=== PATIENT | male | born 1955 | race Caucasian/White ===

== ENCOUNTER 2017-01-09 09:42 | Outpatient (CLI) | payer OTHER ==
--- NOTE | 2017-01-09 11:17 | CT ---
CT CHEST WITHOUT CONTRAST: Date: 01/09/17 HISTORY: Lung cancer, restaging, status post radiation. FINDINGS: Comparison made with exam of 06/27/16. Absence of IV contrast reduces the sensitivity of exam, particularly for evaluation of mediastinal, hilar, and vascular structures. The nodule and adjacent patchy parenchymal density noted in the left suprahilar region on the previo us study demonstrates coalescence measuring 4.0 cm in largest AP dimension close to the mediastinal surface. Also noted is a new peripheral 7.0 mm nodule in the anterolateral aspect of the left upper lobe. Scarring in the right lung is again seen. No pleural or pericardial effusions are identified. Trache ostomy tube remains in place. No mediastinal lymphadenopathy is seen. There are vascular calcificati ons without evidence of aneurysmal dilatation of the abdominal aorta. There are degenerative changes in the spine. Upper abdominal tomograms demonstrate normal appearing adrenal glands. IMPRESSION: Interval worsening of the left upper lobe findings since 06/27/16. POS: [facility]
== END 2017-01-09 09:43 | disposition home or self-care (01) ==
LOC: CT 09:42
PROVIDERS: ATTEND Radiology Radiation Oncology
DX: C34.12 Malignant neoplasm of upper lobe, left bronchus or lung (principal); C32.0 Malignant neoplasm of glottis
CPT/HCPCS: 71250

== ENCOUNTER 2017-09-23 09:38 | Outpatient (CLI) | payer OTHER ==
--- NOTE | 2017-09-23 11:50 | CT ---
NONCONTRAST CT OF THE THORAX: INDICATION: History of lung cancer status post radiation; restaging exam. COMPARISON: CT of the thorax dated 01/09/17, 06/27/16, and 12/31/16. FINDINGS: The small pulmonary nodule seen within the left upper lobe peripherally on the comparison examination dated 01/09/17 has intervally enlarged now measuring 3.2 x 2.8 x 2 cm in its greatest AP, mediolatera l, and craniocaudad dimensions respectively. This abuts a confluent linear opacity projecting in the left suprahilar region into the left superior aspect of the mediastinum most suspicious for radiatio n fibrotic change. The extent of the geographic linear opacity within the left suprahilar region has increased in prominence from the comparison examination. There is a pulmonary nodule within the right upper lobe adjacent to an area of linear scarring that h as increased in size now measuring 7 mm where it previously measured 4.7 mm. The scarring along the right major fissure posteriorly on image 108 of the coronal series is stable. There is paraseptal em physema involving the lung apices. There is a right chest wall port in place. There is a tracheosto my tube in place. There has been interval development of healing rib fractures involving the left po sterolateral 9th and the left posterolateral 11th ribs. IMPRESSION: 1. Worsening nodular opacity seen within the region of a previously demonstrated 7 mm pulmonary nodu le in the left upper lobe. A component of this could be related to a mixture of radiation fibrosis a nd radiation pneumonitis; however, worsening lung mass is not excluded. There is an enlarging pulmon sathish nodule within the right upper lobe adjacent to some scarring within the right upper lobe now edgardo uring nearly 8 mm in size where it previously measured just under 5 mm. Short-term followup in 1-2 [facility] to document stability of the above findings is recommended. 2. The linear opacity projecting from the left suprahilar region appears slightly more prominent slava n on the prior examination which also may be related to worsening radiation fibrotic change. Short-t [facility] followup is recommended. 3. Tracheostomy tube and right chest wall port. 4. Scattered emphysema. 5. Interval development of healing left posterolateral 9th and 11th rib fractures. POS: [facility]
== END 2017-09-23 09:39 | disposition home or self-care (01) ==
LOC: SCSCT 09:38
PROVIDERS: ATTEND Radiology Radiation Oncology
DX: C34.90 Malignant neoplasm of unspecified part of unspecified bronchus or lung (principal); J98.4 Other disorders of lung; R91.8 Other nonspecific abnormal finding of lung field; J43.9 Emphysema, unspecified; S22.42XD Multiple fractures of ribs, left side, subsequent encounter for fracture with routine healing; Z93.0 Tracheostomy status
CPT/HCPCS: 71250

== ENCOUNTER 2017-11-17 08:17 | Day surgery (SDC) | payer OTHER, SELFPAY ==
[2017-11-17] MEDS ORDERED: PACLitaxel 150 MG in Sodium Chloride 0.9% 250 ML 250 ML IVPB SCH (09:30)
[2017-11-17] MEDS ORDERED: Sodium Chloride 0.9% 20 ML ONE (09:33)
[2017-11-17] MEDS ORDERED: Ondansetron HCl/PF 10 MG, Dexamethasone 10 MG in Sodium Chloride 0.9% 50 ML IVPB SCH (09:45)
[2017-11-17] MEDS ORDERED: CARBOplatin 250 MG in Sodium Chloride 0.9% 250 ML 250 ML IVPB SCH (09:45)
[2017-11-17] MEDS ORDERED: Ondansetron HCl/PF 10 MG in Sodium Chloride 0.9% 50 ML IVPB SCH (09:45)
[2017-11-17] MEDS ORDERED: Dexamethasone 10 MG in Sodium Chloride 0.9% 50 ML IVPB SCH (09:45)
[2017-11-17 12:34] VITALS: BP 143/94; TEMP 97.4
== END 2017-11-17 16:14 | disposition home or self-care (01) ==
LOC: ONC/OP 08:17
PROVIDERS: ATTEND Internal Medicine Hematology & Oncology
DX: Z51.11 Encounter for antineoplastic chemotherapy (principal); C32.0 Malignant neoplasm of glottis
CPT/HCPCS: 96367; 96413; 96417; A4216; J1100; J1642; J2405; J7050; J9045; J9267

== ENCOUNTER 2017-11-24 08:23 | Day surgery (SDC) | payer OTHER, SELFPAY ==
[2017-11-24] MEDS ORDERED: Sodium Chloride 0.9% 20 ML ONE (08:31)
[2017-11-24] MEDS ORDERED: PACLitaxel 150 MG in Sodium Chloride 0.9% 250 ML 250 ML IVPB SCH (08:45)
[2017-11-24] MEDS ORDERED: CARBOplatin 250 MG in Sodium Chloride 0.9% 250 ML 250 ML IVPB SCH (08:45)
[2017-11-24] MEDS ORDERED: Ondansetron HCl/PF 10 MG, Dexamethasone 10 MG in Sodium Chloride 0.9% 50 ML IVPB SCH (08:45)
[2017-11-24 08:53] VITALS: BP 168/82; TEMP 98.4
== END 2017-11-24 14:14 | disposition home or self-care (01) ==
LOC: ONC/OP 08:23
PROVIDERS: ATTEND Internal Medicine Hematology & Oncology
DX: Z51.11 Encounter for antineoplastic chemotherapy (principal); C32.0 Malignant neoplasm of glottis; K21.9 Gastro-esophageal reflux disease without esophagitis; E78.00 Pure hypercholesterolemia, unspecified; I10 Essential (primary) hypertension; Z87.891 Personal history of nicotine dependence; Z79.899 Other long term (current) drug therapy
CPT/HCPCS: 96375; 96413; 96417; A4216; J1100; J1642; J2405; J7050; J9045; J9267

== ENCOUNTER 2017-12-01 10:05 | Day surgery (SDC) | payer OTHER ==
[2017-12-01] MEDS ORDERED: Dexamethasone 10 MG, Ondansetron 2MG/ML MDV 10 MG, Admixture Fee 1 EACH in Sodium Chlor... IVPB SCH (10:30)
[2017-12-01] MEDS ORDERED: CARBOplatin 250 MG in Sodium Chloride 0.9% 250 ML 250 ML IVPB SCH (10:30)
[2017-12-01] MEDS ORDERED: PACLitaxel 150 MG in Sodium Chloride 0.9% 250 ML 250 ML IVPB SCH (10:30)
[2017-12-01] MEDS ORDERED: Sodium Chloride 0.9% 20 ML ONE (11:43)
[2017-12-01 11:55] VITALS: BP 125/67; TEMP 97.6
== END 2017-12-01 14:30 | disposition home or self-care (01) ==
LOC: ONC/OP 10:05
PROVIDERS: ATTEND Internal Medicine Hematology & Oncology
DX: Z51.11 Encounter for antineoplastic chemotherapy (principal); C32.0 Malignant neoplasm of glottis; K21.9 Gastro-esophageal reflux disease without esophagitis; E78.00 Pure hypercholesterolemia, unspecified; I10 Essential (primary) hypertension; Z87.891 Personal history of nicotine dependence; Z79.899 Other long term (current) drug therapy
CPT/HCPCS: 96367; 96413; 96417; A4216; J1100; J1642; J2405; J7050; J9045; J9267

== ENCOUNTER 2017-12-09 08:45 | Day surgery (SDC) | payer OTHER, SELFPAY ==
[2017-12-09] MEDS ORDERED: Sodium Chloride 0.9% 20 ML ONE (09:06)
[2017-12-09 09:25] VITALS: BP 166/82; TEMP 98.1
[2017-12-09] MEDS ORDERED: PACLitaxel 150 MG in Sodium Chloride 0.9% 250 ML 250 ML IVPB SCH (09:30)
[2017-12-09] MEDS ORDERED: Dexamethasone 10 MG, Ondansetron 2MG/ML MDV 10 MG, Admixture Fee 1 EACH in Sodium Chlor... IVPB SCH (09:30)
[2017-12-09] MEDS ORDERED: SODIUM CHLORIDE 0.9% IVPB SCH (09:30)
[2017-12-09] MEDS ORDERED: CARBOPLATIN IVPB SCH (09:30)
== END 2017-12-09 12:16 | disposition home or self-care (01) ==
LOC: ONC/OP 08:45
PROVIDERS: ATTEND Internal Medicine Hematology & Oncology
DX: Z51.11 Encounter for antineoplastic chemotherapy (principal); C32.0 Malignant neoplasm of glottis
CPT/HCPCS: 96375; 96413; 96417; A4216; J1100; J1642; J2405; J7050; J9045; J9267

== ENCOUNTER 2017-12-15 08:30 | Day surgery (SDC) | payer OTHER, SELFPAY ==
[2017-12-15] MEDS ORDERED: Sodium Chloride 0.9% 30 ML ONE (08:47)
[2017-12-15] MEDS ORDERED: Sodium Chloride 0.9% 20 ML ONE (08:51)
[2017-12-15] MEDS ORDERED: Dexamethasone 10 MG in Sodium Chloride 0.9% 50 ML IVPB SCH (09:15)
[2017-12-15] MEDS ORDERED: PACLitaxel 150 MG in Sodium Chloride 0.9% 250 ML 250 ML IVPB SCH (09:15)
[2017-12-15] MEDS ORDERED: Ondansetron 2MG/ML MDV 10 MG in Sodium Chloride 0.9% 50 ML IVP SCH (09:15)
[2017-12-15] MEDS ORDERED: CARBOplatin 250 MG in Sodium Chloride 0.9% 250 ML 250 ML IVPB SCH (09:15)
[2017-12-15] MEDS ORDERED: Dexamethasone 10 MG, Ondansetron 2MG/ML MDV 10 MG in Sodium Chloride 0.9% 50 ML IVPB SCH (09:30)
[2017-12-15 13:08] VITALS: BP 161/85; TEMP 98.5
== END 2017-12-15 13:10 | disposition home or self-care (01) ==
LOC: ONC/OP 08:30
PROVIDERS: ATTEND Internal Medicine Hematology & Oncology
DX: Z51.11 Encounter for antineoplastic chemotherapy (principal); C32.0 Malignant neoplasm of glottis
CPT/HCPCS: 96375; 96413; 96417; A4216; J1100; J1642; J2405; J7050; J9045; J9267

== ENCOUNTER 2017-12-22 09:45 | Day surgery (SDC) | payer OTHER ==
[2017-12-22] MEDS ORDERED: Sodium Chloride 0.9% 20 ML ONE (09:55)
[2017-12-22] MEDS ORDERED: Dexamethasone 10 MG, Ondansetron 2MG/ML MDV 10 MG, Admixture Fee 1 EACH in Sodium Chlor... IVPB SCH (10:15)
[2017-12-22] MEDS ORDERED: PACLitaxel 150 MG in Sodium Chloride 0.9% 250 ML 250 ML IVPB SCH (10:15)
[2017-12-22] MEDS ORDERED: CARBOplatin 250 MG in Sodium Chloride 0.9% 250 ML 250 ML IVPB SCH (10:30)
[2017-12-22 11:15] VITALS: BP 139/80; TEMP 98.2
== END 2017-12-22 13:36 | disposition home or self-care (01) ==
LOC: ONC/OP 09:45
PROVIDERS: ATTEND Internal Medicine Hematology & Oncology
DX: Z51.11 Encounter for antineoplastic chemotherapy (principal); C32.0 Malignant neoplasm of glottis; K21.9 Gastro-esophageal reflux disease without esophagitis; E78.00 Pure hypercholesterolemia, unspecified; I10 Essential (primary) hypertension; Z87.891 Personal history of nicotine dependence; Z79.899 Other long term (current) drug therapy
CPT/HCPCS: 96367; 96413; 96417; A4216; J1100; J1642; J2405; J7050; J9045; J9267

== ENCOUNTER 2017-12-29 09:19 | Day surgery (SDC) | payer OTHER ==
[2017-12-29] MEDS ORDERED: Sodium Chloride 0.9% 20 ML ONE (09:23)
[2017-12-29] MEDS ORDERED: Dexamethasone 10 MG in Sodium Chloride 0.9% 50 ML IVPB SCH (09:30)
[2017-12-29] MEDS ORDERED: CARBOplatin 250 MG in Sodium Chloride 0.9% 250 ML 250 ML IVPB SCH (09:45)
[2017-12-29] MEDS ORDERED: PACLitaxel 150 MG in Sodium Chloride 0.9% 250 ML 250 ML IVPB SCH (09:45)
[2017-12-29] MEDS ORDERED: Ondansetron 2MG/ML MDV 10 MG in Sodium Chloride 0.9% 50 ML IVP SCH (09:45)
[2017-12-29] MEDS ORDERED: Dexamethasone 10 MG, Ondansetron 2MG/ML MDV 10 MG in Sodium Chloride 0.9% 50 ML IVPB SCH (10:45)
[2017-12-29 18:12] VITALS: BP 134/57; TEMP 98.9
== END 2017-12-29 18:15 | disposition home or self-care (01) ==
LOC: ONC/OP 09:19
PROVIDERS: ATTEND Internal Medicine Hematology & Oncology
DX: Z51.11 Encounter for antineoplastic chemotherapy (principal); C32.0 Malignant neoplasm of glottis
CPT/HCPCS: 96375; 96413; 96417; A4216; J1100; J1642; J2405; J7050; J9045; J9267

== ENCOUNTER 2018-01-05 09:20 | Day surgery (SDC) | payer OTHER, SELFPAY ==
[2018-01-05] MEDS ORDERED: Sodium Chloride 0.9% 20 ML ONE (09:28)
[2018-01-05] MEDS ORDERED: Dexamethasone Sod Phosphate 10 MG, Ondansetron 2MG/ML MDV 10 MG in Sodium Chloride 0.9%... IVPB SCH (10:00)
[2018-01-05] MEDS ORDERED: CARBOplatin 250 MG in Sodium Chloride 0.9% 250 ML 250 ML IVPB SCH (10:00)
[2018-01-05] MEDS ORDERED: PACLitaxel 150 MG in Sodium Chloride 0.9% 250 ML 250 ML IVPB SCH (10:00)
[2018-01-05] MEDS ORDERED: Dexamethasone 10 MG, Ondansetron 2MG/ML MDV 10 MG in Sodium Chloride 0.9% 50 ML IVPB SCH (10:00)
[2018-01-05 10:04] VITALS: BP 145/79; TEMP 99.2
== END 2018-01-05 14:04 | disposition home or self-care (01) ==
LOC: ONC/OP 09:20
PROVIDERS: ATTEND Internal Medicine Hematology & Oncology
DX: Z51.11 Encounter for antineoplastic chemotherapy (principal); C32.0 Malignant neoplasm of glottis; K21.9 Gastro-esophageal reflux disease without esophagitis; E78.00 Pure hypercholesterolemia, unspecified; I10 Essential (primary) hypertension; M43.10 Spondylolisthesis, site unspecified; Z87.891 Personal history of nicotine dependence; Z79.899 Other long term (current) drug therapy; Z93.0 Tracheostomy status
CPT/HCPCS: 96375; 96413; 96417; A4216; J1100; J1642; J2405; J7050; J9045; J9267

== ENCOUNTER 2018-01-12 09:00 | Day surgery (SDC) | payer OTHER, SELFPAY ==
[2018-01-12] MEDS ORDERED: Sodium Chloride 0.9% 20 ML ONE (09:17)
[2018-01-12 09:41] VITALS: BP 131/73; TEMP 99
[2018-01-12] MEDS ORDERED: Dexamethasone 10 MG, Ondansetron 2MG/ML MDV 10 MG in Sodium Chloride 0.9% 50 ML IVPB SCH (09:45)
[2018-01-12] MEDS ORDERED: CARBOplatin 250 MG in Sodium Chloride 0.9% 250 ML 250 ML IVPB SCH (10:00)
[2018-01-12] MEDS ORDERED: PACLitaxel 150 MG in Sodium Chloride 0.9% 250 ML 250 ML IVPB SCH (10:00)
[2018-01-12] MEDS ORDERED: Dexamethasone Sod Phosphate 10 MG, Ondansetron 2MG/ML MDV 10 MG in Sodium Chloride 0.9%... IVPB SCH (10:15)
== END 2018-01-12 17:30 | disposition home or self-care (01) ==
LOC: ONC/OP 09:00
PROVIDERS: ATTEND Internal Medicine Hematology & Oncology
DX: Z51.11 Encounter for antineoplastic chemotherapy (principal); C32.0 Malignant neoplasm of glottis; K21.9 Gastro-esophageal reflux disease without esophagitis; E78.00 Pure hypercholesterolemia, unspecified; I10 Essential (primary) hypertension; M43.10 Spondylolisthesis, site unspecified; Z87.891 Personal history of nicotine dependence; Z79.899 Other long term (current) drug therapy; Z93.0 Tracheostomy status
CPT/HCPCS: 96375; 96413; 96417; A4216; J1100; J1642; J2405; J7050; J9045; J9267

== ENCOUNTER 2018-01-19 08:29 | Day surgery (SDC) | payer OTHER, SELFPAY ==
[2018-01-19] MEDS ORDERED: Sodium Chloride 0.9% 20 ML ONE (08:39)
[2018-01-19] MEDS ORDERED: Dexamethasone 4 mg/ml Vial SLOW IVP SCH (08:45)
[2018-01-19] MEDS ORDERED: CARBOplatin 250 MG in Sodium Chloride 0.9% 250 ML 250 ML IVPB SCH (08:45)
[2018-01-19] MEDS ORDERED: Ondansetron HCl/PF 4 MG/2 ML Vial SLOW IVP SCH (08:45)
[2018-01-19] MEDS ORDERED: PACLitaxel 150 MG in Sodium Chloride 0.9% 250 ML 250 ML IVPB SCH (08:45)
[2018-01-19 09:43] VITALS: BP 160/80; TEMP 99.3
== END 2018-01-19 11:52 | disposition home or self-care (01) ==
LOC: ONC/OP 08:29
PROVIDERS: ATTEND Internal Medicine Hematology & Oncology
DX: Z51.11 Encounter for antineoplastic chemotherapy (principal); C32.0 Malignant neoplasm of glottis; M43.10 Spondylolisthesis, site unspecified; K21.9 Gastro-esophageal reflux disease without esophagitis; E78.00 Pure hypercholesterolemia, unspecified; I10 Essential (primary) hypertension; Z87.891 Personal history of nicotine dependence; Z79.899 Other long term (current) drug therapy; Z93.0 Tracheostomy status
CPT/HCPCS: 96375; 96413; 96417; J1100; J1642; J2405; J7050; J9045; J9267

== ENCOUNTER 2018-01-26 08:22 | Day surgery (SDC) | payer OTHER, SELFPAY ==
[2018-01-26] MEDS ORDERED: Sodium Chloride 0.9% 20 ML ONE (08:26)
[2018-01-26] MEDS ORDERED: PACLitaxel 150 MG in Sodium Chloride 0.9% 250 ML 250 ML IVPB SCH (08:45)
[2018-01-26] MEDS ORDERED: Dexamethasone 10 MG, Ondansetron 2MG/ML MDV 10 MG, Admixture Fee 1 EACH in Sodium Chlor... IVPB SCH (08:45)
[2018-01-26] MEDS ORDERED: CARBOplatin 250 MG in Sodium Chloride 0.9% 250 ML 250 ML IVPB SCH (08:45)
[2018-01-26] MEDS ORDERED: Dexamethasone Sod Phosphate 10 MG, Ondansetron 2MG/ML MDV 10 MG, Admixture Fee 1 EACH i... IVPB SCH (08:45)
[2018-01-26 10:50] VITALS: BP 160/80; TEMP 98.4
== END 2018-01-26 13:21 | disposition home or self-care (01) ==
LOC: ONC/OP 08:22
PROVIDERS: ATTEND Internal Medicine Hematology & Oncology
DX: Z51.11 Encounter for antineoplastic chemotherapy (principal); C32.0 Malignant neoplasm of glottis; Z79.899 Other long term (current) drug therapy
CPT/HCPCS: 96375; 96413; 96417; J1100; J1642; J2405; J7050; J9045; J9267

== ENCOUNTER 2018-02-02 08:29 | Day surgery (SDC) | payer OTHER ==
[2018-02-02] MEDS ORDERED: Sodium Chloride 0.9% 20 ML ONE (08:35)
[2018-02-02] MEDS ORDERED: Dexamethasone 10 MG, Ondansetron 2MG/ML MDV 10 MG, Admixture Fee 1 EACH in Sodium Chlor... IVPB SCH (08:45)
[2018-02-02] MEDS ORDERED: PACLitaxel 150 MG in Sodium Chloride 0.9% 250 ML 250 ML IVPB SCH (08:45)
[2018-02-02] MEDS ORDERED: CARBOplatin 250 MG in Sodium Chloride 0.9% 250 ML 250 ML IVPB SCH (09:00)
[2018-02-02 09:45] VITALS: BP 143/74; TEMP 98.4
== END 2018-02-02 12:39 | disposition home or self-care (01) ==
LOC: ONC/OP 08:29
PROVIDERS: ATTEND Internal Medicine Hematology & Oncology
DX: Z51.11 Encounter for antineoplastic chemotherapy (principal); C32.0 Malignant neoplasm of glottis; K21.9 Gastro-esophageal reflux disease without esophagitis; E78.00 Pure hypercholesterolemia, unspecified; I10 Essential (primary) hypertension; Z87.891 Personal history of nicotine dependence; Z79.899 Other long term (current) drug therapy; Z93.0 Tracheostomy status
CPT/HCPCS: 96375; 96413; 96417; J1100; J1642; J2405; J7050; J9045; J9267

== ENCOUNTER 2018-02-09 11:55 | Day surgery (SDC) | payer OTHER, SELFPAY ==
[2018-02-09] MEDS ORDERED: Sodium Chloride 0.9% 20 ML ONE (12:06)
[2018-02-09] MEDS ORDERED: Ondansetron 2MG/ML MDV 10 MG, Dexamethasone 10 MG in Sodium Chloride 0.9% 50 ML IVPB SCH (12:30)
[2018-02-09] MEDS ORDERED: CARBOplatin 250 MG in Sodium Chloride 0.9% 250 ML 250 ML IVPB SCH (12:30)
[2018-02-09] MEDS ORDERED: PACLitaxel 150 MG in Sodium Chloride 0.9% 250 ML 250 ML IVPB SCH (12:30)
[2018-02-09 12:40] VITALS: BP 162/78; TEMP 98.7
== END 2018-02-09 16:04 | disposition home or self-care (01) ==
LOC: ONC/OP 11:55
PROVIDERS: ATTEND Internal Medicine Hematology & Oncology
DX: Z51.11 Encounter for antineoplastic chemotherapy (principal); C32.0 Malignant neoplasm of glottis; K21.9 Gastro-esophageal reflux disease without esophagitis; E78.00 Pure hypercholesterolemia, unspecified; I10 Essential (primary) hypertension; Z87.891 Personal history of nicotine dependence; Z79.899 Other long term (current) drug therapy; Z93.0 Tracheostomy status
CPT/HCPCS: 96367; 96413; 96417; J1100; J1642; J2405; J7050; J9045; J9267

== ENCOUNTER 2018-02-11 09:24 | Outpatient (CLI) | payer OTHER ==
[~2018-02-11 09:24] MED LIST: Iopamidol 300 61% 100 ML VIAL FS ONE
--- NOTE | 2018-02-11 14:47 | CT ---
CT THORAX WITH IV CONTRAST: 02/11/2018 HISTORY: Lung cancer. Follow-up evaluation. COMPARISON: 09/23/2017 and 01/09/2017 FINDINGS: The parenchymal opacity previously noted in the right hilar region and extending laterally and superi amor to the pleura on the left is again present. The overall configuration of this area of parenchym al opacity, with areas of spiculation along the margins of the opacity, have changed in configuration , and the overall measurements are difficult to directly compare due to change in configuration. How ever, the more peripherally located mass-like portion of this lesion previously measured 3.3 cm in gr eatest craniocaudal dimension and now measures 2.7 cm. The more medially located portion of this par enchymal opacity subjectively appears larger in size, with greatest AP dimension 4.4 cm x 2.6 cm boswell sverse, and the greatest AP dimension on prior study was approximately 4 cm x 2.3 cm transverse. The linear densities within the left upper lobe have also increased from prior exam. While at least a c omponent of this is probably related to radiation fibrosis/pneumonitis, enlargement of a neoplastic p rocess should also be considered. There is a stable, 8 mm pulmonary nodule seen in the right upper lobe, when compared to the most rece nt examination. There is a ground glass nodule seen along the minor fissure on the right, and it is also again seen, measuring approximately 9 mm. This was also seen on a prior exam in 2017 and unchan ge. A linear area of scarring in the right upper lobe, as well as in the right lower lobe, is again present and stable from prior exam. No new pulmonary nodule or mass is appreciated. There is no pl eural effusion. No lymphadenopathy is present. Tracheostomy device remains in place. The right subclavian Mediport catheter is stable in position. Vascular calcifications are again seen in the coronary arteries, as well as involving the thoracic an d visualized upper abdominal aorta. The upper abdomen demonstrates a normal CT appearance and is stable from the prior study. IMPRESSION: 1. Worsening parenchymal opacities with areas demonstrating spiculation within the left upper lobe. There is volume loss in the left upper lobe. While at least a component of these findings is probab ly related to radiation fibrosis, a worsening neoplastic process should be considered. 2. Stable right pulmonary nodules, including stable ground glass nodule adjacent to the minor fissur e. 3. No lytic or sclerotic osseous lesion is visualized, but there are remote left-sided rib fractures again present. 4. Prominent bilateral glenohumeral osteoarthropathy. POS: [facility]
== END 2018-02-11 09:25 | disposition home or self-care (01) ==
LOC: SCSCT 09:24
PROVIDERS: ATTEND Internal Medicine Hematology & Oncology
DX: C32.8 Malignant neoplasm of overlapping sites of larynx (principal); M19.012 Primary osteoarthritis, left shoulder; M19.011 Primary osteoarthritis, right shoulder; R91.8 Other nonspecific abnormal finding of lung field
CPT/HCPCS: 71260

== ENCOUNTER 2018-02-16 11:59 | Day surgery (SDC) | payer OTHER ==
[2018-02-16] MEDS ORDERED: Sodium Chloride 0.9% 20 ML ONE (12:08)
[2018-02-16] MEDS ORDERED: Ondansetron 2MG/ML MDV 10 MG, Dexamethasone 10 MG in Sodium Chloride 0.9% 50 ML IVPB SCH (12:45)
[2018-02-16] MEDS ORDERED: PACLitaxel 150 MG in Sodium Chloride 0.9% 250 ML 250 ML IVPB SCH (13:00)
[2018-02-16] MEDS ORDERED: CARBOplatin 250 MG in Sodium Chloride 0.9% 250 ML 250 ML IVPB SCH (13:00)
== END 2018-02-16 16:12 | disposition home or self-care (01) ==
LOC: ONC/OP 11:59
PROVIDERS: ATTEND Internal Medicine Hematology & Oncology
DX: Z51.11 Encounter for antineoplastic chemotherapy (principal); C32.0 Malignant neoplasm of glottis
CPT/HCPCS: 96375; 96413; 96417; J1100; J1642; J2405; J7050; J9045; J9267

== ENCOUNTER 2018-03-02 12:04 | Day surgery (SDC) | payer OTHER ==
[2018-03-02] MEDS ORDERED: Sodium Chloride 0.9% 20 ML ONE (12:08)
[2018-03-02] MEDS ORDERED: Dexamethasone 10 MG/ML VIAL SLOW IVP SCH (12:30)
[2018-03-02] MEDS ORDERED: CARBOplatin 250 MG in Sodium Chloride 0.9% 250 ML 250 ML IVPB SCH (12:30)
[2018-03-02] MEDS ORDERED: Ondansetron PF 4 MG/2 ML Vial SLOW IVP SCH (12:30)
[2018-03-02] MEDS ORDERED: PACLitaxel 150 MG in Sodium Chloride 0.9% 250 ML 250 ML IVPB SCH (12:30)
== END 2018-03-02 15:33 | disposition home or self-care (01) ==
LOC: ONC/OP 12:04
PROVIDERS: ATTEND Internal Medicine Hematology & Oncology
DX: Z51.11 Encounter for antineoplastic chemotherapy (principal); C32.0 Malignant neoplasm of glottis
CPT/HCPCS: 96375; 96413; 96417; J1100; J1642; J2405; J7050; J9045; J9267

== ENCOUNTER 2018-03-09 08:15 | Day surgery (SDC) | payer OTHER ==
[2018-03-09] MEDS ORDERED: Dexamethasone 10 MG, Ondansetron 2MG/ML MDV 10 MG in Sodium Chloride 0.9% 50 ML IVPB SCH (08:30)
[2018-03-09] MEDS ORDERED: PACLitaxel 150 MG in Sodium Chloride 0.9% 250 ML 250 ML IVPB SCH (08:45)
[2018-03-09] MEDS ORDERED: CARBOplatin 250 MG in Sodium Chloride 0.9% 250 ML 250 ML IVPB SCH (08:45)
[2018-03-09 09:06] VITALS: BP 131/69; TEMP 99.4
[2018-03-09] MEDS: Sodium Chloride 0.9% 20 ML ONE ×2 (09:45→10:21)
== END 2018-03-09 19:28 | disposition home or self-care (01) ==
LOC: ONC/OP 08:15
PROVIDERS: ATTEND Internal Medicine Hematology & Oncology
DX: Z51.11 Encounter for antineoplastic chemotherapy (principal); C32.0 Malignant neoplasm of glottis; K21.9 Gastro-esophageal reflux disease without esophagitis; E78.00 Pure hypercholesterolemia, unspecified; I10 Essential (primary) hypertension; Z87.891 Personal history of nicotine dependence; Z79.899 Other long term (current) drug therapy
CPT/HCPCS: 96372; 96413; 96417; J1100; J1642; J2405; J7050; J9045; J9267

== ENCOUNTER 2018-03-16 08:14 | Day surgery (SDC) | payer OTHER ==
[2018-03-16] MEDS ORDERED: Sodium Chloride 0.9% 20 ML ONE (08:37)
[2018-03-16] MEDS ORDERED: PACLitaxel 150 MG in Sodium Chloride 0.9% 250 ML 250 ML IVPB SCH (09:15)
[2018-03-16] MEDS ORDERED: CARBOplatin 250 MG in Sodium Chloride 0.9% 250 ML 250 ML IVPB SCH (09:30)
[2018-03-16] MEDS ORDERED: Dexamethasone 10 MG, Ondansetron HCl/PF 10 MG in Sodium Chloride 0.9% 50 ML IVPB SCH (09:30)
[2018-03-16 09:43] VITALS: BP 143/70; TEMP 98.2
== END 2018-03-16 13:02 | disposition home or self-care (01) ==
LOC: ONC/OP 08:14
PROVIDERS: ATTEND Internal Medicine Hematology & Oncology
DX: Z51.11 Encounter for antineoplastic chemotherapy (principal); C32.0 Malignant neoplasm of glottis; K21.9 Gastro-esophageal reflux disease without esophagitis; E78.00 Pure hypercholesterolemia, unspecified; I10 Essential (primary) hypertension; Z87.891 Personal history of nicotine dependence; Z79.899 Other long term (current) drug therapy; Z93.0 Tracheostomy status
CPT/HCPCS: 96375; 96413; 96417; J1100; J1642; J2405; J7050; J9045; J9267

== ENCOUNTER 2018-03-23 12:27 | Day surgery (SDC) | payer OTHER ==
[2018-03-23] MEDS ORDERED: Sodium Chloride 0.9% 30 ML ONE (12:49)
[2018-03-23] MEDS ORDERED: PACLitaxel 150 MG in Sodium Chloride 0.9% 250 ML 250 ML IVPB SCH (13:00)
[2018-03-23] MEDS ORDERED: Ondansetron 2MG/ML MDV 10 MG, Dexamethasone 10 MG in Sodium Chloride 0.9% 50 ML IVP SCH (13:00)
[2018-03-23] MEDS ORDERED: CARBOplatin 250 MG in Sodium Chloride 0.9% 250 ML 250 ML IVPB SCH (13:00)
== END 2018-03-23 16:24 | disposition home or self-care (01) ==
LOC: ONC/OP 12:27
PROVIDERS: ATTEND Internal Medicine Hematology & Oncology
DX: Z51.11 Encounter for antineoplastic chemotherapy (principal); C32.0 Malignant neoplasm of glottis; K21.9 Gastro-esophageal reflux disease without esophagitis; I10 Essential (primary) hypertension; Z79.899 Other long term (current) drug therapy; Z87.891 Personal history of nicotine dependence
CPT/HCPCS: 96375; 96413; 96417; J1100; J1642; J2405; J7050; J9045; J9267

== ENCOUNTER 2018-04-06 08:30 | Day surgery (SDC) | payer OTHER ==
[2018-04-06] MEDS ORDERED: Dexamethasone 10 MG/ML VIAL SLOW IVP SCH (09:30)
[2018-04-06] MEDS ORDERED: PACLitaxel 150 MG in Sodium Chloride 0.9% 250 ML 250 ML IVPB SCH (09:30)
[2018-04-06] MEDS ORDERED: Ondansetron PF 4 MG/2 ML Vial IVP SCH (09:30)
[2018-04-06] MEDS ORDERED: CARBOplatin 250 MG in Sodium Chloride 0.9% 250 ML 250 ML IVPB SCH (09:30)
[2018-04-06 09:40] VITALS: BP 143/67; TEMP 98
[2018-04-06] MEDS ORDERED: Sodium Chloride 0.9% 30 ML ONE (10:01)
== END 2018-04-06 12:56 | disposition home or self-care (01) ==
LOC: ONC/OP 08:30
PROVIDERS: ATTEND Internal Medicine Hematology & Oncology
DX: Z51.11 Encounter for antineoplastic chemotherapy (principal); C32.0 Malignant neoplasm of glottis; Z79.899 Other long term (current) drug therapy
CPT/HCPCS: 96375; 96413; 96417; J1100; J1642; J2405; J7050; J9045; J9267

== ENCOUNTER 2018-04-13 08:20 | Day surgery (SDC) | payer SELFPAY ==
[2018-04-13] MEDS ORDERED: PACLitaxel 150 MG in Sodium Chloride 0.9% 250 ML 250 ML IVPB SCH (08:45)
[2018-04-13] MEDS ORDERED: Dexamethasone 10 MG/ML VIAL SLOW IVP SCH (08:45)
[2018-04-13] MEDS ORDERED: Ondansetron PF 4 MG/2 ML Vial IVP SCH (08:45)
[2018-04-13] MEDS ORDERED: CARBOplatin 250 MG in Sodium Chloride 0.9% 250 ML 250 ML IVPB SCH (08:45)
[2018-04-13] MEDS ORDERED: Sodium Chloride 0.9% 20 ML ONE (08:52)
[2018-04-13 09:21] VITALS: BP 134/72; TEMP 98.8
[2018-04-13] MEDS ORDERED: Prevnar 13-Val Conj/PF 0.5 ML SYRINGE IM ONE (09:45)
== END 2018-04-13 12:31 | disposition home or self-care (01) ==
LOC: ONC/OP 08:20
PROVIDERS: ATTEND Internal Medicine Hematology & Oncology
DX: Z51.11 Encounter for antineoplastic chemotherapy (principal); C32.0 Malignant neoplasm of glottis; Z79.899 Other long term (current) drug therapy
CPT/HCPCS: 96375; 96413; 96417; J1100; J1642; J2405; J7050; J9045; J9267

== ENCOUNTER 2018-04-20 08:26 | Day surgery (SDC) | payer OTHER, SELFPAY ==
[2018-04-20] MEDS ORDERED: Sodium Chloride 0.9% 20 ML ONE (08:54)
[2018-04-20] MEDS ORDERED: SODIUM CHLORIDE 0.9% IVPB SCH (09:00)
[2018-04-20] MEDS ORDERED: PACLitaxel 150 MG in Sodium Chloride 0.9% 250 ML 250 ML IVPB SCH (09:00)
[2018-04-20] MEDS ORDERED: CARBOPLATIN IVPB SCH (09:00)
[2018-04-20] MEDS ORDERED: Dexamethasone 10 MG, Ondansetron 2MG/ML MDV 10 MG, Admixture Fee 1 EACH in Sodium Chlor... IVPB SCH (09:00)
[2018-04-20 09:07] VITALS: BP 165/79; TEMP 98.7
== END 2018-04-20 16:21 | disposition home or self-care (01) ==
LOC: ONC/OP 08:26
PROVIDERS: ATTEND Internal Medicine Hematology & Oncology
DX: Z51.11 Encounter for antineoplastic chemotherapy (principal); C32.0 Malignant neoplasm of glottis; M43.10 Spondylolisthesis, site unspecified; K21.9 Gastro-esophageal reflux disease without esophagitis; E78.00 Pure hypercholesterolemia, unspecified; I10 Essential (primary) hypertension; Z79.899 Other long term (current) drug therapy
CPT/HCPCS: 96375; 96413; 96417; J1100; J1642; J2405; J7050; J9045; J9267

== ENCOUNTER 2018-04-27 08:30 | Day surgery (SDC) | payer OTHER, SELFPAY ==
[2018-04-27 08:47] VITALS: BP 149/76; TEMP 98.8
[2018-04-27] MEDS ORDERED: Dexamethasone 10 MG/ML VIAL SLOW IVP SCH (09:00)
[2018-04-27] MEDS ORDERED: Ondansetron PF 4 MG/2 ML Vial IVP SCH (09:00)
[2018-04-27] MEDS ORDERED: PACLitaxel 150 MG in Sodium Chloride 0.9% 250 ML 250 ML IVPB SCH (09:00)
[2018-04-27] MEDS ORDERED: Sodium Chloride 0.9% 20 ML ONE (09:23)
[2018-04-27] MEDS ORDERED: CARBOPLATIN IVPB SCH (10:00)
[2018-04-27] MEDS ORDERED: SODIUM CHLORIDE 0.9% IVPB SCH (10:00)
== END 2018-04-27 11:46 | disposition home or self-care (01) ==
LOC: ONC/OP 08:30
PROVIDERS: ATTEND Internal Medicine Hematology & Oncology
DX: Z51.11 Encounter for antineoplastic chemotherapy (principal); C32.0 Malignant neoplasm of glottis; I10 Essential (primary) hypertension; E78.00 Pure hypercholesterolemia, unspecified; K21.9 Gastro-esophageal reflux disease without esophagitis; Z98.890 Other specified postprocedural states; Z79.899 Other long term (current) drug therapy
CPT/HCPCS: 96375; 96413; 96417; J1100; J1642; J2405; J7050; J9045; J9267

== ENCOUNTER 2018-05-04 08:27 | Day surgery (SDC) | payer OTHER ==
[2018-05-04] MEDS ORDERED: Sodium Chloride 0.9% 20 ML ONE (08:32)
[2018-05-04] MEDS ORDERED: PACLitaxel 150 MG in Sodium Chloride 0.9% 250 ML 250 ML IVPB SCH (08:45)
[2018-05-04] MEDS ORDERED: CARBOPLATIN IVPB SCH (09:00)
[2018-05-04] MEDS ORDERED: Ondansetron PF 4 MG/2 ML Vial SLOW IVP SCH (09:00)
[2018-05-04] MEDS ORDERED: SODIUM CHLORIDE 0.9% IVPB SCH (09:00)
[2018-05-04] MEDS ORDERED: Dexamethasone 10 MG/ML VIAL SLOW IVP SCH (09:00)
[2018-05-04 09:18] VITALS: BP 168/81; TEMP 99
== END 2018-05-04 12:02 | disposition home or self-care (01) ==
LOC: ONC/OP 08:27
PROVIDERS: ATTEND Internal Medicine Hematology & Oncology
DX: Z51.11 Encounter for antineoplastic chemotherapy (principal); C32.0 Malignant neoplasm of glottis; I10 Essential (primary) hypertension; K21.9 Gastro-esophageal reflux disease without esophagitis; E78.00 Pure hypercholesterolemia, unspecified; Z87.891 Personal history of nicotine dependence; Z79.899 Other long term (current) drug therapy; Z98.890 Other specified postprocedural states
CPT/HCPCS: 96375; 96413; 96417; J1100; J1642; J2405; J7050; J9045; J9267

== ENCOUNTER 2018-05-11 09:29 | Day surgery (SDC) | payer OTHER, SELFPAY ==
[~2018-05-11 09:29] MED LIST changes: +CARBOPLATIN IVPB SCH; +Dexamethasone 10 MG/ML VIAL SLOW IVP SCH; -Iopamidol 300 61% 100 ML VIAL FS ONE; +Ondansetron PF 4 MG/2 ML Vial SLOW IVP SCH; +PACLitaxel 150 MG in Sodium Chloride 0.9% 250 ML 250 ML IVPB SCH; +SODIUM CHLORIDE 0.9% IVPB SCH
[2018-05-11] MEDS ORDERED: Sodium Chloride 0.9% 20 ML ONE (09:57)
[2018-05-11 11:05] VITALS: BP 161/80; TEMP 98.7
== END 2018-05-11 13:40 | disposition home or self-care (01) ==
LOC: ONC/OP 09:29
PROVIDERS: ATTEND Internal Medicine Hematology & Oncology
DX: Z51.11 Encounter for antineoplastic chemotherapy (principal); C32.0 Malignant neoplasm of glottis; I10 Essential (primary) hypertension; K21.9 Gastro-esophageal reflux disease without esophagitis; E78.00 Pure hypercholesterolemia, unspecified; Z98.890 Other specified postprocedural states; Z87.891 Personal history of nicotine dependence; Z79.899 Other long term (current) drug therapy
CPT/HCPCS: 96375; 96413; 96417; J1100; J1642; J2405; J7050; J9045; J9267

== ENCOUNTER 2018-05-11 09:41 | Outpatient (CLI) | payer OTHER ==
--- NOTE | 2018-05-11 11:33 | ULT ---
RIGHT UPPER EXTREMITY VENOUS DUPLEX ULTRASOUND INCLUDING COLOR AND SPECTRAL DOPPLER IMAGING: Date: 05/11/18 HISTORY: Right upper extremity swelling and edema. FINDINGS: Visualized right internal jugular, subclavian, brachial, radial, and ulnar veins, as well as the basi lic and cephalic veins are demonstrated. No evidence for intraluminal thrombus. There is phase flow w ith normal compressibility and normal augmentation. No intraluminal thrombus. IMPRESSION: No evidence for deep venous thrombosis involving the right upper extremity. POS: [facility]
== END 2018-05-11 09:42 | disposition home or self-care (01) ==
LOC: ULT 09:41
PROVIDERS: ATTEND Internal Medicine Hematology & Oncology
DX: I82.90 Acute embolism and thrombosis of unspecified vein (principal); M79.601 Pain in right arm; M79.89 Other specified soft tissue disorders

== ENCOUNTER 2018-05-14 10:21 | Outpatient (CLI) | payer OTHER ==
--- NOTE | 2018-05-14 13:43 | CT ---
CT CHEST WITH CONTRAST: HISTORY: C78.00, lung mets. COMPARISON: CT chest 02/11/2018. FINDINGS: The confluent left upper lobe mass has slightly decreased in size from comparison examination. The g reatest AP dimension previously 4.5 cm, now 3.7 cm. The greatest transverse dimension is 2.2 cm, pre viously 2.6 cm. Peripheral to this in a more triangular shape at the base of this triangle measures up to 1.9 c in size, previously 2.7 cm. This all reflects size decreased underlying malignant proces s versus retraction of radiation fibrosis. Previously found nodule in the right upper lobe previousl y measured 8 mm and now measures 7 mm. No new suspicious pulmonary nodules in the lungs. No pneumothorax. No effusion. Satisfactory appearance of tracheostomy tube. There is an old left a nterior 6th rib fracture which has healed. The same is true for left anterior 7th rib fracture which has healed. Nonunion left posterolateral 9th rib fracture and 10th rib fracture as well as 11th rib fracture. No acute superimposed fracture. Sternum and manubrium are intact. No suspicious osteoly tic or osteoblastic lesion. Severe degenerative changes of both glenohumeral joints with ossification of the capsule bilaterally. Limited evaluation of the upper abdomen was unremarkable. IMPRESSION: 1. Interval size decrease of the left upper lobe masses. 2. Slight interval decrease right upper lobe pulmonary nodule. POS: [facility]
== END 2018-05-14 10:22 | disposition home or self-care (01) ==
LOC: SCSCT 10:21
PROVIDERS: ATTEND Internal Medicine Hematology & Oncology
DX: C76.0 Malignant neoplasm of head, face and neck (principal); C78.00 Secondary malignant neoplasm of unspecified lung
CPT/HCPCS: 71260

== ENCOUNTER 2018-05-18 08:20 | Day surgery (SDC) | payer OTHER, SELFPAY ==
[~2018-05-18 08:20] MED LIST changes: +Dexamethasone 10 MG in Sodium Chloride 0.9% 50 ML IVPB SCH; +Ondansetron 2MG/ML MDV 10 MG in Sodium Chloride 0.9% 50 ML IVPB SCH; +Ondansetron 2MG/ML MDV 10 MG, Dexamethasone Sod Phosphate 10 MG in Sodium Chloride 0.9%... IVPB SCH; -Ondansetron PF 4 MG/2 ML Vial SLOW IVP SCH
[2018-05-18] MEDS ORDERED: Sodium Chloride 0.9% 30 ML ONE (08:45)
[2018-05-18 09:19] VITALS: BP 154/77; TEMP 97.9
== END 2018-05-18 12:14 | disposition home or self-care (01) ==
LOC: ONC/OP 08:20
PROVIDERS: ATTEND Internal Medicine Hematology & Oncology
DX: Z51.11 Encounter for antineoplastic chemotherapy (principal); C32.0 Malignant neoplasm of glottis; K21.9 Gastro-esophageal reflux disease without esophagitis; E78.00 Pure hypercholesterolemia, unspecified; I10 Essential (primary) hypertension; Z87.891 Personal history of nicotine dependence; Z79.899 Other long term (current) drug therapy
CPT/HCPCS: 96375; 96413; 96417; J1100; J1642; J2405; J7050; J9045; J9267

== ENCOUNTER 2018-06-01 00:02 | Day surgery (SDC) | payer OTHER ==
[2018-06-01] MEDS ORDERED: PACLitaxel 150 MG in Sodium Chloride 0.9% 250 ML 250 ML IVPB SCH (02:45)
[2018-06-01] MEDS ORDERED: Ondansetron 2MG/ML MDV 10 MG in Sodium Chloride 0.9% 50 ML IVPB SCH (02:45)
[2018-06-01] MEDS ORDERED: CARBOPLATIN IVPB SCH (02:45)
[2018-06-01] MEDS ORDERED: SODIUM CHLORIDE 0.9% IVPB SCH (02:45)
[2018-06-01] MEDS ORDERED: Dexamethasone 10 MG in Sodium Chloride 0.9% 50 ML IVPB SCH (02:45)
[2018-06-01] MEDS ORDERED: Ondansetron 2MG/ML MDV 10 MG, Dexamethasone Sod Phosphate 10 MG in Sodium Chloride 0.9%... IVPB SCH (07:30)
[2018-06-01 08:49] VITALS: BP 135/71; TEMP 98.8
[2018-06-01] MEDS ORDERED: Sodium Chloride 0.9% 20 ML ONE (08:51)
== END 2018-06-01 12:12 | disposition home or self-care (01) ==
LOC: ONC/OP 00:02
PROVIDERS: ATTEND Internal Medicine Hematology & Oncology
DX: Z51.11 Encounter for antineoplastic chemotherapy (principal); C32.0 Malignant neoplasm of glottis; Z79.899 Other long term (current) drug therapy
CPT/HCPCS: 96375; 96413; 96417; J1100; J1642; J2405; J7050; J9045; J9267

== ENCOUNTER 2018-06-15 08:28 | Day surgery (SDC) | payer OTHER ==
[~2018-06-15 08:28] MED LIST changes: -Dexamethasone 10 MG/ML VIAL SLOW IVP SCH; -Ondansetron 2MG/ML MDV 10 MG, Dexamethasone Sod Phosphate 10 MG in Sodium Chloride 0.9%... IVPB SCH
[2018-06-15] MEDS ORDERED: Ondansetron 2MG/ML MDV 10 MG, Dexamethasone 10 MG in Sodium Chloride 0.9% 50 ML IVPB SCH (08:45)
[2018-06-15] MEDS ORDERED: Sodium Chloride 0.9% 20 ML ONE (08:45)
[2018-06-15 12:01] VITALS: BP 157/80; TEMP 98.8
== END 2018-06-15 13:22 | disposition home or self-care (01) ==
LOC: ONC/OP 08:28
PROVIDERS: ATTEND Internal Medicine Hematology & Oncology
DX: Z51.11 Encounter for antineoplastic chemotherapy (principal); C32.0 Malignant neoplasm of glottis
CPT/HCPCS: 96375; 96413; 96417; J1100; J1642; J2405; J7050; J9045; J9267

== ENCOUNTER 2018-06-29 08:28 | Day surgery (SDC) | payer OTHER ==
[2018-06-29] MEDS ORDERED: Sodium Chloride 0.9% 20 ML ONE (08:44)
[2018-06-29] MEDS ORDERED: PACLitaxel 150 MG in Sodium Chloride 0.9% 250 ML 250 ML IVPB SCH (09:30)
[2018-06-29] MEDS ORDERED: Ondansetron 2MG/ML MDV 10 MG, Dexamethasone 10 MG in Sodium Chloride 0.9% 50 ML IVPB SCH (09:30)
[2018-06-29 09:35] VITALS: BP 130/68; TEMP 98.9
[2018-06-29] MEDS ORDERED: CARBOPLATIN IVPB SCH (10:00)
[2018-06-29] MEDS ORDERED: SODIUM CHLORIDE 0.9% IVPB SCH (10:00)
== END 2018-06-29 13:49 | disposition home or self-care (01) ==
LOC: ONC/OP 08:28
PROVIDERS: ATTEND Internal Medicine Hematology & Oncology
DX: Z51.11 Encounter for antineoplastic chemotherapy (principal); C32.0 Malignant neoplasm of glottis; I10 Essential (primary) hypertension; Z87.891 Personal history of nicotine dependence; Z79.899 Other long term (current) drug therapy
CPT/HCPCS: 96375; 96413; 96417; J1100; J1642; J2405; J7050; J9045; J9267

== ENCOUNTER 2018-07-13 09:07 | Day surgery (SDC) | payer OTHER ==
[~2018-07-13 09:07] MED LIST changes: -Dexamethasone 10 MG in Sodium Chloride 0.9% 50 ML IVPB SCH; -Ondansetron 2MG/ML MDV 10 MG in Sodium Chloride 0.9% 50 ML IVPB SCH; +Ondansetron 2MG/ML MDV 10 MG, Dexamethasone 10 MG in Sodium Chloride 0.9% 50 ML IVPB SCH
[2018-07-13] MEDS ORDERED: Sodium Chloride 0.9% 20 ML ONE (09:22)
[2018-07-13 14:19] VITALS: BP 143/72; TEMP 98.2
== END 2018-07-13 14:18 | disposition home or self-care (01) ==
LOC: ONC/OP 09:07
PROVIDERS: ATTEND Internal Medicine Hematology & Oncology
DX: Z51.11 Encounter for antineoplastic chemotherapy (principal); C32.0 Malignant neoplasm of glottis
CPT/HCPCS: 96375; 96413; 96417; J1100; J1642; J2405; J7050; J9045; J9267

== ENCOUNTER 2018-07-27 08:14 | Day surgery (SDC) | payer SELFPAY ==
[2018-07-27] MEDS ORDERED: Sodium Chloride 0.9% 20 ML ONE (08:20)
[2018-07-27 12:43] VITALS: BP 149/70; TEMP 98.3
== END 2018-07-27 17:40 | disposition home or self-care (01) ==
LOC: ONC/OP 08:14
PROVIDERS: ATTEND Internal Medicine Hematology & Oncology
DX: Z51.11 Encounter for antineoplastic chemotherapy (principal); C32.0 Malignant neoplasm of glottis
CPT/HCPCS: 96375; 96413; 96417; J1100; J1642; J2405; J7050; J9045; J9267

== ENCOUNTER 2018-08-10 08:12 | Day surgery (SDC) | payer SELFPAY ==
[2018-08-10] MEDS ORDERED: Sodium Chloride 0.9% 20 ML ONE (08:33)
[2018-08-10 09:50] VITALS: BP 140/80; TEMP 98.1
== END 2018-08-10 14:27 | disposition home or self-care (01) ==
LOC: ONC/OP 08:12
PROVIDERS: ATTEND Internal Medicine Hematology & Oncology
DX: Z51.11 Encounter for antineoplastic chemotherapy (principal); C32.0 Malignant neoplasm of glottis; Z79.899 Other long term (current) drug therapy
CPT/HCPCS: 96375; 96413; 96417; J1100; J1642; J2405; J7050; J9045; J9267

== ENCOUNTER 2018-08-21 08:35 | Outpatient (CLI) | payer OTHER ==
[2018-08-21] MEDS ORDERED: Iopamidol 370 76% 100 ML VIAL ONE (09:00)
--- NOTE | 2018-08-21 09:29 | CT ---
CT Chest W Con History: [C 32.0 malignant neoplasm of larynx, overlapping sites.] Comparison: CT chest May 14, 2018 Findings: Interval size increase of the left upper lobe mass. Mass measures up to 6.2 cm in greatest dimension, the transverse dimension, and 5.5 cm in AP dimension, previously measured at 3.7 cm. There is extension to the left hilum. Similar appearance of the right upper lobe nodule has not increased in size as well measuring approxi mately 7 mm. Focal area of scarring in the superior segment right lower lobe. No new suspicious pulmonary nodule. Tracheostomy tube is in place. Paratracheal lymph nodes are similar. No new adenopathy. Limited evaluation of the upper abdomen is unremarkable. Adrenal glands are unremarkable. Old left anterior sixth and seventh rib fractures. Healing left posterior eighth rib fracture as well as old left lateral ninth rib fracture and healing left posterior 10th rib fractures. Impression: Size increased left upper lobe mass as described. No other new suspicious pulmonary nodul es.
== END 2018-08-21 08:36 | disposition home or self-care (01) ==
LOC: SCSCT 08:35
PROVIDERS: ATTEND Internal Medicine Hematology & Oncology
DX: C32.8 Malignant neoplasm of overlapping sites of larynx (principal); R91.8 Other nonspecific abnormal finding of lung field
CPT/HCPCS: 71260; Q9967

== ENCOUNTER 2018-09-23 06:07 | Day surgery (SDC) | payer MEDICARE ==
[2018-09-21 11:04] VITALS: BMI 31.8
--- NOTE | 2018-09-22 15:43 | HP ---
This is a history and physical for bronchoscopy tomorrow. HISTORY OF PRESENT ILLNESS: Mr. Hernández is a very pleasant gentleman who has had neck cancer. I have seen him in the past for lung mass. Bronchoscopy did not give us a tissue diagnosis. The small lesion had an SUV of 10. It was felt to be either a lung primary or solitary metastasis. He was referred for radiation and chemotherapy. Everything has been fairly well controlled now for over 3 years. This nodule in his left upper lobe has now over a 3-month period almost doubled in size. He is referred back for further evaluation and consideration for repeat bronchoscopy. PAST MEDICAL HISTORY: Remarkable for, 1. Tracheostomy for his head and neck cancer. 2. History of MediPort surgery. 3. History of right shoulder surgery. 4. History of hypertension. 5. Lipid disorder. FAMILY HISTORY: Negative for lung disease in early age. REVIEW OF SYSTEMS: Otherwise negative. PHYSICAL EXAMINATION: VITAL SIGNS: In the office, his pulse is 80, respiratory rate is 18, oximetry is 96% on room air. HEENT: Pupils are equal. Sclerae are anicteric. NECK: Supple. He has tracheostomy in place. This is a #6 Shiley without cuff. LUNGS: Clear. HEART: Regular rhythm. S1 and S2 are normal. ABDOMEN: Soft and nontender. EXTREMITIES: Without clubbing, cyanosis, or edema. NEURO: Nonfocal. IMPRESSION AND PLAN: Lung mass, likely malignant. It is unclear whether this is a lung primary or now a metastatic focus that is enlarging. Hopefully, we can see something endobronchially that we can biopsy. He may have an endobronchial abnormality on his CT in his left upper lobe bronchus. Risk of bleeding, infection, lung collapse, and least likely was explained to the patient. Job ID: [id number]
[2018-09-23] MEDS ORDERED: Sodium Chloride 0.9% 1,000 ML IV SCH (07:00)
[2018-09-23] MEDS ORDERED: Lidocaine 4% PF 5 ML AMP NEB SCH (07:00)
[2018-09-23] MEDS ORDERED: Lidocaine 1% (PF) 30 ML VIAL ONE (07:19)
[2018-09-23] MEDS ORDERED: Fentanyl 100 MCG/2 ML VIAL ONE (07:19)
[2018-09-23] MEDS ORDERED: Midazolam HCl 2 mg/2 ml Vial ONE (07:19)
[2018-09-23] MEDS ORDERED: methylPREDNISolone Sod Succ/PF 125 MG/2 ML VIAL ONE ×2 (08:50→08:54)
[2018-09-23] MEDS ORDERED: Sodium Chloride 0.9% 10 ML ONE (09:42)
--- NOTE | 2018-09-24 12:54 | OP ---
DATE OF PROCEDURE: 09/23/2018 PROCEDURE PERFORMED: Bronchoscopy. INDICATION: Enlarging left upper lobe mass. DESCRIPTION OF PROCEDURE: The patient was taken to Endoscopy. Consent forms were signed. The patient was identified. The scope was introduced after he was sedated with Versed and fentanyl through his #6 tracheostomy with the inner cannula removed. Lidocaine was used to topically anesthetize the tracheobronchial tree. The left upper lobe bronchus was friable, but no endobronchial lesions were seen. Under fluoroscopy, the brush was passed into the left upper lobe. There was minimal bleeding. Remainder of the tracheobronchial tree, both the left and right lung were inspected and were unremarkable. Specimens sent for just cytology. I have discussed the above with Dr. Garcia. I am sure this is a malignancy, but whether it is a long primary or recurrent head and neck cancer is unclear at this point. Job ID: [id number]
== END 2018-09-23 12:20 | disposition home or self-care (01) ==
LOC: SDC 06:07
PROVIDERS: ATTEND Internal Medicine Critical Care Medicine
PROC: 0BDG8ZX Extraction of Left Upper Lung Lobe, Via Natural or Artificial Opening Endoscopic, Diagnostic (ICD-10-PCS; principal; 2018-09-23)
DX: C34.12 Malignant neoplasm of upper lobe, left bronchus or lung (principal); I10 Essential (primary) hypertension; K21.9 Gastro-esophageal reflux disease without esophagitis; F10.11 Alcohol abuse, in remission; Z85.818 Personal history of malignant neoplasm of other sites of lip, oral cavity, and pharynx; Z87.891 Personal history of nicotine dependence; Z79.899 Other long term (current) drug therapy; Z93.0 Tracheostomy status; Z98.890 Other specified postprocedural states
CPT/HCPCS: 76000; 88112; 88305; 88341; 88342; 99152; 99153; J1642; J2001; J2250; J2930; J3010; J7620

== ENCOUNTER 2018-11-23 08:59 | Day surgery (SDC) | payer MEDICARE ==
[2018-11-20 13:55] VITALS: BMI 30.4
[~2018-11-23 08:59] MED LIST changes: -CARBOPLATIN IVPB SCH; -Ondansetron 2MG/ML MDV 10 MG, Dexamethasone 10 MG in Sodium Chloride 0.9% 50 ML IVPB SCH; -PACLitaxel 150 MG in Sodium Chloride 0.9% 250 ML 250 ML IVPB SCH; +Prevnar 13-Val Conj/PF 0.5 ML SYRINGE IM ONE; -SODIUM CHLORIDE 0.9% IVPB SCH
[2018-11-23 09:29] LABS: #Basophils 0.4 thou/uL (0.0-0.2); #Eosinphils 1.5 thou/uL (0.0-0.7); #Lymphocytes 0.6 thou/uL (1.20-3.40); #Monocytes 1.3 thou/uL (0.11-0.59); #Neutrophils 12.6 thou/uL (1.40-6.50); %Basophils 2.6 % (0.0-1.0); %Eosinophils 8.9 % (0.0-10.0); %Lymphocytes 3.8 % (21.0-51.0); %Monocytes 7.9 % (0.0-10.0); %Neutrophils 76.9 % (42.0-75.0); Hemoglobin 14.1 g/dL (14.0-18.0); Mean Corpuscular HGB CONC 33.8 g/dL (32.0-36.0); Mean Corpuscular Hemoglobin 34.2 pg (27.0-31.0); Mean Platelet Volume 6.4 fL (7.4-10.4); Platelet Count 453 thou/uL (130-400); RBC Distribution Width 12.7 % (11.5-14.5); Red Blood Cell (RBC) Count 4.13 mill/uL (4.70-6.10); White Blood Cell (WBC) Count 16.4 thou/uL (4.8-10.8)
[2018-11-23 09:31] LABS: PTT 28.4 SEC (22.9-36.1); Prothrombin Time 13.5 SEC (12.0-14.7)
[2018-11-23] MEDS ORDERED: Sodium Chloride 0.9% 10 ML ONE (10:25)
[2018-11-23] MEDS ORDERED: Sodium Bicarbonate 2.5 MEQ/5 ML VIAL ONE (10:25)
[2018-11-23 14:16] VITALS: BP 121/75; TEMP 98
--- NOTE | 2018-11-23 14:34 | RAD ---
INSPIRATORY AND EXPIRATORY POSTPROCEDURAL CHEST RADIOGRAPH: CLINICAL HISTORY: Status post percutaneous CT-guided biopsy of left upper lobe mass. FINDINGS: Large mass known within the patient's left upper lung zone produces correlative radiographic density. There is no significant postprocedural pneumothorax. Tracheostomy and right chest port are in place. IMPRESSION: Status post percutaneous, CT-guided biopsy of left upper lobe mass, without evidence of significant, postprocedural pneumothorax. Transcribed Date/Time: 11/23/2018 2:39 PM
--- NOTE | 2018-11-23 14:35 | CT ---
CT Lung Perc Biopsy CT GUIDED LEFT PULMONARY MASS BIOPSY: CLINICAL HISTORY: Left pulmonary mass. PROCEDURE: Informed consent was obtained and the patient was escorted to the procedural suite, placed in prone p osition. Conscious sedation for a total of 45 minutes was performed, administered by the radiology nurse, with the patient consistently monitored throughout the duration of the exam in stable conditio n. The patient's skin was prepped and draped in a standard sterile fashion and topical anesthesia with buffered 1% lidocaine was performed. After a small skin incision was made, an 20-gauge needle we re advanced to the leading edge of the left upper lobe pulmonary mass. After adequate placement was confirmed with CT fluoroscopic imaging, 2 subsequent core specimens were obtained via percutaneous bi opsy. These were confirmed with CT fluoroscopic imaging and the specimens were submitted to the pathologist for adequacy. Specimens were deemed adequate for interpretation. Therefore, all devices w ere then removed from the patient. No unexpected procedural complications were present. The patient was monitored in radiology holding i n stable condition prior to discharge with family member. IMPRESSION: Technically successful percutaneous biopsy of left upper lobe mass biopsy. Pathology results are pending.
--- NOTE | 2018-11-25 12:17 | CT ---
CT Lung Perc Biopsy CT GUIDED LEFT PULMONARY MASS BIOPSY: CLINICAL HISTORY: Left pulmonary mass. PROCEDURE: Informed consent was obtained and the patient was escorted to the procedural suite, placed in prone p osition. The patient's skin was prepped and draped in a standard sterile fashion and topical anesthesia with buffered 1% lidocaine was performed. After a small skin incision was made, an 20-gaug e needle were advanced to the leading edge of the left upper lobe pulmonary mass. After adequate placement was confirmed with CT fluoroscopic imaging, 2 subsequent core specimens were obtained via p ercutaneous biopsy. These were confirmed with CT fluoroscopic imaging and the specimens were submitted to the pathologist for adequacy. Specimens were deemed adequate for interpretation. Therefo re, all devices were then removed from the patient. No unexpected procedural complications were present. The patient was monitored in radiology holding i n stable condition prior to discharge with family member. IMPRESSION: Technically successful percutaneous biopsy of left upper lobe mass. Pathology results are pending. Transcribed Date/Time: 11/25/2018 12:16 PM
== END 2018-11-23 13:55 | disposition home or self-care (01) ==
LOC: CT 08:59
PROVIDERS: ATTEND Internal Medicine Hematology & Oncology
PROC: 0B9G3ZX Drainage of Left Upper Lung Lobe, Percutaneous Approach, Diagnostic (ICD-10-PCS; principal; 2018-11-23)
DX: C34.12 Malignant neoplasm of upper lobe, left bronchus or lung (principal); C32.0 Malignant neoplasm of glottis; E78.5 Hyperlipidemia, unspecified; I10 Essential (primary) hypertension; K21.9 Gastro-esophageal reflux disease without esophagitis; Z87.891 Personal history of nicotine dependence; Z79.899 Other long term (current) drug therapy
CPT/HCPCS: 32405; 36415; 71045; 77012; 85025; 85610; 85730; 88305; 88333; J1642

== ENCOUNTER 2018-12-09 07:44 | Outpatient (CLI) | payer MEDICARE ==
[2018-12-09] MEDS ORDERED: Iopamidol 370 76% 100 ML VIAL ONE (09:00)
--- NOTE | 2018-12-09 12:37 | CT ---
CT OF NECK SOFT TISSUE WITH CONTRAST: 12/09/18 INDICATION: Neoplasm, follow-up. COMPARISON: 07/07/15. FINDINGS: Indwelling tracheostomy is in place. There is diffuse mucosal prominence which involves the posterior nasopharynx, oropharynx, hypopharynx, and supraglottic larynx. Mild soft tissue prominence of the vo elina cords is also present. Thickening of the platysma is present, slightly more pronounced on the rig ht. There is reticulation of subcutaneous fat involving the neck ventrally. Scattered lymph nodes are seen with surrounding inflammatory fat stranding involving the neck bilaterally, non-specific. Withi n the imaged mediastinum, there are multiple necrotic lymph nodes, indicative of malignancy. There is a large necrotic mass visualized within the portions of the upper lobe of the left lung with associa mark pleural fluid, incompletely visualized. Numerous metastatic pulmonary nodules are present bilater ally within the lung apices. Nonspecific left periparotid lymph node formation. No obvious abnormalit y of the right parotid bland. Nodularity anterior to the right submandibular gland could relate to mi ldly prominent submandibular lymph node. IMPRESSION: 1. Diffuse abnormal mucosal prominence throughout the nasopharynx, oropharynx, hypopharynx and t o the level of the supraglottic larynx with mild mucosa prominence of the glottis as well. This could relate, at least in part, to post treatment therapy, although a diffuse spread of neoplasm and/or kirk[place] perimposition of multifocal neoplasm is not excluded. 2. Inflammatory stranding of the neck bilaterally with interspersed nonspecific lymph nodes. 3. Numerous metastatic upper mediastinal/base of neck lymph nodes as well as partially imaged ne crotic left upper lobe malignancy and numerous metastatic pulmonary nodules. Partially visualized lef t pleural fluid may also be malignant in etiology. POS: [facility]
--- NOTE | 2018-12-09 12:40 | CT ---
Exam: Chest CT scan with IV contrast: HISTORY: Malignant neoplasm larynx COMPARISON: 08/21/2018 FINDINGS: Huge poorly circumscribed mass in the left upper lobe measuring 5.8 x 6.9 cm showing marked increase in size from prior study at which time was approximately 4 x 5 cm. Developing left pleural effusion. Developing and enlarging mediastinal lymph nodes including a prevascular node now measuring 1.1 cm where it previously measured 0.5 cm and a right paratracheal node now measuring 1.3 cm where it previously measured 0.6 cm. Numerous other nodes up to 1 cm have developed since the prior s tudy. Marked narrowing of the right upper lobe bronchus. Numerous developing bilateral pulmonary metastasis up to 1.8 x 2.5 cm in the right side. No liver metastasis. The gallbladder pancreas spleen adrenal glands are unremarkable. Severe T11 vertebral body collapse with marked retropulsion and severe spinal canal stenosis new from prior study concerning for pathologic burst fracture. IMPRESSION: Marked enlargement of the left upper lobe mass now with marked narrowing of the right upper lobe bron chus and some associated atelectasis. Developing left pleural effusion. Extensive developing mediastinal adenopathy. Extensive bilateral pulmonary metastasis. New pathologic burst fracture of T11.
== END 2018-12-09 07:45 | disposition home or self-care (01) ==
LOC: SCSCT 07:44
PROVIDERS: ATTEND Internal Medicine Hematology & Oncology
DX: C32.8 Malignant neoplasm of overlapping sites of larynx (principal); M84.48XA Pathological fracture, other site, initial encounter for fracture; J90 Pleural effusion, not elsewhere classified; R59.0 Localized enlarged lymph nodes; R91.8 Other nonspecific abnormal finding of lung field; I88.9 Nonspecific lymphadenitis, unspecified
CPT/HCPCS: 70491; 71260; Q9967

== ENCOUNTER 2018-12-16 13:46 | Outpatient (CLI) | payer MEDICARE, OTHER ==
--- NOTE | 2018-12-16 17:49 | MRI ---
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 FINDINGS: Burst fracture of the T11 vertebra with retropulsion is noted. There is abnormal signal in the T10 vertebra posteriorly indicating metastatic involvement. Focus of abnormal signal of the T12 vertebra consistent with metastatic lesion. Possible metastatic lesion kaylyn ng the inferior end plate of L2. Possible involvement of the anterior aspect of the L3 and focal lesi on in the mid body of L4. Probable involvement of the posterior aspect of L5. Abnormal signal in the S1 and proximal S2 vertebra which are only partially imaged. The retropulsed portion of T11 compresses the thecal sac resulting in moderate to severe central tracey l stenosis. At T12-L1, no significant disc bulge or protrusion. At L1-2, mild disc bulge flattens the thecal sac. No central canal stenosis. At L2-3, mild disc bulge flattens the thecal sac resulting in mild central canal stenosis. At L3-4, mild disc bulge flattens the thecal sac with mild facet arthrosis. Mild central canal stenos is. At L4-5, minimal disc bulge. No central canal stenosis. At L5-S1, there is a grade I anterolisthesis with degenerative disc change. Posterior spondylolysis. Broad based bulge abuts the thecal sac. There is no central canal stenosis; however, there is bilater al foraminal stenosis secondary to the listhesis and the diffuse disc bulge which appears to contact both exiting L5 nerve roots. IMPRESSION: 1. Burst fracture T11 with retropulsion into the spinal canal compressing the conus. 2. Signal abnormality at numerous vertebral bodies consistent with metastatic involvement as alka cribed above. 3. Anterolisthesis with posterior spondylolysis at L5-S1 with bilateral foraminal stenosis as de scribed above. POS: [facility]
--- NOTE | 2018-12-16 17:56 | MRI ---
MRI THORACIC SPINE WITH AND WITHOUT CONTRAST: 12/16/18 INDICATIONS: Laryngeal cancer. Bone metastasis. FINDINGS: Burst fracture at T11 with retropulsion is seen as described on MRI of the lumbar spine. This is con sistent with a pathologic fracture from bone metastases. There is compression of the conus with moder ately severe central canal stenosis due to the retropulsion. Abnormal signal is seen in multiple thoracic vertebrae. There is evidence of metastatic involvement i nvolving T5, T6, T7, T8, T9, T10 and T12 vertebrae. Posterior element involvement is seen at multiple levels particularly noted at T7, T8, T9, T10, T11 and T12. Mild disc bulges at several thoracic levels mildly effaces the anterior subarachnoid space but does n ot produce cord impingement. These bulges are seen at T6-T7, T7-T8, T8-T9. Cord signal appears normally maintained. IMPRESSION: 1. Burst fracture at T11 with retropulsion compressing the conus and resulting in moderately sev ere central canal stenosis. Abnormal signal within this vertebral body including the posterior elemen ts consistent with pathologic fracture secondary to vertebral body metastasis. 2. Signal abnormalities at multiple other thoracic vertebrae consistent with metastatic involvem ent as described above. POS: [facility]
== END 2018-12-16 13:47 | disposition home or self-care (01) ==
LOC: SCSMRI 13:46
PROVIDERS: ATTEND Radiology Radiation Oncology
DX: C79.51 Secondary malignant neoplasm of bone (principal); C34.12 Malignant neoplasm of upper lobe, left bronchus or lung; C32.0 Malignant neoplasm of glottis; S22.081A Stable burst fracture of T11-T12 vertebra, initial encounter for closed fracture; M43.17 Spondylolisthesis, lumbosacral region; M43.07 Spondylolysis, lumbosacral region
CPT/HCPCS: 72157; 72158

== ENCOUNTER 2018-12-17 13:22 | Inpatient (IN) | payer MEDICARE, OTHER ==
[2018-12-17 14:10] LABS: Mean Corpuscular HGB CONC 32.3 g/dL (32.0-36.0); Mean Corpuscular Hemoglobin 32.8 pg (27.0-31.0); Mean Platelet Volume 6.1 fL (7.4-10.4); Platelet Count 367 thou/uL (130-400); RBC Distribution Width 12.9 % (11.5-14.5); Red Blood Cell (RBC) Count 3.98 mill/uL (4.70-6.10); White Blood Cell (WBC) Count 20.6 thou/uL (4.8-10.8)
[2018-12-17 14:15] LABS: PTT 25.2 SEC (22.9-36.1); Prothrombin Time 12.9 SEC (12.0-14.7)
[2018-12-17 14:28] LABS: Band 29 % (5-11); Eosinophils 5 % (0-10); Lymphocytes 3 % (21-51); MDiff Complete? YES; Metamyelocyte 2 % (0-0); Monocytes 2 % (0-10); Neutrophil 58 % (42-75); Platelet Morphology Comment Appears Adequate; Reactive Lymphocytes 1 % (0-10)
[2018-12-17 14:29] LABS: ALT (SGPT) 10 U/L (8-55); AST (SGOT) 20 U/L (5-34); Albumin 3.7 g/dL (3.4-4.8); Alkaline Phosphatase 86 U/L (40-150); Anion Gap 20 mmol/L (10-20); BUN (Urea Nitrogen) 9 mg/dL (8.4-25.7); Bilirubin, Total 0.4 mg/dL (0.2-1.2); CK (CPK) 67 U/L (30-200); Calc. Creatinine Clearance 0 mL/min (70-130); Calcium 8.5 mg/dL (7.8-10.44); Carbon Dioxide 22 mmol/L (23-31); Chloride 87 mmol/L (98-107); Estimated GFR-MDRD Greater than 90; Globulin 2.9 g/dL (2.4-3.5); Glucose 102 mg/dL (80-115); Potassium 4.5 mmol/L (3.5-5.1); Protein, Total 6.6 g/dL (5.8-8.1); Sodium 124 mmol/L (136-145)
--- NOTE | 2018-12-17 14:29 | RAD ---
EXAM: CHEST ONE VIEW HISTORY: Cough bleeding from tracheostomy. Shortness of breath and productive cough. COMPARISON: 11/23/2018 FINDINGS: Tracheostomy device and right subclavian Mediport catheter remain in place and unchanged in position. Large mass in the left upper lobe is again seen. Slightly greater increased density is seen at the medial left lung base which could be related to pleural fluid layering posteriorly. A few tiny nodula r densities are seen in the right upper lung zone with a larger nodular density seen in the right infrahilar region at the medial right lung base. No consolidation or pleural fluid is seen on the rig ht. There is right glenohumeral osteoarthropathy. There are calcific densities seen overlying the glenohu meral joints bilaterally suggesting intra-articular loose bodies. Remote left-sided rib fractures are again seen. IMPRESSION: 1. Persistent masslike opacity in the left upper lobe related to patient's known large left upper lob e mass. There is slightly greater hazy density at the medial left lung base which may related to increase in pleural fluid and associated atelectasis. This cannot be further evaluated on this exam. 2. Scattered pulmonary nodules right lung.
[2018-12-17] MEDS ORDERED: traMADol HCl 50 MG TAB ONE (15:04)
[2018-12-17] MEDS ORDERED: Piperacillin/Tazobactam 4.5 GM VIAL ONE (15:14)
[2018-12-17] MEDS ORDERED: Dexamethasone 10 MG/ML VIAL ONE (16:27)
[2018-12-17] MEDS ORDERED: Morphine 4 MG/ML VIAL ONE (16:45)
[2018-12-17] MEDS ORDERED: Acetaminophen 650 MG Suppository PR PRN (17:28)
[2018-12-17] MEDS ORDERED: Bisacodyl 5 MG TAB PO PRN (17:28)
[2018-12-17] MEDS ORDERED: Ondansetron PF 4 MG/2 ML Vial IVP PRN (17:28)
[2018-12-17] MEDS ORDERED: Acetaminophen 325 MG TAB PO PRN (17:28)
--- NOTE | 2018-12-17 18:12 | PDOC.FMACP ---
Advance Care Planning - Problem (1) Stage 4 lung cancer Status: Acute Code(s): C34.90 - MALIGNANT NEOPLASM OF UNSP PART OF UNSP BRONCHUS OR LUNG (2) Sepsis Status: Acute Code(s): A41.9 - SEPSIS, UNSPECIFIED ORGANISM (3) Pneumonia Status: Acute Code(s): J18.9 - PNEUMONIA, UNSPECIFIED ORGANISM (4) Pathologic fracture Status: Acute Code(s): M84.40XA - PATHOLOGICAL FRACTURE, UNSP SITE, INIT ENCNTR FOR FRACTURE (5) Tracheostomy complication, unspecified Status: Acute Code(s): J95.00 - UNSPECIFIED TRACHEOSTOMY COMPLICATION (6) Oral bleeding Status: Acute Code(s): K13.79 - OTHER LESIONS OF ORAL MUCOSA (7) Back pain Status: Acute Code(s): M54.9 - DORSALGIA, UNSPECIFIED - Note Participants: patient, family Summary: Advanced Care Planning was discussed. The diagnosis, prognosis and goals of care were discussed. Appropriate forms and documentation to accomplish the goals of care were discussed. All questions were answered. The Palliative Care Team will be engaged to assist with completion of any outstanding forms that are needed. Long discussion was had with patient, , and family at bedside. Many questions asked, all answered in detail. Discussed all imaging reports. Unfortunately short term prognosis is guarded. Recommended less aggressive measures and discussed DNR and DNI. Patient and family want more time to decide but would like to keep him full code for now. They are interested in antibiotics and steroids for the lungs. Discussed pathologic fracture of the spine and offerred surgical consultation - they refused any invasive surgeries on the back at this time. No numbness/ tingling in the groin, no loss of bowl or bladder function. Patient chronically has trouble walking at baseline and some numbness in the feet - they state this has not worsened over the past several weeks. Discussed case with nurse practitioner and agree to plan Plan: Admit to IMCU Pulmonology consult, recommendations appreciated Oncology consult, recommendations appreciated Broad spectrum ABX IV steroids Duo nebs scheduled and PRN Blood Cx Sputum Cx IV fluids Hgb has not significantly dropped from recent lab and will continue to monitor WBC chronically elevated and was 19k on 12/08/18 Short term prognosis is guarded and less aggressive measures were discussed - they want time to think about it and would like to remain full code at this time GI PPX DVT PPX Time Spent (mins): 35
--- NOTE | 2018-12-17 19:22 | HP ---
PRIMARY CARE PHYSICIAN: Raul in [facility]. CHIEF COMPLAINT: Shortness of breath and bleeding from tracheostomy. HISTORY OF PRESENT ILLNESS: Mr. Hernández is a pleasant 63-year-old man, who came to the emergency room today to have some shortness of breath, productive cough, and bleeding from his trach. Evaluated in the emergency room. The patient was suctioned prior to arrival, the patient's breathing has improved. The patient reports that he has had a trach for the last five years, has bled in the past. reports that it has bled more than normal in the last 2 days. Reports that he has a cancer lesion in his mouth, which also bleeds and we believe some of that trickles down his throat and out his trach. The patient with lung cancer with metastasis. The patient had head and neck cancer and a tracheostomy was placed in 2013 and reports that he has been managing at home since 2014 and has not been hospitalized since that time. He has seen Dr. Ariza for brush bronchoscopies. The patient had a CT scan on December 09 of soft tissue of the neck, which showed diffuse abnormal soft tissue prominence throughout the pharynx and additionally nondescript heterogeneous soft tissue of the oral cavity and floor of the mouth, which is distorted by the patient's motion, but is also indistinct for regional musculature, may relate to an infiltrating mass extending to involve the anterior submental region and they described abnormally thickened platysma muscle. CT scan of the neck, they also noted numerous metastatic upper mediastinal base of the neck lymph nodes as well as partially imaged necrotic left upper lobe malignancy and numerous metastatic pulmonary nodules, partially visualized left pleural effusion and fluid may be malignant in etiology. On chest x-ray here, persistent masslike opacity in the left upper lobe related to the patient's known large left upper lobe mass, slightly greater hazy density in the medial left lung base, which may be related to increased pleural fluid and associated atelectasis. This cannot be further evaluated on this exam. Scattered pulmonary nodules right lung. The patient also had some MRIs of his spine on the of this month that shows a burst fracture of T11 with a possible metastatic lesion along the inferior endplate of L2 as well as T10, possible T11, and midbody of L4. The patient O2 saturations drop in the 80s on room air. The patient states that he lives in the 90% to 92% O2 saturation normally at home. He has had coughed up several small mucus plugs here and when he does this, he drops again in his O2 saturations. X-ray for concerning worsening of the atelectasis, possible pneumonia. ER consulted Dr. Ariza and Dr. Garcia, who stated that and admission for further management was requested. Vancomycin and Zosyn were given in the emergency room. Lab work shows a white blood cell count of 20.6; on 12/08/2018, it was 19.5; and on 11/23/2018, it was 16.4. Hemoglobin 13 and hematocrit 40.3. Sodium low at 124, potassium 4.5, chloride 87, carbon dioxide 22, BUN 9, creatinine 0.54, estimated GFR is greater than 90, and calcium 8.5. Liver enzymes are largely unremarkable. The patient will be admitted to IM for hypoxia, possible pneumonia, and further management. PAST MEDICAL/SURGICAL HISTORY: Remarkable for a tracheostomy for head and neck cancer, history of MediPort surgery, history of right shoulder surgery, history of hypertension, and lipid disorder. Abdominal surgery due to a stomach ulcer. SOCIAL HISTORY: The patient did smoke for 30 years. FAMILY HISTORY: Mother and brother of cancer. REVIEW OF SYSTEMS: The patient feels short of breath, increased work of breathing, bleeding around the mouth and through the trachea through the tracheostomy. Reports spinal pain due to metastases to the spine. Reports decreased appetite. Denies fever or chills. Decrease in ambulation due to the spinal metastases. PHYSICAL EXAMINATION: VITAL SIGNS: Blood pressure 146/82, pulse is 118, respirations 28, temperature is 98.4, and 100% on nonrebreather via the trach. CONSTITUTIONAL: The patient appears chronically ill. He is alert and oriented to person, place, and time. He is nontoxic appearing. HEENT: Head is atraumatic and normocephalic. Eyes, eyelids are normal to inspection. Pupils are equally round and reactive to light. ENT, mucous membranes are dry. He has some dried blood on the bottom lip. Tissue mass underneath his tongue. NECK: Normal range of motion. Has a tracheostomy in place. RESPIRATORY: Chest, mild respiratory distress. Tachypnea at approximately 25 to 28 breaths per minute. They are shallow. Diffuse rhonchi throughout the lungs, worse on the left. Decreased breath sounds at the bases and on the entire left side of his lung. Old port to right upper chest. Trachea is with mild amount of dried blood and mucus. CARDIOVASCULAR: Regular heart rate and rhythm. Heart sounds are normal. ABDOMEN: Distended. There is no tenderness. No guarding. No rebound. BACK: Normal inspection. Normal range of motion. EXTREMITIES: Upper extremities, normal inspection. Normal range of motion. Radial pulses are equal. Lower extremities, normal inspection. Normal range of motion. Pedal pulses equal bilaterally. NEURO: He is awake and alert. Follows commands. SKIN: Warm, dry, and normal in color. IMPRESSION AND PLAN: 1. Advanced lung cancer with metastases and hypoxia. We will admit to [facility]. Pulmonology consult and Oncology consult recommendations would be greatly appreciated. Broad-spectrum antibiotics will be started. IV steroids ordered. DuoNeb scheduled and p.r.n. Blood cultures and sputum cultures ordered. IV fluids, gentle hydration 75 mL per hour. Hemoglobin has not significantly dropped and we will continue to monitor. White blood cell count appears chronically elevated and we will monitor. Short-term prognosis is guarded. Dr. Salguero had a long conversation with the family about code status and this is documented. He is currently a full code. We have asked Palliative Care to consult about advance directives. 2. Gastrointestinal and deep venous thrombosis prophylaxis has been started. Plan discussed with Dr. Salguero, who agrees to plan. Please see his note. Hospital course depended on clinical findings. Job ID: [id number]
[2018-12-17] MEDS: Sodium Chloride 0.9% 1,000 ML IV SCH (20:53)
[2018-12-17] MEDS: methylPREDNISolone Sod Succ 40 MG VIAL IVP SCH (20:54)
[2018-12-17] MEDS: Morphine 2 MG/ML SYRINGE SLOW IVP PRN (21:11)
[2018-12-17] MEDS: Piperacillin/Tazobactam 4.5 GM in Sodium Chloride 0.9% 100 ML IVPB SCH (23:50)
[2018-12-18] MEDS: Vancomycin HCl 1 GM in Premix Bag 1 BAG IVPB SCH ×3 (00:36→15:51)
[2018-12-18] MEDS: methylPREDNISolone Sod Succ 40 MG VIAL IVP SCH ×5 (02:13→23:53)
[2018-12-18] MEDS: Piperacillin/Tazobactam 4.5 GM in Sodium Chloride 0.9% 100 ML IVPB SCH ×4 (05:48→23:53)
[2018-12-18 06:04] LABS: #Basophils 0.2 thou/uL (0.0-0.2); #Eosinphils 0.2 thou/uL (0.0-0.7); #Lymphocytes 0.3 thou/uL (1.20-3.40); #Monocytes 0.3 thou/uL (0.11-0.59); #Neutrophils 14.7 thou/uL (1.40-6.50); %Basophils 1.1 % (0.0-1.0); %Lymphocytes 2.2 % (21.0-51.0); %Neutrophils 93.8 % (42.0-75.0); Hemoglobin 12.2 g/dL (14.0-18.0); Mean Corpuscular HGB CONC 32.6 g/dL (32.0-36.0); Mean Corpuscular Hemoglobin 32.3 pg (27.0-31.0); Mean Corpuscular Volume 99.1 fL (78.0-98.0); Mean Platelet Volume 6.4 fL (7.4-10.4); Platelet Count 393 thou/uL (130-400); RBC Distribution Width 12.9 % (11.5-14.5); Red Blood Cell (RBC) Count 3.78 mill/uL (4.70-6.10); White Blood Cell (WBC) Count 15.7 thou/uL (4.8-10.8)
[2018-12-18] MEDS: Morphine 2 MG/ML SYRINGE SLOW IVP PRN ×4 (06:18→22:04)
[2018-12-18 06:37] LABS: ALT (SGPT) 9 U/L (8-55); AST (SGOT) 17 U/L (5-34); Albumin 3.2 g/dL (3.4-4.8); Alkaline Phosphatase 69 U/L (40-150); Anion Gap 15 mmol/L (10-20); BUN (Urea Nitrogen) 8 mg/dL (8.4-25.7); Bilirubin, Total 0.3 mg/dL (0.2-1.2); Calc. Creatinine Clearance 143 mL/min (70-130); Calcium 8.7 mg/dL (7.8-10.44); Carbon Dioxide 25 mmol/L (23-31); Chloride 93 mmol/L (98-107); Estimated GFR-MDRD Greater than 90; Globulin 3.2 g/dL (2.4-3.5); Glucose 123 mg/dL (80-115); Potassium 4.7 mmol/L (3.5-5.1); Protein, Total 6.4 g/dL (5.8-8.1); Sodium 128 mmol/L (136-145)
[2018-12-18] MEDS ORDERED: Prevnar 13-Val Conj/PF 0.5 ML SYRINGE IM ONE ×2 (09:00→10:00)
[2018-12-18] MEDS: Sodium Chloride 0.9% 1,000 ML IV SCH ×2 (09:00→12:45)
--- NOTE | 2018-12-18 13:52 | PDOC.HOSPP ---
- Subjective Subjective: Seen and examined. Clinically improved. Breathing much easier after starting antibiotics and steroids. No further oral bleeding, denies having any bloody output from trach since admission. Pain not controlled. Patient and family want to talk over options with oncology, palliative care, and wish to be FULL code at this time. They are open and receptive to talking about less aggressive measures though. I stressed to them the critical nature of the disease and stated that they should talk it over and make a decision on code status. - Objective Vital Signs & Weight: Vital Signs (12 hours) Temp Pulse Resp BP Pulse Ox 12/18/18 13:06 98 23 H 12/18/18 11:08 96.2 F L 12/18/18 08:00 96 12/18/18 07:21 96.2 F L 12/18/18 06:58 110 H 20 12/18/18 04:07 98.4 F 12/18/18 03:00 100 21 H 104/62 96 Weight Weight 184 lb 8 oz Most Recent Monitor Data Heart Rate from ECG 99 NIBP 104/74 NIBP BP-Mean 84 Respiration from ECG 23 SpO2 93 I&O: 12/17/18 12/18/18 12/19/18 06:59 06:59 06:59 Intake Total 950 240 Output Total 2100 350 Balance -1150 -110 Result Diagrams: 12/18/18 05:50 12/18/18 05:50 Hospitalist ROS - Review of Systems All other systems reviewed; all pertinent +/- noted in HPI/Subj - Medication Medications: Active Medications Generic Name Dose Route Start Last Admin Trade Name Freq PRN Reason Stop Dose Admin Albuterol/Ipratropium 3 ml 12/17/18 19:00 12/18/18 13:06 Duoneb NEB 3 ml [id number] ALANIS Administration Fentanyl 12 mcg 12/18/18 12:00 12/18/18 12:45 Duragesic TD 12 mcg Q3D ALANIS Administration Piperacillin Sod/Tazobactam 100 mls @ 200 mls/hr 12/17/18 23:59 12/18/18 12: 44 Sod 4.5 gm/ Sodium Chloride IVPB 100 mls Q6HR ALANIS Administration Vancomycin HCl 1 gm/ Device 200 mls @ 200 mls/hr 12/17/18 23:59 12/18/18 09: 01 IVPB 200 mls 0800,1600,2359 ALNAIS Administration Sodium Chloride 1,000 mls @ 50 mls/hr 12/18/18 11:59 12/18/18 12:45 Normal Saline 0.9% IV Not Given .Q20H ALANIS Methylprednisolone Sodium Succinate 40 mg 12/17/18 18:00 12/18/18 12:44 Solu-Medrol IVP 40 mg Q6HR ALANIS Administration Morphine Sulfate 2 mg 12/17/18 17:38 12/18/18 10:32 Morphine SLOW IVP 2 mg Q4H PRN Administration Moderate Pain (4-6) Sodium Chloride 10 ml 12/17/18 17:28 12/17/18 20:57 Flush - Normal Saline IVF 10 ml PRN PRN Administration Saline Flush - Exam General Appearance: NAD, awake alert Eye: anicteric sclera ENT: no oropharyngeal lesions, moist mucosa Neck: supple, symmetric, no lymphadenopathy Heart: RRR, no murmur, no gallops Respiratory: no rales, normal chest expansion, no tachypnea, rhonchi (improved from yesterday), wheezes (improved) Gastrointestinal: soft, non-tender, non-distended, no guarding, no rigidity Extremities: 1+ LE edema Skin: no lesions, no rashes Neurological: cranial nerve grossly intact, normal sensation to touch, speech deficit (Secondary to trach) Musculoskeletal: generalized weakness Psychiatric: normal affect, A&O x 3 Hosp A/P (1) Stage 4 lung cancer Code(s): C34.90 - MALIGNANT NEOPLASM OF UNSP PART OF UNSP BRONCHUS OR LUNG Status: Acute (2) Sepsis Code(s): A41.9 - SEPSIS, UNSPECIFIED ORGANISM Status: Acute (3) Pneumonia Code(s): J18.9 - PNEUMONIA, UNSPECIFIED ORGANISM Status: Acute (4) Pathologic fracture Code(s): M84.40XA - PATHOLOGICAL FRACTURE, UNSP SITE, INIT ENCNTR FOR FRACTURE Status: Acute (5) Tracheostomy complication, unspecified Code(s): J95.00 - UNSPECIFIED TRACHEOSTOMY COMPLICATION Status: Acute (6) Oral bleeding Code(s): K13.79 - OTHER LESIONS OF ORAL MUCOSA Status: Acute (7) Back pain Code(s): M54.9 - DORSALGIA, UNSPECIFIED Status: Acute (8) Hyponatremia Code(s): E87.1 - HYPO-OSMOLALITY AND HYPONATREMIA Status: Acute - Plan Plan: IMCU pulmonology/critical-care consultation, recommendations appreciated oncology consultation, recommendations appreciated out of care consultation, recommendations appreciated broad-spectrum antibiotics follow cultures De escalate to culture and sensitivity as able IV steroids do a nab scheduled and PRN IV fluids for hyponatremia, improving hemoglobin has not significantly dropped and no further bleeding from trach site short-term prognosis is guarded and less aggressive measures were again discussed at this time they would like to remain full code G.I. prophylaxis DVT prophylaxis
[2018-12-18 16:02] LABS: Vancomycin, Trough 15.9 ug/mL
--- NOTE | 2018-12-18 21:48 | CON ---
DATE OF CONSULTATION: REASON FOR CONSULTATION: Lung cancer. HISTORY OF PRESENT ILLNESS: Mr. 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 He had a right upper lobe mass in 2018 consistent with metastatic diseases and was treated with chemotherapy. He then developed a left upper lobe solitary mass in August. Tissue biopsy established diagnosis of squamous cell carcinoma. It was thought that this represents a second primary bronchogenic carcinoma. Immunohistochemical profile showed 90% positive PD-L1. The patient was to start Keytruda this week. Unfortunately, he developed shortness of breath, cough, and some bleeding from the trach. He presented to the emergency room for evaluation and was admitted for possible pneumonia. We were asked to see the patient regarding his cancer. PAST MEDICAL HISTORY: 1. Squamous cell carcinoma of the larynx. 2. Metastatic lesion in the left upper lobe, 2017. 3. Left upper lobe squamous cell carcinoma, 11/2018. 4. Yapht-gd-manog squamous cell carcinoma, HPV positive, 11/2018. 5. Esophageal reflux. 6. Hypercholesterol. 7. Hypertension. 8. Peptic ulcer disease. PAST SURGICAL HISTORY: 1. Tracheostomy. 2. PEG tube. 3. MediPort. 4. Bronchoscopy. 5. Multiple biopsies. ALLERGIES: NO KNOWN DRUG ALLERGIES. HOME MEDICATIONS: Amlodipine, atorvastatin, Pepcid, and Tylenol. FAMILY HISTORY: Brother of throat cancer at 62, he was a smoker. Mother had emphysema and lung cancer, she was also a smoker. SOCIAL HISTORY: , has 2 children. Lives with his spouse. [id number] history of smoking. Drinks heavily in the past. REVIEW OF SYSTEMS: CONSTITUTIONAL: No fever, chills, or night sweats. EYES: No blurred or double vision. ENT: No pain, hoarseness, sore throat, or dysphagia. CV: No chest pain, palpitations, or syncope. RESPIRATORY: No shortness of breath. Positive for cough, dyspnea on exertion. GI: No nausea, vomiting, diarrhea, constipation, or abdominal pain. : No dysuria or hematuria. MUSCULOSKELETAL: No joint or back pain. SKIN: No rash or pruritus. HEMATOLOGICAL: Positive for bleeding from trach. No bruising or clotting. NEUROLOGICAL: No weakness, headache, numbness, tingling, or seizure activities. PHYSICAL EXAMINATION: VITAL SIGNS: Temperature is 96.2, pulse is 98, respiratory rate 23, BP is 104/74. He is 93% on trach collar. GENERAL: This is a chronically ill-appearing male, in no acute distress. HEENT: Normocephalic, atraumatic. Pupils are equal and reactive to light. NECK: Supple. There is a trach in place. CV: Regular rate and rhythm. LUNGS: Rhonchi throughout. ABDOMEN: Soft and nontender. Bowel sounds are positive. EXTREMITIES: He has bilateral lower extremity swelling 1+. SKIN: There is no rash. HEMATOLOGICAL: There is no petechiae or purpura. NEUROLOGICAL: Nonfocal. The patient nods appropriately. PERTINENT LABORATORY AND X-RAYS: Current WBCs are 15.7, hemoglobin 12.2, hematocrit 37.5, platelet count 393,000. He has 93% neutrophils, 2% lymphocytes. PT is 12.9, INR is 1.0, PTT is 25.2. Sodium is 128, potassium 4.7, chloride 93, CO2 is 25, BUN is 8, creatinine is 0.61, calcium 8.7, bilirubin 0.3, AST 17, ALT is 9, alkaline phosphatase is 69, serum total protein is 6.4, albumin 3.4, globulin 3.4. ASSESSMENT: 1. Squamous cell carcinoma of the lung and floor of mouth. 2. Hypoxia. DISCUSSION: The patient's lung tumor is 90% positive for PD-L1, making him an excellent candidate for Keytruda. He was due to start his first dose today; however, he was admitted. This is the medication that cannot be administered in the inpatient setting per this hospital's policy. He may actually have a decent response to this. However, he still has the oral lesion that will need radiation at some point. We will recommend supportive care at this time and be discharged when he is more stable to follow up in our clinic and begin treatment. I do recommend that he is a DNR. There is no family at bedside to discuss this with further, I believe Palliative Care has been consulted. Thank you for consultation. We will follow his hospital course. Job ID: [id number]
[2018-12-19] MEDS: Vancomycin HCl 1 GM in Premix Bag 1 BAG IVPB SCH ×3 (00:41→15:29)
--- NOTE | 2018-12-19 00:54 | CON ---
DATE OF CONSULTATION: 12/18/2018 SERVICE: Pulmonary Medicine. HISTORY OF PRESENT ILLNESS: The patient is a 63-year-old white male with past medical history significant for head, neck cancer as well as lung cancer. He was in his usual state of health when roughly 2 to 3 months ago, he started having increasing difficulty in tolerating his [place] valve. He is also having increasing cough and congestion. He is bringing up more sputum than typical. He presented to the emergency department because of difficulty breathing. He is found to require more oxygen than he typically uses. In the emergency department, he was given nebulized medications, steroids, and antibiotics. He is being treated for healthcare associated pneumonia. He currently denies any fevers or chills. He is not having any sweats. He denies having orthopnea, paroxysmal nocturnal dyspnea. When he puts the [place] valve on, he cannot tolerate any air movement around it and it is a hard time breathing out. He says this happens intermittently from time to time. PAST MEDICAL HISTORY: 1. Squamous cell carcinoma of the head and neck under the tongue, not progressing into the posterior oropharynx based on what he tells me. That being said, it is very clear that based on most recent imaging, he has significant progression of disease in and around the posterior oropharynx, and trachea. 2. Head and neck cancer. 3. Hypertension. 4. Dyslipidemia. PAST SURGICAL HISTORY: 1. Tracheostomy. 2. Mediport surgery. 3. Right shoulder surgery. FAMILY HISTORY: Noncontributory. SOCIAL HISTORY: Currently negative for alcohol, tobacco, or illicit drug use. He lives with his . He has no exposure to chemicals, dust, asbestos, or tuberculosis currently. ALLERGIES: NO KNOWN DRUG ALLERGIES. MEDICATIONS: List of his inpatient medications was reviewed. No specific updates were made at this time. REVIEW OF SYSTEMS: General, head, ears, eyes, nose, throat, cardiovascular, respiratory, GI, , musculoskeletal, neurologic, and skin is negative except as mentioned in the HPI. PHYSICAL EXAMINATION: VITAL SIGNS: Afebrile, pulse 109, blood pressure 145/76, respirations 24, saturation 92%, currently on 6 L via T-collar. HEENT: Normocephalic, atraumatic. He has poor dentition. There is squamous cell carcinoma noted under the tongue. He also has a tracheostomy, which is in good position. HEENT: Normocephalic and atraumatic. Sclerae white. Conjunctivae pink. Oral mucosa is moist without lesions. LUNGS: Decent air entry. There is a prolonged expiratory phase. Wheezing and crackles. Crackles and actually wheezing and rhonchi are present. I do not appreciate any crackles. HEART: Normal rate. Regular. ABDOMEN: Soft, nontender, nondistended bowel sounds are positive. MUSCULOSKELETAL: No cyanosis or clubbing. No pitting in the bilateral lower extremities. NEUROLOGIC: Grossly nonfocal. LABORATORY DATA: WBC 15.7, hemoglobin 12.2, platelets 393,000. INR 1.0, sodium 128 and up trending. Basic metabolic profile and liver function studies are unremarkable. Vancomycin trough is 15.9. Blood cultures x2 are unremarkable. IMAGING: Chest x-ray demonstrates extensive bilateral metastatic changes. Likely pleural effusion, and some atelectasis is present. Multiple pulmonary nodules are present throughout bilateral lung gupta. ASSESSMENT: 1. Acute hypoxic respiratory failure. 2. Squamous cell carcinoma of the head and neck, status post tracheostomy. 3. Bronchogenic carcinoma of the lung, metastatic. 4. Chronic obstructive pulmonary disease with acute exacerbation. 5. Sepsis. 6. Dehydration, suspected. DISCUSSION AND PLAN: I agree with palliative care consultation. I am going to try to change his tracheostomy out to a cuffless 6.0 fenestrated device to see, if this allows for more air movement superiorly. If it does not, ENT consultation will be considered. The patient relates having progressive increasing difficulty in using his [place] valve over the past 3 months. Additionally, CT scan from a week ago suggested that he had progressing posterior oropharynx soft tissue changes. As such, I believe that this is in keeping with progressive head, neck cancer, if there is not something we can offer Mr. Hernández, this process will likely progress to the point where even tracheostomy will not hold his airway open. Pulmonary/Critical Care will follow along. He will need to remain in this location. 70 minutes have been devoted to this patient in various activities. I personally reviewed all imaging studies and laboratory data noted within this document. For fifty percent of this time, I was interacting with the patient at the bedside or coordinating care with the care team. For the remainder of the time I was immediately available to the patient in the hospital unit. Job ID: [id number] [facility]
[2018-12-19] MEDS: Morphine 2 MG/ML SYRINGE SLOW IVP PRN ×5 (02:49→21:57)
[2018-12-19] MEDS: Piperacillin/Tazobactam 4.5 GM in Sodium Chloride 0.9% 100 ML IVPB SCH ×4 (06:18→23:39)
[2018-12-19] MEDS: methylPREDNISolone Sod Succ 40 MG VIAL IVP SCH ×4 (06:19→23:39)
[2018-12-19 06:42] LABS: ALT (SGPT) 11 U/L (8-55); AST (SGOT) 10 U/L (5-34); Albumin 3.2 g/dL (3.4-4.8); Alkaline Phosphatase 61 U/L (40-150); Anion Gap 12 mmol/L (10-20); BUN (Urea Nitrogen) 10 mg/dL (8.4-25.7); Bilirubin, Total 0.3 mg/dL (0.2-1.2); Calc. Creatinine Clearance 150 mL/min (70-130); Calcium 8.4 mg/dL (7.8-10.44); Carbon Dioxide 27 mmol/L (23-31); Chloride 98 mmol/L (98-107); Estimated GFR-MDRD Greater than 90; Globulin 2.6 g/dL (2.4-3.5); Glucose 119 mg/dL (80-115); Potassium 3.2 mmol/L (3.5-5.1); Protein, Total 5.8 g/dL (5.8-8.1); Sodium 134 mmol/L (136-145)
[2018-12-19 07:47] LABS: Band 29 % (5-11); Hemoglobin 12.1 g/dL (14.0-18.0); Lymphocytes 3 % (21-51); MDiff Complete? YES; Mean Corpuscular HGB CONC 33.4 g/dL (32.0-36.0); Mean Corpuscular Hemoglobin 33.3 pg (27.0-31.0); Mean Corpuscular Volume 99.7 fL (78.0-98.0); Mean Platelet Volume 6.4 fL (7.4-10.4); Monocytes 3 % (0-10); Neutrophil 65 % (42-75); Platelet Count 427 thou/uL (130-400); Red Blood Cell (RBC) Count 3.62 mill/uL (4.70-6.10); Toxic Granulation SLIGHT; Vacuoles SLIGHT; White Blood Cell (WBC) Count 23.4 thou/uL (4.8-10.8)
[2018-12-19] MEDS: Sodium Chloride 0.9% 1,000 ML IV SCH (08:48)
--- NOTE | 2018-12-19 13:39 | EKG ---
Test Reason : Blood Pressure : / mmHG Vent. Rate : 121 BPM Atrial Rate : 121 BPM P-R Int : 146 ms QRS Dur : 088 ms QT Int : 318 ms P-R-T Axes : 057 050 -04 degrees QTc Int : 451 ms Sinus tachycardia Otherwise normal ECG Confirmed by ROSE MARIE SCHAEFER D.O. ([id number]), make up editor VIGNESH NYE ([id number]) on 12/19/2018 1:38:52 PM Referred By: Confirmed By:ROSE MARIE SCHAEFER D.O.
--- NOTE | 2018-12-19 14:35 | PDOC.HOSPP ---
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 Started on antibiotics and bronchodilators for sepsis and COPD exacerbation. Feeling better. Patient wants to eat by mouth knowing he can aspirate. - Objective Vital Signs & Weight: Vital Signs (12 hours) Temp Pulse Resp BP Pulse Ox 12/19/18 13:09 110 H 25 H 95 12/19/18 10:46 97.0 F L 12/19/18 08:00 98 12/19/18 07:07 97.8 F 12/19/18 06:55 95 12/19/18 06:46 98 24 H 95 12/19/18 04:00 98.6 F 91 21 H 124/79 95 Weight Admit Weight 184 lb 8 oz Weight 186 lb 3.2 oz Most Recent Monitor Data Heart Rate from ECG 112 NIBP 151/83 NIBP BP-Mean 105 Respiration from ECG 22 SpO2 95 I&O: 12/18/18 12/19/18 12/20/18 06:59 06:59 06:59 Intake Total 950 2202 Output Total 2100 1500 400 Balance -1150 702 -400 Result Diagrams: 12/19/18 05:55 12/19/18 05:54 Hospitalist ROS - Medication Medications: Active Medications Generic Name Dose Route Start Last Admin Trade Name Freq PRN Reason Stop Dose Admin Albuterol/Ipratropium 3 ml 12/17/18 19:00 12/19/18 13:09 Duoneb NEB 3 ml [id number] ALANIS Administration Fentanyl 12 mcg 12/18/18 12:00 12/18/18 12:45 Duragesic TD 12 mcg Q3D ALANIS Administration Piperacillin Sod/Tazobactam 100 mls @ 200 mls/hr 12/17/18 23:59 12/19/18 12: 53 Sod 4.5 gm/ Sodium Chloride IVPB 100 mls Q6HR ALANIS Administration Vancomycin HCl 1 gm/ Device 200 mls @ 200 mls/hr 12/17/18 23:59 12/19/18 08: 48 IVPB 200 mls 0800,1600,2359 ALANIS Administration Sodium Chloride 1,000 mls @ 50 mls/hr 12/18/18 11:59 12/19/18 08:48 Normal Saline 0.9% IV 1,000 mls .Q20H ALANIS Administration Methylprednisolone Sodium Succinate 40 mg 12/17/18 18:00 12/19/18 12:53 Solu-Medrol IVP 40 mg Q6HR ALANIS Administration Morphine Sulfate 2 mg 12/17/18 17:38 12/19/18 12:53 Morphine SLOW IVP 2 mg Q4H PRN Administration Moderate Pain (4-6) Sodium Chloride 10 ml 12/17/18 17:28 12/17/18 20:57 Flush - Normal Saline IVF 10 ml PRN PRN Administration Saline Flush - Exam General Appearance: awake alert Eye: anicteric sclera ENT: normocephalic atraumatic, moist mucosa Neck: no JVD Neck - other findings: Tracheostomy noted with T mask Heart: RRR, no murmur Respiratory - other findings: fair air entry with transmitted sound and scattered rhonchi Gastrointestinal: soft, non-tender, non-distended, normal bowel sounds Extremities: no cyanosis, no edema Neurological: cranial nerve grossly intact, no focal deficits Hosp A/P (1) COPD with acute exacerbation Code(s): J44.1 - CHRONIC OBSTRUCTIVE PULMONARY DISEASE W (ACUTE) EXACERBATION Status: Acute (2) Hypokalemia Code(s): E87.6 - HYPOKALEMIA Status: Acute (3) Acute respiratory failure with hypoxia Code(s): J96.01 - ACUTE RESPIRATORY FAILURE WITH HYPOXIA Status: Acute (4) Hyponatremia Code(s): E87.1 - HYPO-OSMOLALITY AND HYPONATREMIA Status: Acute (5) Pneumonia Code(s): J18.9 - PNEUMONIA, UNSPECIFIED ORGANISM Status: Acute (6) Sepsis Code(s): A41.9 - SEPSIS, UNSPECIFIED ORGANISM Status: Acute (7) Stage 4 lung cancer Code(s): C34.90 - MALIGNANT NEOPLASM OF UNSP PART OF UNSP BRONCHUS OR LUNG Status: Acute (8) Tracheostomy complication, unspecified Code(s): J95.00 - UNSPECIFIED TRACHEOSTOMY COMPLICATION Status: Acute (9) Tracheostomy care Code(s): Z43.0 - ENCOUNTER FOR ATTENTION TO TRACHEOSTOMY Status: Acute (10) Dehydration Code(s): E86.0 - DEHYDRATION Status: Acute - Plan Continue antibiotics and bronchodilators Repleted serum potassium Continue IVF and monitor renal function Trach collar to continue Will discuss code statusonce relative/spouse is arround. palliative care on the case. Start oral intake as tolerated in line with patients wishes
--- NOTE | 2018-12-19 15:13 | PRG ---
DATE OF SERVICE: 12/19/2018 SERVICE: Pulmonary Medicine. INTERVAL HISTORY: The patient is doing a little better today. He is breathing much more comfortably. He indicates that he can get a little bit more air movement above his tracheostomy. He denies any fevers or chills overnight. His sputum production is significantly improved. PHYSICAL EXAMINATION: VITAL SIGNS: Afebrile, pulse 103, blood pressure 137/79, respirations 39, and saturation 93% with T-collar. HEENT: Normocephalic and atraumatic. Sclerae are white. Conjunctivae are pink. Oral mucosa is moist without lesions. LUNGS: Rhonchi are present. There is a prolonged expiratory phase and some wheezing. HEART: Normal rate, regular. ABDOMEN: Soft, nontender, and nondistended. Bowel sounds are positive. MUSCULOSKELETAL: No cyanosis or clubbing. There is no pitting in bilateral lower extremities. NEUROLOGIC: Grossly nonfocal. LABORATORY DATA: WBC 23.4, hemoglobin 12.1, and platelets 427,000. INR 1.0. Sodium 134 and beautifully up-trending, potassium is 3.2. Basic metabolic profile and liver function studies are otherwise unremarkable. Blood cultures x2 are negative. ASSESSMENT: 1. Squamous cell carcinoma of the head and neck, status post tracheostomy. 2. Bronchogenic carcinoma of the lung, metastatic. 3. Chronic obstructive pulmonary disease with acute exacerbation. 4. Sepsis. 5. Healthcare-associated pneumonia, likely. 6. Dehydration, improving. DISCUSSION AND PLAN: I am going to replace his potassium. Otherwise, we will continue our antibiotics, steroids, and nebulized medications. Other general supportive care will be continued. He will need to remain in the IMCU until his air flow improved ever so slightly. Ultimately, what he needs most is for him to be discharged from the hospital. Once he is stable, so that he can pursue Keytruda therapy. The Keytruda will typically cause a little bit more swelling. Hopefully, the patient will be able to tolerate that change. Job ID: [id number] [facility]
[2018-12-20] MEDS: Vancomycin HCl 1 GM in Premix Bag 1 BAG IVPB SCH ×3 (00:43→17:03)
[2018-12-20] MEDS: Morphine 2 MG/ML SYRINGE SLOW IVP PRN ×5 (01:52→20:43)
[2018-12-20] MEDS: Sodium Chloride 0.9% 1,000 ML IV SCH (04:00)
[2018-12-20 05:27] LABS: Anion Gap 10 mmol/L (10-20); BUN (Urea Nitrogen) 11 mg/dL (8.4-25.7); Calc. Creatinine Clearance 128 mL/min (70-130); Calcium 8.3 mg/dL (7.8-10.44); Carbon Dioxide 31 mmol/L (23-31); Chloride 99 mmol/L (98-107); Estimated GFR-MDRD Greater than 90; Glucose 131 mg/dL (80-115); Magnesium 1.8 mg/dL (1.6-2.6); Potassium 3.4 mmol/L (3.5-5.1); Sodium 137 mmol/L (136-145)
[2018-12-20] MEDS: Piperacillin/Tazobactam 4.5 GM in Sodium Chloride 0.9% 100 ML IVPB SCH ×4 (05:43→23:09)
[2018-12-20] MEDS: methylPREDNISolone Sod Succ 40 MG VIAL IVP SCH ×4 (05:43→23:09)
[2018-12-20 06:30] LABS: Hemoglobin 12.2 g/dL (14.0-18.0); Mean Corpuscular HGB CONC 32.8 g/dL (32.0-36.0); Mean Corpuscular Hemoglobin 32.4 pg (27.0-31.0); Mean Corpuscular Volume 98.8 fL (78.0-98.0); Mean Platelet Volume 6.3 fL (7.4-10.4); Platelet Count 416 thou/uL (130-400); RBC Distribution Width 13.1 % (11.5-14.5); Red Blood Cell (RBC) Count 3.76 mill/uL (4.70-6.10); White Blood Cell (WBC) Count 30.7 thou/uL (4.8-10.8)
[2018-12-20 07:00] LABS: Band 24 % (5-11); Lymphocytes 2 % (21-51); MDiff Complete? YES; Monocytes 3 % (0-10); Neutrophil 71 % (42-75)
--- NOTE | 2018-12-20 13:21 | PDOC.HOSPP ---
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 Started on antibiotics and bronchodilators for sepsis and COPD exacerbation. Feeling better. Does not want PEG and wants to eat by mouth knowing he can aspirate. Still having severe back pain. No BM in the last 4 days - Objective Vital Signs & Weight: Vital Signs (12 hours) Temp Pulse Resp BP Pulse Ox 12/20/18 10:47 97.2 F L 12/20/18 08:00 96 12/20/18 07:07 97.0 F L 12/20/18 06:43 88 20 96 12/20/18 04:00 98.4 F 88 21 H 118/87 97 12/20/18 01:39 95 Weight Admit Weight 184 lb 8 oz Weight 183 lb 14.4 oz Most Recent Monitor Data Heart Rate from ECG 97 NIBP 124/85 NIBP BP-Mean 98 Respiration from ECG 21 SpO2 94 I&O: 12/19/18 12/20/18 12/21/18 06:59 06:59 06:59 Intake Total 2202 1760 237 Output Total 1500 1550 Balance 702 210 237 Result Diagrams: 12/20/18 06:05 12/20/18 05:00 Hospitalist ROS - Medication Medications: Active Medications Generic Name Dose Route Start Last Admin Trade Name Freq PRN Reason Stop Dose Admin Albuterol/Ipratropium 3 ml 12/17/18 19:00 12/20/18 06:43 Duoneb NEB 3 ml [id number] ALANIS Administration Fentanyl 12 mcg 12/18/18 12:00 12/18/18 12:45 Duragesic TD 12 mcg Q3D ALANIS Administration Piperacillin Sod/Tazobactam 100 mls @ 200 mls/hr 12/17/18 23:59 12/20/18 12: 00 Sod 4.5 gm/ Sodium Chloride IVPB 100 mls Q6HR ALANIS Administration Vancomycin HCl 1 gm/ Device 200 mls @ 200 mls/hr 12/17/18 23:59 12/20/18 08: 56 IVPB 200 mls 0800,1600,2359 ALANIS Administration Methylprednisolone Sodium Succinate 40 mg 12/17/18 18:00 12/20/18 12:00 Solu-Medrol IVP 40 mg Q6HR ALANIS Administration Morphine Sulfate 2 mg 12/17/18 17:38 12/20/18 10:18 Morphine SLOW IVP 2 mg Q4H PRN Administration Moderate Pain (4-6) Sodium Chloride 10 ml 12/17/18 17:28 12/17/18 20:57 Flush - Normal Saline IVF 10 ml PRN PRN Administration Saline Flush - Exam General Appearance: awake alert Eye: anicteric sclera ENT - other findings: Floor of mouth irregular mass noted extending around remaining teeth Neck - other findings: tracheostomy with trach collar noted Heart: RRR Respiratory - other findings: fair air entry bilaterally Gastrointestinal: soft, normal bowel sounds Extremities: no cyanosis, no edema Neurological: cranial nerve grossly intact Musculoskeletal: normal tone Psychiatric: A&O x 3 Hosp A/P (1) COPD with acute exacerbation Code(s): J44.1 - CHRONIC OBSTRUCTIVE PULMONARY DISEASE W (ACUTE) EXACERBATION Status: Acute (2) Hypokalemia Code(s): E87.6 - HYPOKALEMIA Status: Acute (3) Acute respiratory failure with hypoxia Code(s): J96.01 - ACUTE RESPIRATORY FAILURE WITH HYPOXIA Status: Acute (4) Hyponatremia Code(s): E87.1 - HYPO-OSMOLALITY AND HYPONATREMIA Status: Acute (5) Pneumonia Code(s): J18.9 - PNEUMONIA, UNSPECIFIED ORGANISM Status: Acute (6) Sepsis Code(s): A41.9 - SEPSIS, UNSPECIFIED ORGANISM Status: Acute (7) Stage 4 lung cancer Code(s): C34.90 - MALIGNANT NEOPLASM OF UNSP PART OF UNSP BRONCHUS OR LUNG Status: Acute (8) Tracheostomy complication, unspecified Code(s): J95.00 - UNSPECIFIED TRACHEOSTOMY COMPLICATION Status: Acute (9) Tracheostomy care Code(s): Z43.0 - ENCOUNTER FOR ATTENTION TO TRACHEOSTOMY Status: Acute (10) Dehydration Code(s): E86.0 - DEHYDRATION Status: Acute (11) Cancer of floor of mouth Status: Acute (12) Constipation Code(s): K59.00 - CONSTIPATION, UNSPECIFIED Status: Acute (13) Back pain Code(s): M54.9 - DORSALGIA, UNSPECIFIED Status: Acute - Plan Continue antibiotics and bronchodilators Repleted serum potassium. Give 60 meq today. DC IVF. [place] oral intake advised. Increase ensure to 6 per day. Start lidocaine patch for back pain give dulcolax suppository and start bid miralax Trach collar to continue palliative care on the case.
[2018-12-20] MEDS ORDERED: Bisacodyl 10 MG SUPP PR SCH (13:30)
[2018-12-20] MEDS ORDERED: Magnesium 2 GM/50 ML 2 GM in Premix Bag 1 BAG IVPB SCH (14:45)
--- NOTE | 2018-12-20 14:50 | PRG ---
DATE OF SERVICE: 12/20/2018 SERVICE: Pulmonary Medicine. INTERVAL HISTORY: The patient is doing okay from respiratory standpoint. He feels that his breathing is about the same as yesterday as his sputum production. That being said, he is touch more tachypneic today. He seems to be more refreshed, and more engaging today. He does not seem to be as plethoric. PHYSICAL EXAMINATION: VITAL SIGNS: Afebrile, pulse 110, blood pressure 159/101, respirations 23, and saturation 95% on T-collar. GENERAL: The patient is awake and alert, in no apparent distress. LUNGS: There is decreased air entry. He has a hard time with an exhalation, particularly if the tracheostomy is occluded. Expiratory wheezing and prolonged expiratory phase is present. HEART: Normal rate. Regular. ABDOMEN: Soft, nontender, and nondistended. Bowel sounds are positive. MUSCULOSKELETAL: No cyanosis or clubbing. There is no pitting in the bilateral lower extremities. NEUROLOGIC: Grossly nonfocal. LABORATORY DATA: WBC 30.7 and uptrending, hemoglobin 12.2, platelets 416, and neutrophils are 71% on top of 20% bands. The band count seems to be dropping. Basic metabolic profile is unremarkable except for a potassium of 3.4. Magnesium 1.8. Blood cultures x2 are unremarkable. ASSESSMENT: 1. Squamous cell carcinoma of the head and neck causing significant partial occlusion of the hypopharynx. 2. Bronchogenic carcinoma of the lung, metastatic. 3. Sepsis without end-organ damage. 4. Healthcare-associated pneumonia, likely. 5. Chronic obstructive pulmonary disease with acute exacerbation. 6. Dehydration, resolving. DISCUSSION AND PLAN: We will replace his potassium and magnesium again today. I will put a lidocaine patch on the T11 fracture. Hopefully, this will provide him with significant relief. He will remain in the IM. Dr. Ariza will assume care in the morning as he has a well established relationship with [facility]. Ultimately, he will need to get out of the hospital as soon as possible so that he can pursue Keytruda therapy for his multiple cancer processes before his disease process progresses to a point of no return. Job ID: [id number] [facility]
[2018-12-20] MEDS: Lidocaine 5% Patch TD SCH (14:58)
[2018-12-20] MEDS: Polyethylene Glycol 3350 17 GM Packet PO SCH (20:44)
[2018-12-21] MEDS: Vancomycin HCl 1 GM in Premix Bag 1 BAG IVPB SCH ×2 (00:10→09:23)
[2018-12-21] MEDS: Morphine 2 MG/ML SYRINGE SLOW IVP PRN ×6 (00:35→17:53)
[2018-12-21 04:02] LABS: Anion Gap 15 mmol/L (10-20); BUN (Urea Nitrogen) 14 mg/dL (8.4-25.7); Calc. Creatinine Clearance 130 mL/min (70-130); Calcium 8.5 mg/dL (7.8-10.44); Carbon Dioxide 29 mmol/L (23-31); Chloride 98 mmol/L (98-107); Estimated GFR-MDRD Greater than 90; Glucose 139 mg/dL (80-115); Potassium 3.6 mmol/L (3.5-5.1); Sodium 138 mmol/L (136-145)
[2018-12-21 04:27] LABS: Band 26 % (5-11); Eosinophils 1 % (0-10); Hemoglobin 12.1 g/dL (14.0-18.0); Lymphocytes 2 % (21-51); MDiff Complete? YES; Mean Corpuscular HGB CONC 32.8 g/dL (32.0-36.0); Mean Corpuscular Hemoglobin 32.9 pg (27.0-31.0); Mean Platelet Volume 6.2 fL (7.4-10.4); Metamyelocyte 1 % (0-0); Monocytes 6 % (0-10); Neutrophil 64 % (42-75); Platelet Count 400 thou/uL (130-400); RBC Distribution Width 13.2 % (11.5-14.5); Red Blood Cell (RBC) Count 3.68 mill/uL (4.70-6.10); White Blood Cell (WBC) Count 28.6 thou/uL (4.8-10.8)
[2018-12-21] MEDS: Lidocaine Patch Removal 1 EACH TOP SCH (06:00)
[2018-12-21] MEDS: Piperacillin/Tazobactam 4.5 GM in Sodium Chloride 0.9% 100 ML IVPB SCH ×2 (06:03→12:25)
[2018-12-21] MEDS: methylPREDNISolone Sod Succ 40 MG VIAL IVP SCH ×3 (06:04→17:54)
[2018-12-21] MEDS: Polyethylene Glycol 3350 17 GM Packet PO SCH ×2 (09:24→20:33)
[2018-12-21] MEDS: Lidocaine 5% Patch TD SCH (09:24)
--- NOTE | 2018-12-21 15:30 | PDOC.HOSPP ---
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 Started on antibiotics and bronchodilators for sepsis and COPD exacerbation. Feeling better. Oral intake is better. - Objective Vital Signs & Weight: Vital Signs (12 hours) Temp Pulse Resp Pulse Ox 12/21/18 13:53 103 H 32 H 95 12/21/18 11:14 98.3 F 12/21/18 08:00 97 12/21/18 07:21 91 L 12/21/18 07:19 87 20 90 L 12/21/18 07:12 98.4 F Weight Admit Weight 184 lb 8 oz Weight 187 lb 6.4 oz Most Recent Monitor Data Heart Rate from ECG 104 NIBP 112/74 NIBP BP-Mean 86 Respiration from ECG 30 SpO2 95 I&O: 12/20/18 12/21/18 12/22/18 06:59 06:59 06:59 Intake Total 1760 3002 474 Output Total 1550 1475 825 Balance 210 1527 -351 Result Diagrams: 12/21/18 03:32 12/21/18 03:32 Hospitalist ROS - Medication Medications: Active Medications Generic Name Dose Route Start Last Admin Trade Name Freq PRN Reason Stop Dose Admin Albuterol/Ipratropium 3 ml 12/17/18 19:00 12/21/18 13:53 Duoneb NEB 3 ml [id number] ALANIS Administration Lidocaine 2 patch 12/21/18 09:00 12/21/18 09:24 Lidoderm 5% Patch TD 2 patch DAILY ALANIS Administration Methylprednisolone Sodium Succinate 40 mg 12/17/18 18:00 12/21/18 12:26 Solu-Medrol IVP 40 mg Q6HR ALANIS Administration Miscellaneous Medication 1 each 12/21/18 21:00 12/21/18 06:00 Lidocaine Patch Removal TOP 1 each 2100 ALANIS Administration Polyethylene Glycol 17 gm 12/20/18 21:00 12/21/18 09:24 Miralax PO 17 gm BID ALANIS Administration Sodium Chloride 10 ml 12/17/18 17:28 12/17/18 20:57 Flush - Normal Saline IVF 10 ml PRN PRN Administration Saline Flush - Exam General Appearance: awake alert Eye: anicteric sclera ENT: normocephalic atraumatic ENT - other findings: Tracheostomy with T collar in place Heart: RRR Heart - other findings: tachycardic Respiratory - other findings: fair air entry bilaterally with transmitted sound Gastrointestinal: soft, normal bowel sounds Extremities: no edema Neurological: cranial nerve grossly intact Psychiatric: normal affect, A&O x 3 Hosp A/P (1) Sepsis Code(s): A41.9 - SEPSIS, UNSPECIFIED ORGANISM Status: Acute (2) Acute respiratory failure with hypoxia Code(s): J96.01 - ACUTE RESPIRATORY FAILURE WITH HYPOXIA Status: Acute (3) COPD with acute exacerbation Code(s): J44.1 - CHRONIC OBSTRUCTIVE PULMONARY DISEASE W (ACUTE) EXACERBATION Status: Acute (4) Hypokalemia Code(s): E87.6 - HYPOKALEMIA Status: Acute (5) Hyponatremia Code(s): E87.1 - HYPO-OSMOLALITY AND HYPONATREMIA Status: Acute (6) Pneumonia Code(s): J18.9 - PNEUMONIA, UNSPECIFIED ORGANISM Status: Acute (7) Stage 4 lung cancer Code(s): C34.90 - MALIGNANT NEOPLASM OF UNSP PART OF UNSP BRONCHUS OR LUNG Status: Acute (8) Tracheostomy complication, unspecified Code(s): J95.00 - UNSPECIFIED TRACHEOSTOMY COMPLICATION Status: Acute (9) Tracheostomy care Code(s): Z43.0 - ENCOUNTER FOR ATTENTION TO TRACHEOSTOMY Status: Acute (10) Dehydration Code(s): E86.0 - DEHYDRATION Status: Acute (11) Cancer of floor of mouth Status: Acute (12) Constipation Code(s): K59.00 - CONSTIPATION, UNSPECIFIED Status: Acute (13) Back pain Code(s): M54.9 - DORSALGIA, UNSPECIFIED Status: Acute (14) Leucocytosis Code(s): D72.829 - ELEVATED WHITE BLOOD CELL COUNT, UNSPECIFIED Status: Acute - Plan Continue antibiotics and bronchodilators Give another 60 meq today. Continue current treatments For discharge once cleared by pulmonary
[2018-12-21 15:45] LABS: Vancomycin, Trough 31.1 ug/mL
[2018-12-21] MEDS: fentaNYL 50 mcg/hour Patch TD SCH (15:58)
--- NOTE | 2018-12-21 16:53 | PRG ---
DATE OF SERVICE: 12/21/2018 SUBJECTIVE: Mr. Hernández's events have been reviewed. He is in no distress. He now has just dealing with 3 malignancies. He has throat cancer. He has HPV-related mouth cancer. He is dealing with his lung cancer that was initially read out to be squamous-cell carcinoma on repeat biopsies, which was now interpreted as being adenocarcinoma. OBJECTIVE: VITAL SIGNS: He is afebrile, heart rate is 103, respiratory rate 32, oximetry is 95% on trach collar. LUNGS: Clear. HEART: Regular rhythm. ABDOMEN: Soft. LABORATORY DATA: Microbiology cultures are negative. White count 28.6, hemoglobin 12.1, platelets 400,000. Sodium 138, potassium 3.6, chloride 98, bicarb 29, BUN 14, and creatinine 0.67. IMPRESSION: 1. Chronic obstructive pulmonary disease exacerbation, perhaps an early pneumonia. 2. Non-small cell lung cancer. 3. HPV-related floor of the mouth cancer. 4. History of head and neck cancer, that was squamous cell. 5. History of tracheostomy, but no PEG. PLAN: Continue supportive care, will be converted to p.o. antimicrobial therapy. He has been encouraged to ambulate. Job ID: [id number]
--- NOTE | 2018-12-21 20:27 | PRG ---
DATE OF SERVICE: SUBJECTIVE: Mr. Hernández is currently in CCU with a diagnosis of tongue and neck cancer. He already has a trach, cancer has since spread. Overall, he is doing okay. Dr. Hernández was following through the weekend and asked that we speak with him today. OBJECTIVE: The patient is well developed and well nourished. He is not in any acute distress at this time. His vital signs are currently stable. Trach is in place. He is in overall good spirits. Examination of tongue reveals tumor still present. ASSESSMENT: Tongue and neck cancer. PLAN: Per Dr. Cadena, it is recommended due to the advanced stages of the cancer and the metastatic state of it that he feels getting treatment from a formal cancer center would be the best form of treatment moving forward. Job ID: [id number]
[2018-12-21] MEDS: Morphine 4 MG/ML VIAL SLOW IVP PRN ×2 (20:28→22:37)
[2018-12-21] MEDS: Amoxicillin/Potassium Clav 875 MG TAB PO SCH (20:33)
[2018-12-22] MEDS: Morphine 4 MG/ML VIAL SLOW IVP PRN ×11 (01:00→23:57)
[2018-12-22] MEDS: methylPREDNISolone Sod Succ 40 MG VIAL IVP SCH ×5 (01:02→23:59)
[2018-12-22 04:57] LABS: Band 28 % (5-11); Eosinophils 3 % (0-10); Hemoglobin 12.8 g/dL (14.0-18.0); Lymphocytes 1 % (21-51); MDiff Complete? YES; Mean Corpuscular HGB CONC 32.1 g/dL (32.0-36.0); Mean Corpuscular Hemoglobin 32.5 pg (27.0-31.0); Mean Platelet Volume 6.2 fL (7.4-10.4); Monocytes 4 % (0-10); Neutrophil 64 % (42-75); Platelet Count 410 thou/uL (130-400); RBC Distribution Width 13.3 % (11.5-14.5); Red Blood Cell (RBC) Count 3.95 mill/uL (4.70-6.10); White Blood Cell (WBC) Count 31.7 thou/uL (4.8-10.8)
[2018-12-22 05:33] LABS: Anion Gap 12 mmol/L (10-20); BUN (Urea Nitrogen) 17 mg/dL (8.4-25.7); Calc. Creatinine Clearance 126 mL/min (70-130); Calcium 9.3 mg/dL (7.8-10.44); Carbon Dioxide 32 mmol/L (23-31); Chloride 95 mmol/L (98-107); Estimated GFR-MDRD Greater than 90; Glucose 127 mg/dL (80-115); Magnesium 1.8 mg/dL (1.6-2.6); Potassium 4.2 mmol/L (3.5-5.1); Sodium 135 mmol/L (136-145)
[2018-12-22] MEDS: Amoxicillin/Potassium Clav 875 MG TAB PO SCH ×2 (08:55→22:18)
[2018-12-22] MEDS: Polyethylene Glycol 3350 17 GM Packet PO SCH ×2 (08:55→22:18)
--- NOTE | 2018-12-22 09:17 | PDOC.HOSPP ---
- Subjective Encounter Date: 12/22/18 Encounter Time: 09:15 Subjective: Mr. Hernández was seen today in follow-up of respiratory failure. He is doing better, and says he is breathing easier. - Objective Vital Signs & Weight: Vital Signs (12 hours) Temp Pulse Resp Pulse Ox 12/22/18 07:23 116 H 26 H 12/22/18 07:00 98.9 F 12/22/18 03:00 97.1 F L 12/22/18 01:02 93 L 12/21/18 23:00 97.0 F L Weight Admit Weight 184 lb 8 oz Weight 175 lb 12.8 oz Most Recent Monitor Data Heart Rate from ECG 98 NIBP 120/77 NIBP BP-Mean 91 Respiration from ECG 17 SpO2 90 I&O: 12/21/18 12/22/18 12/23/18 06:59 06:59 06:59 Intake Total 3002 574 Output Total 1475 2100 Balance 1527 -1526 Result Diagrams: 12/22/18 04:09 12/22/18 04:09 Hospitalist ROS - Medication Medications: Active Medications Generic Name Dose Route Start Last Admin Trade Name Freq PRN Reason Stop Dose Admin Albuterol/Ipratropium 3 ml 12/17/18 19:00 12/22/18 07:23 Duoneb NEB 3 ml [id number] ALANIS Administration Amoxicillin/Clavulanate Potassium 875 mg 12/21/18 21:00 12/22/18 08:55 Augmentin PO 875 mg Q12HR ALANIS Administration Fentanyl 50 mcg 12/21/18 16:00 12/21/18 15:58 Duragesic TD 50 mcg Q3D ALANIS Administration Lidocaine 2 patch 12/21/18 09:00 12/22/18 08:54 Lidoderm 5% Patch TD 2 patch DAILY ALANIS Administration Methylprednisolone Sodium Succinate 40 mg 12/17/18 18:00 12/22/18 06:18 Solu-Medrol IVP 40 mg Q6HR ALANIS Administration Miscellaneous Medication 1 each 12/21/18 21:00 12/21/18 06:00 Lidocaine Patch Removal TOP 1 each 2100 ALANIS Administration Morphine Sulfate 4 mg 12/21/18 20:30 12/22/18 08:28 Morphine SLOW IVP 4 mg Q2H PRN Administration Moderate Pain (4-6) Polyethylene Glycol 17 gm 12/20/18 21:00 12/22/18 08:55 Miralax PO 17 gm BID ALANIS Administration Sodium Chloride 10 ml 12/17/18 17:28 12/17/18 20:57 Flush - Normal Saline IVF 10 ml PRN PRN Administration Saline Flush - Exam Eye: PERRL, anicteric sclera ENT - other findings: poor dentition, and lesions at the base of the tongue- friable and bleeding Heart: RRR, no murmur, no gallops, no rubs, normal peripheral pulses Respiratory: CTAB, no wheezes, no rales, normal chest expansion, no tachypnea, normal percussion, rhonchi (+ occasional rhonchi, and coarse breath sounds) Gastrointestinal: soft, non-tender, normal bowel sounds, no palpable masses, no hepatomegaly, no splenomegaly, distended (+ tympanic to percussion) Extremities: no cyanosis, no clubbing, no edema Skin: normal turgor, no lesions, no rashes Hosp A/P (1) Healthcare-associated pneumonia Code(s): J18.9 - PNEUMONIA, UNSPECIFIED ORGANISM Status: Acute (2) Acute respiratory failure with hypoxia Code(s): J96.01 - ACUTE RESPIRATORY FAILURE WITH HYPOXIA Status: Acute (3) Stage 4 lung cancer Code(s): C34.90 - MALIGNANT NEOPLASM OF UNSP PART OF UNSP BRONCHUS OR LUNG Status: Chronic (4) Tracheostomy care Code(s): Z43.0 - ENCOUNTER FOR ATTENTION TO TRACHEOSTOMY Status: Acute - Plan * Acute respiratory failure- from bleeding through trach, and probable HAP- He has been transitioned to oral antibiotics- Augmentin * Consider change to oral steroids today * Bleeding from trach, may at least be in part from bleeding from the mouth * Stage 4 Lung Cancer- plan is to start Keytruda therapy as soon as he leaves the hospital * Disposition as per [facility]
[2018-12-22] MEDS: Lidocaine 5% Patch TD SCH (11:23)
--- NOTE | 2018-12-22 16:43 | PRG ---
DATE OF SERVICE: 12/22/2018 SUBJECTIVE: Kraig Hernández did well overnight. He has no new complaints. He has not stood at the bedside or walked. He wants to go home, but his says she is nervous about him going home. OBJECTIVE: VITAL SIGNS: His heart rate is 117, respiratory rate is in the high 20s, blood pressure is 141/85. LUNGS: Unchanged. HEART: Unchanged. ABDOMEN: Unchanged. BACK: Otherwise, his back pain is better. IMPRESSION: 1. Metastatic cancer with three primaries, one head and neck, one lung, and one floor of his mouth tumor. 2. Weakness and deconditioning. 3. Status post tracheostomy for throat cancer. 4. Leukocytosis 28% bands on his peripheral smear. He has had a bandemia ever since he was admitted. PLAN: Short-term prognosis is quite guarded. We will continue supportive care. If we can get him at least able to transfer, he could spend time at home. Push him into a skilled facility when his wishes are to go to home, when he clearly has a limited time left with his multiple malignancies, I think it is not exactly fair to him. I will decrease his steroids. We will continue to follow. Job ID: [id number]
[2018-12-22] MEDS: Lidocaine Patch Removal 1 EACH TOP SCH (23:59)
[2018-12-23] MEDS: Morphine 4 MG/ML VIAL SLOW IVP PRN ×9 (02:21→23:57)
[2018-12-23] MEDS: methylPREDNISolone Sod Succ 40 MG VIAL IVP SCH ×4 (06:07→23:58)
[2018-12-23] MEDS: Amoxicillin/Potassium Clav 875 MG TAB PO SCH ×2 (08:56→21:37)
[2018-12-23] MEDS: Polyethylene Glycol 3350 17 GM Packet PO SCH ×2 (08:57→21:37)
[2018-12-23] MEDS: Lidocaine 5% Patch TD SCH (08:57)
--- NOTE | 2018-12-23 13:26 | PRG ---
DATE OF SERVICE: 12/23/2018 SUBJECTIVE: on the side of the bed. OBJECTIVE: VITAL SIGNS: He is afebrile, heart rate 117, blood pressure 170/85, respiratory rates in the 30s. LUNGS: Remarkable for mild rhonchi. HEART: Regular rhythm. ABDOMEN: Soft. He has an excellent cough. LABORATORY DATA: White count 31.7 yesterday. There is no CBC today. No electrolytes today. IMPRESSION: 1. Widely metastatic malignancy with multiple primaries. 2. Anorexia, most likely related to tumor necrosis factor and his malignancy. 3. Deconditioning that is extreme. I have explained to him that functionally get out of bed to a chair within the next couple days, then he needs to go to a skilled environment. If he cannot walk into the oncologist's office for treatment or at least transfer when he goes to the oncologist office from wheelchair to a treatment chair. It is unlikely he will be a candidate for treatment. I met with the and the daughter and answered all their questions. Job ID: [id number]
--- NOTE | 2018-12-23 18:20 | PDOC.HOSPP ---
- Subjective Encounter Date: 12/23/18 Encounter Time: 11:00 Subjective: Mr. Hernández was seen today in follow-up if acute respiratory failure. He does not have any complaints today. He has less bleeding from the mouth. - Objective Vital Signs & Weight: Vital Signs (12 hours) Temp Pulse Pulse Pulse Resp BP BP 12/23/18 17:05 12/23/18 15:43 96.2 F L 12/23/18 13:30 130 H 124 H 170/85 H 121/84 12/23/18 12:59 125 H 26 H 12/23/18 11:14 96.7 F L 12/23/18 08:00 12/23/18 07:36 97.4 F L 12/23/18 07:19 110 H 32 H BP Pulse Ox 12/23/18 17:05 158/95 H 12/23/18 15:43 12/23/18 13:30 12/23/18 12:59 92 L 12/23/18 11:14 12/23/18 08:00 89 L 12/23/18 07:36 12/23/18 07:19 Weight Admit Weight 184 lb 8 oz Weight 174 lb 3.2 oz Most Recent Monitor Data Heart Rate from ECG 107 NIBP 165/127 NIBP BP-Mean 139 Respiration from ECG 28 SpO2 91 I&O: 12/22/18 12/23/18 12/24/18 06:59 06:59 06:59 Intake Total 574 1560 Output Total 2100 1575 150 Balance -1526 -15 -150 Result Diagrams: 12/22/18 04:09 12/22/18 04:09 Hospitalist ROS - Medication Medications: Active Medications Generic Name Dose Route Start Last Admin Trade Name Freq PRN Reason Stop Dose Admin Acetaminophen 650 mg 12/17/18 17:28 12/22/18 15:20 Tylenol PO 650 mg Q4H PRN Administration Headache/Fever/Mild Pain (1-3) Albuterol/Ipratropium 3 ml 12/17/18 19:00 12/23/18 12:59 Duoneb NEB 3 ml [id number] ALANIS Administration Amoxicillin/Clavulanate Potassium 875 mg 12/21/18 21:00 12/23/18 08:56 Augmentin PO 875 mg Q12HR ALANIS Administration Fentanyl 50 mcg 12/21/18 16:00 12/21/18 15:58 Duragesic TD 50 mcg Q3D ALANIS Administration Lidocaine 2 patch 12/21/18 09:00 12/23/18 08:57 Lidoderm 5% Patch TD 2 patch DAILY ALANIS Administration Methylprednisolone Sodium Succinate 20 mg 12/22/18 18:00 12/23/18 18:09 Solu-Medrol IVP 20 mg Q6HR ALANIS Administration Miscellaneous Medication 1 each 12/21/18 21:00 12/22/18 23:59 Lidocaine Patch Removal TOP 1 each 2100 ALANIS Administration Morphine Sulfate 4 mg 12/21/18 20:30 12/23/18 18:08 Morphine SLOW IVP 4 mg Q2H PRN Administration Moderate Pain (4-6) Polyethylene Glycol 17 gm 12/20/18 21:00 12/23/18 08:57 Miralax PO 17 gm BID ALANIS Administration Sodium Chloride 10 ml 12/17/18 17:28 12/17/18 20:57 Flush - Normal Saline IVF 10 ml PRN PRN Administration Saline Flush - Exam Eye: PERRL, anicteric sclera ENT: normocephalic atraumatic (+ poor dention, and mass lesions at the gum line , friable, and bleeding) Heart: RRR, no murmur, no gallops, no rubs, normal peripheral pulses Respiratory: CTAB (with the exception of occasional wheezing, no rales) Gastrointestinal: soft, non-tender, non-distended, normal bowel sounds, no palpable masses, no hepatomegaly, no splenomegaly, no bruit, no guarding Extremities: no cyanosis, no clubbing, no edema Hosp A/P (1) Healthcare-associated pneumonia Code(s): J18.9 - PNEUMONIA, UNSPECIFIED ORGANISM Status: Acute (2) Acute respiratory failure with hypoxia Code(s): J96.01 - ACUTE RESPIRATORY FAILURE WITH HYPOXIA Status: Acute (3) Stage 4 lung cancer Code(s): C34.90 - MALIGNANT NEOPLASM OF UNSP PART OF UNSP BRONCHUS OR LUNG Status: Chronic (4) Tracheostomy care Code(s): Z43.0 - ENCOUNTER FOR ATTENTION TO TRACHEOSTOMY Status: Acute - Plan * Acute respiratory failure- improving * He is currently on Augmentin, and the steroid has been reduced * Bleeding from trach, may at least be in part from bleeding from the mouth * Stage 4 Lung Cancer- plan is to start Keytruda therapy as soon as he leaves the hospital * Continue to mobilize as much as possible * Home soon
[2018-12-23] MEDS: Lidocaine Patch Removal 1 EACH TOP SCH (21:54)
[2018-12-24] MEDS: Morphine 4 MG/ML VIAL SLOW IVP PRN ×9 (02:08→23:11)
[2018-12-24] MEDS: methylPREDNISolone Sod Succ 40 MG VIAL IVP SCH ×2 (05:39→10:59)
[2018-12-24] MEDS: Amoxicillin/Potassium Clav 875 MG TAB PO SCH ×2 (08:45→22:52)
[2018-12-24] MEDS: Polyethylene Glycol 3350 17 GM Packet PO SCH ×2 (08:45→23:05)
[2018-12-24] MEDS: Lidocaine 5% Patch TD SCH (08:50)
[2018-12-24 12:44] LABS: Hemoglobin 12.7 g/dL (14.0-18.0); Mean Corpuscular HGB CONC 32.7 g/dL (32.0-36.0); Mean Corpuscular Hemoglobin 32.6 pg (27.0-31.0); Mean Corpuscular Volume 99.5 fL (78.0-98.0); Mean Platelet Volume 6.5 fL (7.4-10.4); Platelet Count 321 thou/uL (130-400); RBC Distribution Width 13.3 % (11.5-14.5); Red Blood Cell (RBC) Count 3.89 mill/uL (4.70-6.10)
[2018-12-24 12:51] LABS: Albumin 3.6 g/dL (3.4-4.8); Anion Gap 17 mmol/L (10-20); BUN (Urea Nitrogen) 21 mg/dL (8.4-25.7); BUN/Creatinine Ratio 31.82; Calc. Creatinine Clearance 133 mL/min (70-130); Calcium 9.7 mg/dL (7.8-10.44); Carbon Dioxide 31 mmol/L (23-31); Chloride 89 mmol/L (98-107); Estimated GFR-MDRD Greater than 90; Glucose 102 mg/dL (80-115); Magnesium 1.7 mg/dL (1.6-2.6); Phosphorus 4.5 mg/dL (2.3-4.7); Potassium 4.5 mmol/L (3.5-5.1); Sodium 132 mmol/L (136-145)
[2018-12-24 13:09] LABS: Band 32 % (5-11); Lymphocytes 2 % (21-51); MDiff Complete? YES; Monocytes 5 % (0-10); Neutrophil 61 % (42-75); Platelet Morphology Comment Appears Adequate; Polychromasia SLIGHT = 2-3 cells (100X) (0-2/hpf); Vacuoles SLIGHT
--- NOTE | 2018-12-24 16:17 | PRG ---
DATE OF SERVICE: 12/24/2018 SUBJECTIVE: Kraig Hernández walked to the bathroom yesterday with standby assist. He said he felt reasonably stable on his feet. He still has mild resting tachycardia. OBJECTIVE: VITAL SIGNS: He is afebrile, respiratory rates in the high 20s to low 30s, oximetry is 99% on his trach collar, blood pressure 141/88. LUNGS: Unchanged. HEART: Unchanged. ABDOMEN: Unchanged. IMPRESSION: Multiple primary malignancies, head and neck, mouth, lung with bone metastases. His white count is still 32, hemoglobin is 12.7, platelets 321. Electrolytes were unremarkable. I suspect some of his white counts related to his steroids. I will switch him to prednisone today. He will be moved to the Oncology unit. He would like to receive chemo if it is planned for him while he is in the hospital. We will have to discuss with Oncology. Job ID: [id number]
[2018-12-24] MEDS: fentaNYL 50 mcg/hour Patch TD SCH (16:27)
--- NOTE | 2018-12-24 18:26 | PDOC.HOSPP ---
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 Started on antibiotics and bronchodilators for sepsis and COPD exacerbation with some improvement. Still having some oral bleeding from excoriation of mouth floor cancer as well as from tracheostomy. Feeling better. Oral intake is better. - Objective Vital Signs & Weight: Vital Signs (12 hours) Temp Pulse Pulse Pulse Resp BP BP 12/24/18 13:59 119 H 33 H 12/24/18 13:18 120 H 115 H 141/88 H 172/86 H 12/24/18 12:17 97.3 F L 12/24/18 08:00 12/24/18 07:54 12/24/18 07:51 100 18 12/24/18 06:48 97.2 F L Pulse Ox Pulse Ox Pulse Ox 12/24/18 13:59 99 12/24/18 13:18 100 93 L 12/24/18 12:17 12/24/18 08:00 93 L 12/24/18 07:54 94 L 12/24/18 07:51 94 L 12/24/18 06:48 Weight Admit Weight 184 lb 8 oz Weight 185 lb 3.013 oz Most Recent Monitor Data Heart Rate from ECG 118 NIBP 153/101 NIBP BP-Mean 118 Respiration from ECG 25 SpO2 100 I&O: 12/23/18 12/24/18 12/25/18 06:59 06:59 06:59 Intake Total 0836 718 2274 Output Total 1575 1000 450 Balance -15 -180 1221 Result Diagrams: 12/24/18 12:19 12/24/18 12:19 Hospitalist ROS - Medication Medications: Active Medications Generic Name Dose Route Start Last Admin Trade Name Freq PRN Reason Stop Dose Admin Acetaminophen 650 mg 12/17/18 17:28 12/22/18 15:20 Tylenol PO 650 mg Q4H PRN Administration Headache/Fever/Mild Pain (1-3) Albuterol/Ipratropium 3 ml 12/17/18 19:00 12/24/18 13:59 Duoneb NEB 3 ml [id number] ALANIS Administration Amoxicillin/Clavulanate Potassium 875 mg 12/21/18 21:00 12/24/18 08:45 Augmentin PO 875 mg Q12HR ALANIS Administration Fentanyl 50 mcg 12/21/18 16:00 12/24/18 16:27 Duragesic TD 50 mcg Q3D ALANIS Administration Lidocaine 2 patch 12/21/18 09:00 12/24/18 08:50 Lidoderm 5% Patch TD 2 patch DAILY ALANIS Administration Miscellaneous Medication 1 each 12/21/18 21:00 12/23/18 21:54 Lidocaine Patch Removal TOP 1 each 2100 ALANIS Administration Morphine Sulfate 4 mg 12/21/18 20:30 12/24/18 17:01 Morphine SLOW IVP 4 mg Q2H PRN Administration Moderate Pain (4-6) Polyethylene Glycol 17 gm 12/20/18 21:00 12/24/18 08:45 Miralax PO 17 gm BID ALANIS Administration Sodium Chloride 10 ml 12/17/18 17:28 12/17/18 20:57 Flush - Normal Saline IVF 10 ml PRN PRN Administration Saline Flush - Exam General Appearance: awake alert Eye: anicteric sclera ENT: normocephalic atraumatic ENT - other findings: tracheostomy with some bloody smaer Heart: RRR Heart - other findings: tachycardic Respiratory - other findings: fair air entry with trransmitted sound Gastrointestinal: soft, normal bowel sounds Extremities: no edema Neurological: cranial nerve grossly intact Psychiatric: A&O x 3 Hosp A/P (1) Sepsis Code(s): A41.9 - SEPSIS, UNSPECIFIED ORGANISM Status: Acute (2) Acute respiratory failure with hypoxia Code(s): J96.01 - ACUTE RESPIRATORY FAILURE WITH HYPOXIA Status: Acute (3) COPD with acute exacerbation Code(s): J44.1 - CHRONIC OBSTRUCTIVE PULMONARY DISEASE W (ACUTE) EXACERBATION Status: Acute (4) Hypokalemia Code(s): E87.6 - HYPOKALEMIA Status: Acute (5) Hyponatremia Code(s): E87.1 - HYPO-OSMOLALITY AND HYPONATREMIA Status: Acute (6) Pneumonia Code(s): J18.9 - PNEUMONIA, UNSPECIFIED ORGANISM Status: Acute (7) Stage 4 lung cancer Code(s): C34.90 - MALIGNANT NEOPLASM OF UNSP PART OF UNSP BRONCHUS OR LUNG Status: Chronic (8) Tracheostomy complication, unspecified Code(s): J95.00 - UNSPECIFIED TRACHEOSTOMY COMPLICATION Status: Acute (9) Tracheostomy care Code(s): Z43.0 - ENCOUNTER FOR ATTENTION TO TRACHEOSTOMY Status: Acute (10) Dehydration Code(s): E86.0 - DEHYDRATION Status: Acute (11) Cancer of floor of mouth Status: Acute (12) Constipation Code(s): K59.00 - CONSTIPATION, UNSPECIFIED Status: Acute (13) Back pain Code(s): M54.9 - DORSALGIA, UNSPECIFIED Status: Acute (14) Leucocytosis Code(s): D72.829 - ELEVATED WHITE BLOOD CELL COUNT, UNSPECIFIED Status: Acute (15) Laryngeal cancer Status: Acute - Plan Continue antibiotics and bronchodilators Continue current treatments Steroid as per Pulmonary. Continue PT/OT
[2018-12-24] MEDS: Lidocaine Patch Removal 1 EACH TOP SCH (22:53)
[2018-12-25] MEDS: Morphine 4 MG/ML VIAL SLOW IVP PRN ×10 (01:29→22:26)
[2018-12-25 03:50] LABS: Anion Gap 14 mmol/L (10-20); BUN (Urea Nitrogen) 20 mg/dL (8.4-25.7); Band 23 % (5-11); Calc. Creatinine Clearance 135 mL/min (70-130); Calcium 9.2 mg/dL (7.8-10.44); Carbon Dioxide 32 mmol/L (23-31); Chloride 90 mmol/L (98-107); Eosinophils 13 % (0-10); Estimated GFR-MDRD Greater than 90; Glucose 90 mg/dL (80-115); Hemoglobin 12.6 g/dL (14.0-18.0); Lymphocytes 1 % (21-51); MDiff Complete? YES; Mean Corpuscular HGB CONC 33.4 g/dL (32.0-36.0); Mean Corpuscular Hemoglobin 33.2 pg (27.0-31.0); Mean Corpuscular Volume 99.6 fL (78.0-98.0); Mean Platelet Volume 6.7 fL (7.4-10.4); Neutrophil 63 % (42-75); Platelet Count 279 thou/uL (130-400); Platelet Morphology Comment Appears Adequate; Potassium 3.6 mmol/L (3.5-5.1); RBC Distribution Width 13.3 % (11.5-14.5); Red Blood Cell (RBC) Count 3.78 mill/uL (4.70-6.10); Sodium 132 mmol/L (136-145)
--- NOTE | 2018-12-25 07:59 | PDOC.HOSPP ---
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 Started on antibiotics and bronchodilators for sepsis and COPD exacerbation with some improvement. Still having some bleeding from excoriation of mouth floor cancer as well as from tracheostomy. Feeling better. Oral intake is better. No new problem - Objective Vital Signs & Weight: Vital Signs (12 hours) Temp Pulse Resp BP Pulse Ox 12/25/18 06:10 118 H 24 H 93 L 12/25/18 03:00 98.4 F 107 H 20 138/67 92 L 12/25/18 00:31 95 12/25/18 00:25 113 H 30 H 83 L 12/24/18 23:00 98.4 F 119 H 16 123/85 95 12/24/18 20:00 93 L Weight Admit Weight 184 lb 8 oz Weight 185 lb 3.013 oz Most Recent Monitor Data Heart Rate from ECG 118 NIBP 153/101 NIBP BP-Mean 118 Respiration from ECG 25 SpO2 100 I&O: 12/24/18 12/25/18 12/26/18 06:59 06:59 06:59 Intake Total 820 1911 Output Total 1000 1000 Balance -180 911 Result Diagrams: 12/25/18 03:20 12/25/18 03:20 Hospitalist ROS - Medication Medications: Active Medications Generic Name Dose Route Start Last Admin Trade Name Freq PRN Reason Stop Dose Admin Acetaminophen 650 mg 12/17/18 17:28 12/22/18 15:20 Tylenol PO 650 mg Q4H PRN Administration Headache/Fever/Mild Pain (1-3) Albuterol/Ipratropium 3 ml 12/17/18 19:00 12/25/18 06:10 Duoneb NEB 3 ml [id number] ALANIS Administration Amoxicillin/Clavulanate Potassium 875 mg 12/21/18 21:00 12/24/18 22:52 Augmentin PO 875 mg Q12HR ALANIS Administration Fentanyl 50 mcg 12/21/18 16:00 12/24/18 16:27 Duragesic TD 50 mcg Q3D ALANIS Administration Lidocaine 2 patch 12/21/18 09:00 12/24/18 08:50 Lidoderm 5% Patch TD 2 patch DAILY ALANIS Administration Miscellaneous Medication 1 each 12/21/18 21:00 12/24/18 22:53 Lidocaine Patch Removal TOP 1 each 2100 ALANIS Administration Morphine Sulfate 4 mg 12/21/18 20:30 12/25/18 05:34 Morphine SLOW IVP 4 mg Q2H PRN Administration Moderate Pain (4-6) Polyethylene Glycol 17 gm 12/20/18 21:00 12/24/18 23:05 Miralax PO 17 gm BID ALANIS Administration Sodium Chloride 10 ml 12/17/18 17:28 12/17/18 20:57 Flush - Normal Saline IVF 10 ml PRN PRN Administration Saline Flush - Exam General Appearance: awake alert Eye: anicteric sclera ENT: normocephalic atraumatic ENT - other findings: some blood noted around the mouth floor growth Neck - other findings: Tracheostomy with T collar noted Heart: RRR Heart - other findings: tachycardic Respiratory - other findings: Fair air entry with scattered transmitted sound and few rhonchi Gastrointestinal: soft, non-tender, non-distended, normal bowel sounds Extremities: no cyanosis, no edema Neurological: cranial nerve grossly intact Psychiatric: A&O x 3 Hosp A/P (1) Acute respiratory failure with hypoxia Code(s): J96.01 - ACUTE RESPIRATORY FAILURE WITH HYPOXIA Status: Acute (2) Sepsis Code(s): A41.9 - SEPSIS, UNSPECIFIED ORGANISM Status: Acute (3) COPD with acute exacerbation Code(s): J44.1 - CHRONIC OBSTRUCTIVE PULMONARY DISEASE W (ACUTE) EXACERBATION Status: Acute (4) Hypokalemia Code(s): E87.6 - HYPOKALEMIA Status: Acute (5) Hyponatremia Code(s): E87.1 - HYPO-OSMOLALITY AND HYPONATREMIA Status: Acute (6) Pneumonia Code(s): J18.9 - PNEUMONIA, UNSPECIFIED ORGANISM Status: Acute (7) Stage 4 lung cancer Code(s): C34.90 - MALIGNANT NEOPLASM OF UNSP PART OF UNSP BRONCHUS OR LUNG Status: Chronic (8) Tracheostomy complication, unspecified Code(s): J95.00 - UNSPECIFIED TRACHEOSTOMY COMPLICATION Status: Acute (9) Tracheostomy care Code(s): Z43.0 - ENCOUNTER FOR ATTENTION TO TRACHEOSTOMY Status: Acute (10) Dehydration Code(s): E86.0 - DEHYDRATION Status: Acute (11) Cancer of floor of mouth Status: Acute (12) Constipation Code(s): K59.00 - CONSTIPATION, UNSPECIFIED Status: Acute (13) Back pain Code(s): M54.9 - DORSALGIA, UNSPECIFIED Status: Acute (14) Leucocytosis Code(s): D72.829 - ELEVATED WHITE BLOOD CELL COUNT, UNSPECIFIED Status: Acute (15) Laryngeal cancer Status: Acute - Plan Get serum and urine osmolality. Get repeat CXR Continue antibiotics and bronchodilators Steroid as per Pulmonary. Continue PT/OT Await Oncology re evaluation for possible chemotherapy initiation. for discharge if no chemotherapy planned
[2018-12-25] MEDS: predniSONE 20 MG TAB PO SCH (08:23)
[2018-12-25] MEDS: Polyethylene Glycol 3350 17 GM Packet PO SCH ×2 (08:23→20:10)
[2018-12-25] MEDS: Amoxicillin/Potassium Clav 875 MG TAB PO SCH ×2 (08:23→20:10)
[2018-12-25] MEDS: Lidocaine 5% Patch TD SCH (08:24)
--- NOTE | 2018-12-25 09:47 | RAD ---
FRONTAL VIEW CHEST: Date: 12/25/18 COMPARISON: 12/17/18. INDICATION: Shortness of breath. FINDINGS: There is diffuse hazy density again seen throughout the left chest. Tracheostomy remains in place. Th ere is a right chest port again demonstrated. Right lung demonstrates interstitial prominence, simila r in appearance. Cardiomediastinal silhouette is accentuated by portable technique. There is vascular prominence at each hilar region. IMPRESSION: Grossly stable chest. POS: OFF
--- NOTE | 2018-12-25 14:32 | PDOC.MOPN ---
Interval History: better today - Vital Signs Vital Signs: Vital Signs (12 hours) Temp Pulse Resp BP Pulse Ox 12/25/18 12:55 119 H 20 12/25/18 08:26 98.9 F 119 H 22 H 119/62 90 L 12/25/18 08:00 90 L 12/25/18 06:10 118 H 24 H 93 L 12/25/18 03:00 98.4 F 107 H 20 138/67 92 L Weight Admit Weight 184 lb 8 oz Weight 185 lb 3.013 oz Most Recent Monitor Data Heart Rate from ECG 118 NIBP 153/101 NIBP BP-Mean 118 Respiration from ECG 25 SpO2 100 - Physical Exam General: Alert, Oriented x3, No acute distress HEENT: Atraumatic, PERRLA, EOMI, Mucous membr. moist/pink Lungs: Other (rhonchi) Cardiovascular: Regular rate Abdomen: Normal bowel sounds Extremities: No clubbing, No cyanosis, No edema, Normal pulses, No tenderness/ swelling Skin: No rashes, No breakdown, No significant lesion Neurological: Other Psych/Mental Status: Mental status NL - Labs Result Diagrams: 12/25/18 03:20 12/25/18 03:20 Lab results: Laboratory Results - last 24 hr 12/25/18 12:00: Urine Sodium Less than 20 12/25/18 12:00: Urine Osmolality 441 12/25/18 08:54: Serum Osmolality 282 12/25/18 03:20: WBC 28.0 H, RBC 3.78 L, Hgb 12.6 L, Hct 37.6 L, MCV 99.6 H, MCH 33.2 H, MCHC 33.4, RDW 13.3, Plt Count 279, MPV 6.7 L, Neutrophils % (Manual) 63 , Band Neuts % (Manual) 23 H, Lymphocytes % (Manual) 1 L, Eosinophils % (Manual ) 13 H, Plt Morphology Comment Appears Adequate 12/25/18 03:20: Sodium 132 L, Potassium 3.6, Chloride 90 L, Carbon Dioxide 32 H , Anion Gap 14, BUN 20, Creatinine 0.65 L, Estimated GFR (MDRD) Greater than 90 , Glucose 90, Calcium 9.2 Status: lab reviewed by me A/P - Problem (1) Cancer of floor of mouth Current Visit: Yes Status: Acute - Plan Plan: Patient will start XRT for impending cord compression Keytruda once discharged home.
--- NOTE | 2018-12-25 16:12 | CON ---
DATE OF CONSULTATION: 12/25/2018 REASON FOR CONSULTATION: Mr. Hernández is a 63-year-old gentleman, well known to me, who has bone metastasis. I was asked to see him to discuss his options with Radiation Therapy. HISTORY OF PRESENT ILLNESS: Mr. Hernández is well known to me. 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 He subsequently relapsed in 2016 with left upper lobe lung mass that was felt to represent either metastasis or a new primary. We attempted biopsy, but were unsuccessful. He was therefore treated with an accelerated course of radiation therapy, which was completed on 09/25/2015. By 2018, he had clearly progressed in the lung and he had several other pulmonary nodules. He was started on chemotherapy with some response and then developed stable disease. More recently, he has had progressive disease on the chemotherapy. A repeat biopsy of the lung was performed, which confirmed diagnosis of squamous cell carcinoma. PD-L1 was high. He then developed a lesion in the floor of mouth, which was biopsied and there was also a squamous cell carcinoma that appeared to be sensitive to immunotherapy. I saw him recently to discuss whether we should give him some radiation therapy to the floor of mouth lesion because he was having some bleeding. However, he is having back pain and just had a CT scan, which had shown clear progression of the disease in his lungs and also suggested a fracture of the T11 vertebral body. It is not clear whether this is pathologic. I obtained an MRI of the thoracic and lumbar spine. This showed multiple areas consistent with bone metastasis. He had compression fracture of the T11 vertebral body with retropulsion and some indentation on the cord with an impending cord compression. He is neurologically intact. Last Cezar, he was to come to see me to discuss his MRI findings when he was admitted to the hospital for pneumonia. He has been in the intensive care unit up until yesterday when he was transferred to the floor. He is having back pain. I have now been asked to see him to discuss his options with radiation. Again, he continues to have some oozing and bleeding from the floor of mouth tumor. He has some shortness of breath and is on oxygen therapy. He is still having mid back pain. He does have some difficulty with eating and swallowing related to some swelling in the throat. He has generalized weakness, but denies any focal weakness or numbness. He has had constipation since being on pain medication. He has no difficulty with his bladder. His only area of pain at the present time is in the mid spine region. He voices no other complaints. PAST MEDICAL HISTORY: 1. Glottic larynx cancer as mentioned above. 2. Possible lung cancer versus lung metastasis as mentioned above. 3. GE reflux disease with history of abdominal surgery for this. 4. Hypertension. 5. Hypercholesterolemia. 6. He denies other medical or surgical problems. MEDICATIONS: 1. DuoNeb nebulizers. 2. Augmentin. 3. Dulcolax. 4. Duragesic. 5. Morphine. 6. MiraLAX. 7. Prednisone. ALLERGIES: NO KNOWN MEDICAL ALLERGIES. SOCIAL HISTORY: He has been living with his in [place]. He is a previous smoker. He has no recent alcohol use. FAMILY HISTORY: Positive for cancer in both his mother and his brother. His brother had throat cancer. His mother had lung cancer. REVIEW OF SYSTEMS: Twelve system review of systems is otherwise negative. PHYSICAL EXAMINATION: VITAL SIGNS: Height 5 feet 7 inches, weight 185 pounds, blood pressure is 119/62, pulse is 119, respirations are 22, temperature is 98.9, and O2 saturation is 90%. HEENT: Eyes, pupils are equal, round, and reactive to light. Extraocular movements are intact. ENT, oral cavity reveals an ulcerated friable mass involving the anterior floor of mouth and extending onto the gingiva anteriorly. No other lesion is seen. NECK: Diffusely firm. No preauricular, submandibular, cervical, or supraclavicular adenopathy. Tracheostomy is in place. No thyromegaly. LUNGS: Coarse breath sounds bilaterally. Breathing mildly labored. HEART: Tachycardic without murmur. No lower extremity edema. ABDOMEN: The bowel sounds are present. Slightly distended. Nontender without mass. Liver percusses to normal size. LYMPHATIC: No axillary or inguinal adenopathy. NEUROLOGIC: Cranial nerves 2 through 12 grossly intact. Motor strength is 5/5 in both upper and lower extremities in all muscle groups tested. Gait was not tested. RADIOLOGIC: Recent MRI of the thoracic and lumbar spine were personally reviewed. Again, he has numerous bone metastasis. He does have a compression fracture with retropulsion at T11, which is indenting the cord. There does appear to be some space behind the cord posteriorly. LABORATORY DATA: CBC showed white blood cell count 28,000. Hemoglobin was 12.6, hematocrit was 37.6. Platelet count 279,000. Chemistry group showed a sodium of 132. Carbon dioxide was 32. Calcium was normal at 9.2. ASSESSMENT: Mr. Hernández is a 63-year-old gentleman, well known to me with numerous squamous cell carcinomas, who has extensive lung and bone metastasis. He also has a probable new primary in the floor of mouth, which is having some bleeding and oozing, but has not significantly lowered his hemoglobin at this point. PLAN: I had a good discussion with Mr. Hernández and his . I also discussed the case with Dr. Ariza and Dr. Garcia. Because of his impending spinal cord compression, I would recommend palliative radiation therapy to the lower thoracic spine region. Neurologically, he is intact at this point, and I agree with the prednisone that he is on. He has been able to ambulate with assistance to the bathroom at times. Nevertheless, I think it is important that we begin radiation therapy fairly soon given the degree of indentation on the cord on the MRI. This will also hopefully assist with his pain relief as this seems to be the area that he is having pain. The logistics of radiation as well as the benefits and risk of treatment were discussed. Side effects would include, but not be limited to skin reaction, fatigue, lower blood counts, difficulty or pain with swallowing, weight loss, and small risk of damage to his spinal cord or other structures, which receives radiation therapy. Time was taken to answer all other questions regarding radiation. Up until recently, he has been too sick to do radiotherapy. He has made improvement and thus think that he would be able to lie in a flat position on Friday for his radiation plan. We will make arrangements for him to undergo simulation on Friday so that we can begin his radiation therapy. I do think that he cannot receive radiation to this area even if he is on Keytruda. The floor of mouth lesion is a little more difficult. He has having some oozing from this and this area could be treated with radiation therapy, even though it may overlap slightly into his previously treated radiation gupta. Dr. Garcia is hoping to begin the patient on Keytruda. However, he will not be able to give him Keytruda therapy while an inpatient. We will coordinate this with Dr. Garcia. We could begin some radiation therapy to try and palliate his bleeding, although the interaction between Keytruda and radiation therapy for this area is not quite known. I will discuss this further with Dr. Garcia and we will make a decision on how best to proceed with treatment for that area. Thank you for this interesting consultation. Job ID: [id number]
[2018-12-25] MEDS: Lidocaine Patch Removal 1 EACH TOP SCH (22:27)
[2018-12-26] MEDS: Morphine 4 MG/ML VIAL SLOW IVP PRN ×10 (00:34→23:13)
[2018-12-26] MEDS: Amoxicillin/Potassium Clav 875 MG TAB PO SCH ×2 (07:57→20:33)
[2018-12-26] MEDS: Polyethylene Glycol 3350 17 GM Packet PO SCH ×2 (07:57→23:18)
[2018-12-26] MEDS: predniSONE 20 MG TAB PO SCH (07:57)
[2018-12-26] MEDS: Lidocaine 5% Patch TD SCH (07:58)
[2018-12-26 08:52] LABS: Hemoglobin 12.3 g/dL (14.0-18.0); Mean Corpuscular HGB CONC 33.3 g/dL (32.0-36.0); Mean Corpuscular Hemoglobin 33.3 pg (27.0-31.0); Platelet Count 247 thou/uL (130-400); RBC Distribution Width 13.4 % (11.5-14.5); Red Blood Cell (RBC) Count 3.69 mill/uL (4.70-6.10); White Blood Cell (WBC) Count 26.5 thou/uL (4.8-10.8)
[2018-12-26 09:06] LABS: Anion Gap 13 mmol/L (10-20); BUN (Urea Nitrogen) 18 mg/dL (8.4-25.7); Calc. Creatinine Clearance 125 mL/min (70-130); Calcium 9.6 mg/dL (7.8-10.44); Carbon Dioxide 34 mmol/L (23-31); Chloride 92 mmol/L (98-107); Estimated GFR-MDRD Greater than 90; Glucose 97 mg/dL (80-115); Potassium 3.6 mmol/L (3.5-5.1); Sodium 135 mmol/L (136-145)
[2018-12-26 10:15] LABS: Band 11 % (5-11); Eosinophils 9 % (0-10); Lymphocytes 3 % (21-51); MDiff Complete? YES; Monocytes 8 % (0-10); Neutrophil 69 % (42-75); Ovalocytes SLIGHT = 2-5 cells (100X) (0-1/hpf); Platelet Morphology Comment Appears Adequate; Vacuoles SLIGHT
--- NOTE | 2018-12-26 12:28 | PRG ---
DATE OF SERVICE: 12/26/2018 SUBJECTIVE: This morning, he is awake, alert, and responsive. He has retained secretions. OBJECTIVE: VITAL SIGNS: Temperature 98, pulse 116, respiratory rate _20_, and blood pressure 130/70. CHEST: Extensive rhonchi, crackles. CARDIAC: Normal S1 and S2. No gallops. ABDOMEN: No mass. LABORATORY DATA: White count 26,000. Lytes are normal. ASSESSMENT AND PLAN: Status post trach, status post retained secretions. The patient needs scheduled neb treatments ordered. Continue supportive care, PT. We will follow. Job ID: [id number] [facility]
--- NOTE | 2018-12-26 15:21 | PDOC.HOSPP ---
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 Started on antibiotics and bronchodilators for sepsis and COPD exacerbation with some improvement. Still having some bleeding from excoriation of mouth floor cancer as well as from tracheostomy. Oral intake is fair. No new problem. radiation therapy planning is in progress - Objective Vital Signs & Weight: Vital Signs (12 hours) Temp Pulse Resp BP Pulse Ox 12/26/18 13:00 116 H 20 12/26/18 08:12 98.2 F 116 H 24 H 137/70 93 L 12/26/18 08:00 93 L 12/26/18 06:50 92 L 12/26/18 06:10 80 28 H Weight Admit Weight 184 lb 8 oz Weight 185 lb 3.013 oz Most Recent Monitor Data Heart Rate from ECG 118 NIBP 153/101 NIBP BP-Mean 118 Respiration from ECG 25 SpO2 100 I&O: 12/25/18 12/26/18 12/27/18 06:59 06:59 06:59 Intake Total 1911 750 Output Total 1000 460 Balance 911 290 Result Diagrams: 12/26/18 08:35 12/26/18 08:36 Hospitalist ROS - Medication Medications: Active Medications Generic Name Dose Route Start Last Admin Trade Name Freq PRN Reason Stop Dose Admin Acetaminophen 650 mg 12/17/18 17:28 12/22/18 15:20 Tylenol PO 650 mg Q4H PRN Administration Headache/Fever/Mild Pain (1-3) Albuterol/Ipratropium 3 ml 12/17/18 19:00 12/26/18 13:00 Duoneb NEB 3 ml [id number] ALANIS Administration Amoxicillin/Clavulanate Potassium 875 mg 12/21/18 21:00 12/26/18 07:57 Augmentin PO 875 mg Q12HR ALANIS Administration Fentanyl 50 mcg 12/21/18 16:00 12/24/18 16:27 Duragesic TD 50 mcg Q3D ALANIS Administration Lidocaine 2 patch 12/21/18 09:00 12/26/18 07:58 Lidoderm 5% Patch TD 2 patch DAILY ALANIS Administration Miscellaneous Medication 1 each 12/21/18 21:00 12/25/18 22:27 Lidocaine Patch Removal TOP 1 each 2100 ALANIS Administration Morphine Sulfate 4 mg 12/21/18 20:30 12/26/18 12:47 Morphine SLOW IVP 4 mg Q2H PRN Administration Moderate Pain (4-6) Polyethylene Glycol 17 gm 12/20/18 21:00 12/26/18 07:57 Miralax PO 17 gm BID ALANIS Administration Prednisone 40 mg 12/25/18 08:00 12/26/18 07:57 Prednisone PO 40 mg QAM-WM ALANIS Administration Sodium Chloride 10 ml 12/17/18 17:28 12/25/18 08:00 Flush - Normal Saline IVF 10 ml PRN PRN Administration Saline Flush - Exam General Appearance: awake alert Eye: anicteric sclera ENT: normocephalic atraumatic Neck - other findings: tach with T collar. Heart: RRR Respiratory - other findings: fair air entry with some transmitted sound Gastrointestinal: soft, non-tender, non-distended, normal bowel sounds Extremities: no edema Neurological: cranial nerve grossly intact, no new deficit Neurological - other findings: moves all limbs Psychiatric: A&O x 3 Hosp A/P (1) Acute respiratory failure with hypoxia Code(s): J96.01 - ACUTE RESPIRATORY FAILURE WITH HYPOXIA Status: Acute (2) Sepsis Code(s): A41.9 - SEPSIS, UNSPECIFIED ORGANISM Status: Acute (3) COPD with acute exacerbation Code(s): J44.1 - CHRONIC OBSTRUCTIVE PULMONARY DISEASE W (ACUTE) EXACERBATION Status: Acute (4) Hypokalemia Code(s): E87.6 - HYPOKALEMIA Status: Acute (5) Hyponatremia Code(s): E87.1 - HYPO-OSMOLALITY AND HYPONATREMIA Status: Acute (6) Pneumonia Code(s): J18.9 - PNEUMONIA, UNSPECIFIED ORGANISM Status: Acute (7) Stage 4 lung cancer Code(s): C34.90 - MALIGNANT NEOPLASM OF UNSP PART OF UNSP BRONCHUS OR LUNG Status: Chronic (8) Tracheostomy complication, unspecified Code(s): J95.00 - UNSPECIFIED TRACHEOSTOMY COMPLICATION Status: Acute (9) Tracheostomy care Code(s): Z43.0 - ENCOUNTER FOR ATTENTION TO TRACHEOSTOMY Status: Acute (10) Dehydration Code(s): E86.0 - DEHYDRATION Status: Acute (11) Cancer of floor of mouth Status: Acute (12) Constipation Code(s): K59.00 - CONSTIPATION, UNSPECIFIED Status: Acute (13) Back pain Code(s): M54.9 - DORSALGIA, UNSPECIFIED Status: Acute (14) Leucocytosis Code(s): D72.829 - ELEVATED WHITE BLOOD CELL COUNT, UNSPECIFIED Status: Acute (15) Laryngeal cancer Status: Acute (16) Stable burst fracture of T11 vertebra Code(s): S22.081A - STABLE BURST FRACTURE OF T11-T12 VERTEBRA, INIT FOR CLOS FX Status: Acute (17) Central stenosis of spinal canal Code(s): M48.00 - SPINAL STENOSIS, SITE UNSPECIFIED Status: Acute - Plan Continue antibiotics and bronchodilators Steroid as per Pulmonary. Continue PT/OT For radiation therapy during this admission due to severe canal stenosis. For chemotherapy once discharge planned
[2018-12-26] MEDS: Lidocaine Patch Removal 1 EACH TOP SCH (20:33)
[2018-12-27] MEDS: Morphine 4 MG/ML VIAL SLOW IVP PRN ×10 (01:26→22:29)
[2018-12-27 06:30] LABS: Band 35 % (5-11); Eosinophils 4 % (0-10); Hemoglobin 12.4 g/dL (14.0-18.0); MDiff Complete? YES; Mean Corpuscular HGB CONC 32.1 g/dL (32.0-36.0); Mean Corpuscular Hemoglobin 32.4 pg (27.0-31.0); Mean Platelet Volume 7.6 fL (7.4-10.4); Monocytes 2 % (0-10); Neutrophil 59 % (42-75); Platelet Count 270 thou/uL (130-400); Platelet Morphology Comment Appears Adequate; RBC Distribution Width 13.6 % (11.5-14.5); Red Blood Cell (RBC) Count 3.82 mill/uL (4.70-6.10); White Blood Cell (WBC) Count 29.7 thou/uL (4.8-10.8)
[2018-12-27 06:35] LABS: Anion Gap 11 mmol/L (10-20); BUN (Urea Nitrogen) 19 mg/dL (8.4-25.7); Calc. Creatinine Clearance 117 mL/min (70-130); Calcium 9.8 mg/dL (7.8-10.44); Carbon Dioxide 35 mmol/L (23-31); Chloride 93 mmol/L (98-107); Estimated GFR-MDRD Greater than 90; Glucose 120 mg/dL (80-115); Potassium 3.5 mmol/L (3.5-5.1); Sodium 135 mmol/L (136-145)
--- NOTE | 2018-12-27 07:56 | PDOC.HOSPP ---
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 Started on antibiotics and bronchodilators for sepsis and COPD exacerbation with some improvement. Still having some bleeding from excoriation of mouth floor cancer as well as from tracheostomy. No new problem. Radiation therapy is to start tomorrow - Objective Vital Signs & Weight: Vital Signs (12 hours) Temp Pulse Resp BP BP Pulse Ox 12/27/18 07:22 98.5 F 113 H 20 112/60 92 L 12/27/18 07:04 92 L 12/27/18 06:30 115 H 24 H 12/27/18 04:00 97.7 F 116 H 22 H 143/77 H 93 L 12/27/18 00:37 99.0 F 107 H 20 121/57 L 91 L 12/27/18 00:22 108 H 24 H 95 12/26/18 20:50 90 L Weight Admit Weight 184 lb 8 oz Weight 185 lb 3.013 oz Most Recent Monitor Data Heart Rate from ECG 118 NIBP 153/101 NIBP BP-Mean 118 Respiration from ECG 25 SpO2 100 I&O: 12/26/18 12/27/18 12/28/18 06:59 06:59 06:59 Intake Total 750 1360 120 Output Total 460 375 Balance 290 985 120 Result Diagrams: 12/27/18 06:00 12/27/18 06:00 Hospitalist ROS - Medication Medications: Active Medications Generic Name Dose Route Start Last Admin Trade Name Freq PRN Reason Stop Dose Admin Acetaminophen 650 mg 12/17/18 17:28 12/22/18 15:20 Tylenol PO 650 mg Q4H PRN Administration Headache/Fever/Mild Pain (1-3) Albuterol/Ipratropium 3 ml 12/17/18 19:00 12/27/18 06:30 Duoneb NEB 3 ml [id number] ALANIS Administration Amoxicillin/Clavulanate Potassium 875 mg 12/21/18 21:00 12/26/18 20:33 Augmentin PO 875 mg Q12HR ALANIS Administration Fentanyl 50 mcg 12/21/18 16:00 12/24/18 16:27 Duragesic TD 50 mcg Q3D ALANIS Administration Lidocaine 2 patch 12/21/18 09:00 12/26/18 07:58 Lidoderm 5% Patch TD 2 patch DAILY ALANIS Administration Miscellaneous Medication 1 each 12/21/18 21:00 12/26/18 20:33 Lidocaine Patch Removal TOP 1 each 2100 ALANIS Administration Morphine Sulfate 4 mg 12/21/18 20:30 12/27/18 06:37 Morphine SLOW IVP 4 mg Q2H PRN Administration Moderate Pain (4-6) Polyethylene Glycol 17 gm 12/20/18 21:00 12/26/18 23:18 Miralax PO Not Given BID ALANIS Prednisone 40 mg 12/25/18 08:00 12/26/18 07:57 Prednisone PO 40 mg QAM-WM ALANIS Administration Sodium Chloride 10 ml 12/17/18 17:28 12/27/18 06:38 Flush - Normal Saline IVF 10 ml PRN PRN Administration Saline Flush - Exam General Appearance: awake alert Eye: anicteric sclera ENT: normocephalic atraumatic Neck - other findings: Trach with trach collar Heart: RRR Heart - other findings: tachycardic Respiratory - other findings: fair air entry with transmitted breath sound Gastrointestinal: soft, non-tender, normal bowel sounds Gastrointestinal - other findings: enlarged Extremities: no cyanosis, no edema Neurological: cranial nerve grossly intact, no focal deficits Psychiatric: A&O x 3 Hosp A/P (1) Acute respiratory failure with hypoxia Code(s): J96.01 - ACUTE RESPIRATORY FAILURE WITH HYPOXIA Status: Acute (2) Sepsis Code(s): A41.9 - SEPSIS, UNSPECIFIED ORGANISM Status: Acute (3) COPD with acute exacerbation Code(s): J44.1 - CHRONIC OBSTRUCTIVE PULMONARY DISEASE W (ACUTE) EXACERBATION Status: Acute (4) Hypokalemia Code(s): E87.6 - HYPOKALEMIA Status: Acute (5) Hyponatremia Code(s): E87.1 - HYPO-OSMOLALITY AND HYPONATREMIA Status: Acute (6) Pneumonia Code(s): J18.9 - PNEUMONIA, UNSPECIFIED ORGANISM Status: Acute (7) Stage 4 lung cancer Code(s): C34.90 - MALIGNANT NEOPLASM OF UNSP PART OF UNSP BRONCHUS OR LUNG Status: Chronic (8) Tracheostomy complication, unspecified Code(s): J95.00 - UNSPECIFIED TRACHEOSTOMY COMPLICATION Status: Acute (9) Tracheostomy care Code(s): Z43.0 - ENCOUNTER FOR ATTENTION TO TRACHEOSTOMY Status: Acute (10) Dehydration Code(s): E86.0 - DEHYDRATION Status: Acute (11) Cancer of floor of mouth Status: Acute (12) Constipation Code(s): K59.00 - CONSTIPATION, UNSPECIFIED Status: Acute (13) Back pain Code(s): M54.9 - DORSALGIA, UNSPECIFIED Status: Acute (14) Leucocytosis Code(s): D72.829 - ELEVATED WHITE BLOOD CELL COUNT, UNSPECIFIED Status: Acute (15) Laryngeal cancer Status: Acute (16) Stable burst fracture of T11 vertebra Code(s): S22.081A - STABLE BURST FRACTURE OF T11-T12 VERTEBRA, INIT FOR CLOS FX Status: Acute (17) Central stenosis of spinal canal Code(s): M48.00 - SPINAL STENOSIS, SITE UNSPECIFIED Status: Acute - Plan Increase laxative to prevent constipation Continue antibiotics, steroid and bronchodilators For radiation therapy tomorrow for severe canal stenosis. For chemotherapy once discharge planned
[2018-12-27] MEDS: predniSONE 20 MG TAB PO SCH (08:30)
[2018-12-27] MEDS: Lidocaine 5% Patch TD SCH (09:26)
[2018-12-27] MEDS: Amoxicillin/Potassium Clav 875 MG TAB PO SCH ×2 (09:27→19:49)
[2018-12-27] MEDS: Polyethylene Glycol 3350 17 GM Packet PO SCH ×2 (09:27→20:06)
--- NOTE | 2018-12-27 12:49 | PRG ---
DATE OF SERVICE: 12/27/2018 SUBJECTIVE: This morning, he is sitting on the side of the bed. No distress. OBJECTIVE: VITAL SIGNS: Temperature 98, pulse 90, respirations 20, saturations are 98%, and blood pressure 112/60. CHEST: Rhonchi. No wheezing. CARDIAC: Normal S1 and S2. No gallops. ABDOMEN: No masses. LABORATORY DATA: White count is still 29,000. ASSESSMENT: 1. Head and neck cancer, status post trach. 2. Aspiration pneumonia. 3. Leukocytosis. 4. Abnormal chest x-ray. PLAN: He is on Augmentin, steroids. Continue present treatment. We will follow. Job ID: [id number]
[2018-12-27] MEDS: fentaNYL 50 mcg/hour Patch TD SCH (15:46)
[2018-12-27] MEDS: Senokot S 8.6-50 MG TAB PO SCH (20:07)
[2018-12-27] MEDS: Lidocaine Patch Removal 1 EACH TOP SCH (20:23)
[2018-12-28] MEDS: Morphine 4 MG/ML VIAL SLOW IVP PRN ×9 (00:33→22:21)
[2018-12-28] MEDS: predniSONE 20 MG TAB PO SCH (08:02)
[2018-12-28] MEDS: Lidocaine 5% Patch TD SCH (08:02)
[2018-12-28] MEDS: Amoxicillin/Potassium Clav 875 MG TAB PO SCH ×2 (08:02→20:32)
[2018-12-28] MEDS: Senokot S 8.6-50 MG TAB PO SCH ×2 (08:29→20:21)
[2018-12-28] MEDS: Polyethylene Glycol 3350 17 GM Packet PO SCH ×2 (08:29→20:21)
--- NOTE | 2018-12-28 11:30 | PRG ---
DATE OF SERVICE: 12/28/2018 SUBJECTIVE: Kraig Hernández is pretty much the same. OBJECTIVE: VITAL SIGNS: Heart rate 106, respiratory rate in the 20s, oximetry on trach collar is 92. Still has secretion issues, but he has an excellent cough. LUNGS: Remarkable for mild rhonchi. HEART: Regular rhythm. ABDOMEN: Soft. LABORATORY DATA: White count 29.7, hemoglobin 12.4, platelets 270,000. Yesterday sodium 135, potassium 3.5, chloride 93, bicarb 35, BUN 19, creatinine 0.75. IMPRESSION: 1. Lung cancer. 2. Head and neck cancer. 3. Mouth cancer. clinically improving. Chest x-ray from the showed no change. Continue supportive care, apparently he can only get chemo as an outpatient. His prednisone probably should be tapered to 20 mg a day at discharge. Job ID: [id number]
[2018-12-28 15:25] VITALS: BMI 29.0
--- NOTE | 2018-12-28 16:44 | PDOC.EVN ---
Event Note - Event Note Event Note: Came to see patient at approximately 14:00. He was in radiation treatment. reported stable prior to this by nursing staff.
[2018-12-28] MEDS: Lidocaine Patch Removal 1 EACH TOP SCH (20:32)
[2018-12-29] MEDS: Morphine 4 MG/ML VIAL SLOW IVP PRN ×12 (00:13→23:30)
[2018-12-29] MEDS: predniSONE 20 MG TAB PO SCH (09:41)
[2018-12-29] MEDS: Amoxicillin/Potassium Clav 875 MG TAB PO SCH ×2 (09:42→20:45)
[2018-12-29] MEDS: Polyethylene Glycol 3350 17 GM Packet PO SCH ×2 (09:45→20:45)
[2018-12-29] MEDS: Senokot S 8.6-50 MG TAB PO SCH ×2 (09:45→20:45)
[2018-12-29 10:40] LABS: Hemoglobin 11.4 g/dL (14.0-18.0); Mean Corpuscular HGB CONC 32.9 g/dL (32.0-36.0); Mean Corpuscular Hemoglobin 32.6 pg (27.0-31.0); Mean Platelet Volume 7.5 fL (7.4-10.4); Platelet Count 250 thou/uL (130-400); RBC Distribution Width 13.5 % (11.5-14.5); Red Blood Cell (RBC) Count 3.51 mill/uL (4.70-6.10); White Blood Cell (WBC) Count 23.6 thou/uL (4.8-10.8)
[2018-12-29] MEDS: Lidocaine 5% Patch TD SCH (10:40)
[2018-12-29 11:02] LABS: Anion Gap 14 mmol/L (10-20); BUN (Urea Nitrogen) 16 mg/dL (8.4-25.7); Calc. Creatinine Clearance 131 mL/min (70-130); Calcium 9.6 mg/dL (7.8-10.44); Carbon Dioxide 34 mmol/L (23-31); Chloride 93 mmol/L (98-107); Estimated GFR-MDRD Greater than 90; Glucose 100 mg/dL (80-115); Potassium 3.4 mmol/L (3.5-5.1); Sodium 138 mmol/L (136-145)
[2018-12-29 11:06] LABS: Band 38 % (5-11); Eosinophils 12 % (0-10); Lymphocytes 1 % (21-51); MDiff Complete? YES; Metamyelocyte 1 % (0-0); Monocytes 6 % (0-10); Neutrophil 39 % (42-75); Platelet Morphology Comment Appears Adequate; Polychromasia SLIGHT = 2-3 cells (100X) (0-2/hpf); Reactive Lymphocytes 3 % (0-10); Vacuoles MODERATE
--- NOTE | 2018-12-29 17:18 | PDOC.HOSPP ---
- Subjective Encounter Date: 12/29/18 Encounter Time: 11:45 Subjective: Mr. Hernández was seen today in follow-up of head and neck cancer as well as stage 4 lung cancer. He says the bleeding from his mouth has been about the same. He is breathing ok. - Objective Vital Signs & Weight: Vital Signs (12 hours) Temp Pulse Resp BP Pulse Ox 12/29/18 13:33 114 H 25 H 92 L 12/29/18 08:00 98.0 F 114 H 20 141/74 H 91 L 12/29/18 07:25 116 H 22 H 90 L Weight Admit Weight 184 lb 8 oz Weight 185 lb 3.013 oz Most Recent Monitor Data Heart Rate from ECG 118 NIBP 153/101 NIBP BP-Mean 118 Respiration from ECG 25 SpO2 100 I&O: 12/28/18 12/29/18 12/30/18 06:59 06:59 06:59 Intake Total 625 1500 Output Total 425 250 Balance 200 1250 Result Diagrams: 12/29/18 10:15 12/29/18 10:15 Hospitalist ROS - Medication Medications: Active Medications Generic Name Dose Route Start Last Admin Trade Name Freq PRN Reason Stop Dose Admin Acetaminophen 650 mg 12/17/18 17:28 12/22/18 15:20 Tylenol PO 650 mg Q4H PRN Administration Headache/Fever/Mild Pain (1-3) Albuterol/Ipratropium 3 ml 12/17/18 19:00 12/29/18 13:33 Duoneb NEB 3 ml [id number] ALANIS Administration Amoxicillin/Clavulanate Potassium 875 mg 12/21/18 21:00 12/29/18 09:42 Augmentin PO 875 mg Q12HR ALANIS Administration Fentanyl 50 mcg 12/21/18 16:00 12/27/18 15:46 Duragesic TD 50 mcg Q3D ALANIS Administration Lidocaine 2 patch 12/21/18 09:00 12/29/18 10:40 Lidoderm 5% Patch TD 2 patch DAILY ALANIS Administration Miscellaneous Medication 1 each 12/21/18 21:00 12/28/18 20:32 Lidocaine Patch Removal TOP 1 each 2100 ALANIS Administration Morphine Sulfate 4 mg 12/21/18 20:30 12/29/18 16:45 Morphine SLOW IVP 4 mg Q2H PRN Administration Moderate Pain (4-6) Polyethylene Glycol 17 gm 12/20/18 21:00 12/29/18 09:45 Miralax PO Not Given BID ALANIS Prednisone 40 mg 12/25/18 08:00 12/29/18 09:41 Prednisone PO 40 mg QAM-WM ALANIS Administration Senna/Docusate Sodium 1 tab 12/27/18 21:00 12/29/18 09:45 Senokot S PO Not Given BID ALANIS Sodium Chloride 10 ml 12/17/18 17:28 12/28/18 18:09 Flush - Normal Saline IVF 10 ml PRN PRN Administration Saline Flush - Exam Eye: PERRL, anicteric sclera Heart: RRR, no murmur, no gallops, no rubs, normal peripheral pulses Respiratory: no rales, no ronchi, normal chest expansion, wheezes (+ occassional wheeze, no rhonchi) Gastrointestinal: soft, non-tender, non-distended, normal bowel sounds, no palpable masses, no hepatomegaly, no splenomegaly Extremities: no cyanosis, no clubbing, no edema Hosp A/P (1) Healthcare-associated pneumonia Code(s): J18.9 - PNEUMONIA, UNSPECIFIED ORGANISM Status: Acute (2) Acute respiratory failure with hypoxia Code(s): J96.01 - ACUTE RESPIRATORY FAILURE WITH HYPOXIA Status: Acute (3) Stage 4 lung cancer Code(s): C34.90 - MALIGNANT NEOPLASM OF UNSP PART OF UNSP BRONCHUS OR LUNG Status: Chronic (4) Tracheostomy care Code(s): Z43.0 - ENCOUNTER FOR ATTENTION TO TRACHEOSTOMY Status: Acute - Plan * Acute respiratory failure- stable * Stage 4 Lung Cancer- he has a metastatic foci in the thoracic spine, and is currently receiving radiation for this * Head and neck cancer- stable bleeding * Continue to mobilize as much as possible
[2018-12-29] MEDS: Lidocaine Patch Removal 1 EACH TOP SCH (20:46)
[2018-12-30] MEDS: Morphine 4 MG/ML VIAL SLOW IVP PRN ×8 (01:55→17:51)
[2018-12-30] MEDS: Amoxicillin/Potassium Clav 875 MG TAB PO SCH (08:09)
[2018-12-30] MEDS: Senokot S 8.6-50 MG TAB PO SCH ×2 (08:09→22:08)
[2018-12-30] MEDS: Lidocaine 5% Patch TD SCH (08:09)
[2018-12-30] MEDS: predniSONE 20 MG TAB PO SCH (08:09)
[2018-12-30] MEDS: Polyethylene Glycol 3350 17 GM Packet PO SCH ×2 (08:15→22:08)
--- NOTE | 2018-12-30 10:22 | PRG ---
DATE OF SERVICE: 12/30/2018 Kraig Hernández is getting radiotherapy. He has no new problems reported. Heart rate 108, he is afebrile, respiratory rate 22, oximetry is 94% on his trach collar, blood pressure 140/77. Overall, he is clinically stable. He continues with inpatient radiation treatment to his mouth. His prednisone can be tapered. I believe he had an adequate course of antimicrobial therapy, so his Augmentin stopped. We will continue supportive care. Job ID: [id number]
[2018-12-30 12:01] LABS: Anion Gap 15 mmol/L (10-20); BUN (Urea Nitrogen) 18 mg/dL (8.4-25.7); Calc. Creatinine Clearance 131 mL/min (70-130); Calcium 9.7 mg/dL (7.8-10.44); Carbon Dioxide 33 mmol/L (23-31); Chloride 93 mmol/L (98-107); Estimated GFR-MDRD Greater than 90; Glucose 109 mg/dL (80-115); Potassium 3.5 mmol/L (3.5-5.1); Sodium 137 mmol/L (136-145)
[2018-12-30] MEDS ORDERED: HYDROcodone/Acetaminophen 5/325 mg Tablet PO PRN (15:30)
--- NOTE | 2018-12-30 15:33 | PDOC.HOSPP ---
- Subjective Encounter Date: 12/30/18 Encounter Time: 15:31 Subjective: Mr. Hernández was seen today in follow-up of head and neck cancer, and Stage 4 lung cancer. He notes increased bleeding from his mouth, but he says this is common. He notes some dyspnea in the morning. - Objective Vital Signs & Weight: Vital Signs (12 hours) Temp Pulse Resp BP Pulse Ox 12/30/18 12:10 98.0 F 112 H 22 H 134/75 94 L 12/30/18 08:00 98.1 F 108 H 22 H 140/77 94 L 12/30/18 07:46 105 H 24 H 90 L Weight Admit Weight 184 lb 8 oz Weight 185 lb 3.013 oz Most Recent Monitor Data Heart Rate from ECG 118 NIBP 153/101 NIBP BP-Mean 118 Respiration from ECG 25 SpO2 100 I&O: 12/29/18 12/30/18 12/31/18 06:59 06:59 06:59 Intake Total 1500 720 Output Total 250 500 Balance 1250 220 Result Diagrams: 12/29/18 10:15 12/30/18 11:20 Hospitalist ROS - Medication Medications: Active Medications Generic Name Dose Route Start Last Admin Trade Name Freq PRN Reason Stop Dose Admin Acetaminophen 650 mg 12/17/18 17:28 12/22/18 15:20 Tylenol PO 650 mg Q4H PRN Administration Headache/Fever/Mild Pain (1-3) Albuterol/Ipratropium 3 ml 12/17/18 19:00 12/30/18 13:30 Duoneb NEB 3 ml [id number] ALANIS Administration Fentanyl 50 mcg 12/21/18 16:00 12/27/18 15:46 Duragesic TD 50 mcg Q3D ALANIS Administration Lidocaine 2 patch 12/21/18 09:00 12/30/18 08:09 Lidoderm 5% Patch TD 2 patch DAILY ALANIS Administration Miscellaneous Medication 1 each 12/21/18 21:00 12/29/18 20:46 Lidocaine Patch Removal TOP 1 each 2100 ALANIS Administration Morphine Sulfate 4 mg 12/21/18 20:30 12/30/18 13:21 Morphine SLOW IVP 4 mg Q2H PRN Administration Moderate Pain (4-6) Polyethylene Glycol 17 gm 12/20/18 21:00 12/30/18 08:15 Miralax PO Not Given BID ALANIS Senna/Docusate Sodium 1 tab 12/27/18 21:00 12/30/18 08:09 Senokot S PO 1 tab BID ALANIS Administration Sodium Chloride 10 ml 12/17/18 17:28 12/28/18 18:09 Flush - Normal Saline IVF 10 ml PRN PRN Administration Saline Flush - Exam Eye: PERRL, anicteric sclera ENT: normocephalic atraumatic (+ blood oozing from the floor of his mouth) Heart: RRR, no murmur, no gallops, no rubs, normal peripheral pulses Respiratory: no rales, no ronchi, normal chest expansion, wheezes (+ mild bilateral wheeze) Gastrointestinal: soft, non-tender, non-distended, normal bowel sounds, no palpable masses, no hepatomegaly Hosp A/P (1) Healthcare-associated pneumonia Code(s): J18.9 - PNEUMONIA, UNSPECIFIED ORGANISM Status: Acute (2) Acute respiratory failure with hypoxia Code(s): J96.01 - ACUTE RESPIRATORY FAILURE WITH HYPOXIA Status: Acute (3) Stage 4 lung cancer Code(s): C34.90 - MALIGNANT NEOPLASM OF UNSP PART OF UNSP BRONCHUS OR LUNG Status: Chronic (4) Tracheostomy care Code(s): Z43.0 - ENCOUNTER FOR ATTENTION TO TRACHEOSTOMY Status: Acute - Plan * Thoracic Spinal stenosis- continue local radiation * Acute respiratory failure- improved- antibiotics have been discontinued, and prednisone will be tappered * Stage 4 Lung Cancer- he has a metastatic foci in the thoracic spine, * Head and neck cancer- will try viscous lidocaine * Continue to mobilize as much as possible
[2018-12-30] MEDS: fentaNYL 50 mcg/hour Patch TD SCH (17:45)
[2018-12-30] MEDS: Lidocaine Viscous Sol 2% 15 ml UD Cup SSP SCH ×6 (17:52→21:48)
[2018-12-30] MEDS ORDERED: fentaNYL Citrate/PF 2,000 MCG in Sodium Chloride 0.9% 60 ML IV PRN (19:32)
[2018-12-30] MEDS ORDERED: Naloxone HCl 0.4 mg/ml Vial IV PRN (19:32)
[2018-12-30] MEDS ORDERED: Morphine 2 MG/ML SYRINGE SLOW IVP PRN (19:47)
[2018-12-30] MEDS: Lidocaine Patch Removal 1 EACH TOP SCH (22:09)
[2018-12-31] MEDS: Lidocaine Viscous Sol 2% 15 ml UD Cup SSP SCH ×3 (01:31→05:20)
[2018-12-31] MEDS ORDERED: fentaNYL Citrate/PF 2,000 MCG in Sodium Chloride 0.9% 60 ML IV PRN (08:30)
[2018-12-31] MEDS: predniSONE 20 MG TAB PO SCH (08:58)
[2018-12-31] MEDS: Senokot S 8.6-50 MG TAB PO SCH ×2 (08:58→21:38)
[2018-12-31] MEDS: Lidocaine 5% Patch TD SCH (09:01)
[2018-12-31] MEDS: Polyethylene Glycol 3350 17 GM Packet PO SCH ×2 (09:12→21:38)
[2018-12-31] MEDS: Lidocaine Viscous Sol 2% 15 ml UD Cup SSP PRN (09:13)
[2018-12-31] MEDS ORDERED: traMADol HCl 50 MG TAB PO PRN (10:12)
[2018-12-31] MEDS ORDERED: Morphine 2 MG/ML SYRINGE SLOW IVP SCH (10:15)
[2018-12-31] MEDS: fentaNYL 50 mcg/hour Patch TD SCH (11:09)
[2018-12-31] MEDS: Acetaminophen 325 MG TAB PO SCH ×2 (13:09→18:30)
--- NOTE | 2018-12-31 13:51 | PDOC.HOSPP ---
- Subjective Encounter Date: 12/31/18 Encounter Time: 13:49 Subjective: Mr. Hernández was seen today in follow-up of stage 4 lung cancer, and head and neck cancer. He does not have any complaints. Mouth bleeding is a little better today. - Objective Vital Signs & Weight: Vital Signs (12 hours) Temp Pulse Resp BP BP Pulse Ox 12/31/18 13:26 107 H 20 94 L 12/31/18 08:00 93 L 12/31/18 07:35 93 L 12/31/18 07:32 98.8 F 107 H 20 135/65 93 L 12/31/18 03:49 98.5 F 107 H 16 135/73 95 Weight Admit Weight 184 lb 8 oz Weight 185 lb 3.013 oz Most Recent Monitor Data Heart Rate from ECG 118 NIBP 153/101 NIBP BP-Mean 118 Respiration from ECG 25 SpO2 100 I&O: 12/30/18 12/31/18 01/01/19 06:59 06:59 06:59 Intake Total 720 960 Output Total 500 850 Balance 220 110 Result Diagrams: 12/29/18 10:15 12/30/18 11:20 Hospitalist ROS - Medication Medications: Active Medications Generic Name Dose Route Start Last Admin Trade Name Freq PRN Reason Stop Dose Admin Acetaminophen 650 mg 12/31/18 12:00 12/31/18 13:09 Tylenol PO 01/02/19 12:01 650 mg Q6HR ALANIS Administration Albuterol/Ipratropium 3 ml 12/17/18 19:00 12/31/18 13:26 Duoneb NEB 3 ml [id number] ALANIS Administration Fentanyl 50 mcg 12/31/18 12:00 12/31/18 11:09 Duragesic TD 50 mcg Q3D ALANIS Administration Lidocaine 2 patch 12/21/18 09:00 12/31/18 09:01 Lidoderm 5% Patch TD 2 patch DAILY ALANIS Administration Lidocaine HCl 15 ml 12/31/18 01:32 12/31/18 09:13 Xylocaine 2% Viscous SSP 15 ml Q1H PRN Administration ORAL IRRITATION Miscellaneous Medication 1 each 12/21/18 21:00 12/30/18 22:09 Lidocaine Patch Removal TOP 1 each 2100 ALANIS Administration Polyethylene Glycol 17 gm 12/20/18 21:00 12/31/18 09:12 Miralax PO 17 gm BID ALANIS Administration Prednisone 20 mg 12/31/18 08:00 12/31/18 08:58 Prednisone PO 20 mg QAM-WM ALANIS Administration Senna/Docusate Sodium 1 tab 12/27/18 21:00 12/31/18 08:58 Senokot S PO 1 tab BID ALANIS Administration Sodium Chloride 10 ml 12/17/18 17:28 12/28/18 18:09 Flush - Normal Saline IVF 10 ml PRN PRN Administration Saline Flush - Exam Eye: PERRL Heart: RRR, no murmur, no gallops, no rubs, normal peripheral pulses Respiratory: CTAB, no wheezes, no rales, no ronchi, normal chest expansion Gastrointestinal: soft, non-tender, normal bowel sounds, no palpable masses, no hepatomegaly, no bruit, distended (and tympanic to percussion) Extremities: 1+ LE edema Hosp A/P (1) Healthcare-associated pneumonia Code(s): J18.9 - PNEUMONIA, UNSPECIFIED ORGANISM Status: Acute (2) Acute respiratory failure with hypoxia Code(s): J96.01 - ACUTE RESPIRATORY FAILURE WITH HYPOXIA Status: Acute (3) Stage 4 lung cancer Code(s): C34.90 - MALIGNANT NEOPLASM OF UNSP PART OF UNSP BRONCHUS OR LUNG Status: Chronic (4) Tracheostomy care Code(s): Z43.0 - ENCOUNTER FOR ATTENTION TO TRACHEOSTOMY Status: Acute - Plan * Thoracic Spinal stenosis- continue local radiation * Acute respiratory failure- stable * Stage 4 Lung Cancer- he has a metastatic foci in the thoracic spine, * Head and neck cancer- continue symptom management for now, and plan is for chemotherapy after discharge * Continue to mobilize as much as possible
[2018-12-31] MEDS: Morphine Sulfate 100 MG in Dextrose 5% in Water 98 ML IV SCH (14:42)
--- NOTE | 2018-12-31 15:45 | PQF ---
CLINICAL DOCUMENTATION IMPROVEMENT CLARIFICATION FORM: ICD-10 Updated PLEASE DO AN ADDENDUM TO THE PROGRESS NOTE WITH ANY DOCUMENTATION UPDATES OR ADDITIONS AND CARRY THROUGH TO DC SUMMARY. THANK YOU. DATE: 12/31/2018; 01/01/2019; 01/04/2019 ATTN: Dr. Florez/ Dr. Cutler Please exercise your independent, professional judgment in responding to the clarification form. Clinical indicators are provided on the bottom of this form for your review Please check appropriate box(s) to clarify if the following diagnosis has been ruled in or ruled out: SEPSIS [X ] Ruled in diagnosis [X ] Continue to treat [ ] Resolved [ ] Ruled out diagnosis [ ] Cannot rule out diagnosis [ ] Other diagnosis [ ] Unable to determine In addition, please specify: Present on Admission (POA): [ X ] Yes [ ] No [ ] Unable to determine For continuity of documentation, please document condition throughout progress notes and discharge summary. Thank You. CLINICAL INDICATORS - SIGNS / SYMPTOMS / LABS H&P 12/17: WBC 20.6 BP 146/82, pulse 118, resp. 28, 100%on nonrebreather. PN 12/18: Sepsis PN 12/27: Started on antibiotics and bronchodilators for sepsis and COPD exacerbation with some improvement. RISKS: H&P 12/17/2018: Advanced lung cancer with metastases and hypoxia. Tracheostomy for head and neck cancer. TREATMENT: Order 12/17-12/21: Vancomycin IV Order 12/17-12/21: Zosyn IV 4.5 gm q6 hr Order 12/21-12/30: Augmentin 875 mg PO q 12hr Thank you, Xochitl (This form is maintained as a part of the permanent medical record) 2014 [employer]. All Rights Reserved Xochitl Guy RN, BSN [email or web address] Office: [phone] [email or web address]
[2018-12-31] MEDS: Lidocaine Patch Removal 1 EACH TOP SCH (21:39)
[2019-01-01] MEDS: Acetaminophen 325 MG TAB PO SCH ×2 (00:53→05:47)
[2019-01-01 05:21] LABS: Anion Gap 14 mmol/L (10-20); BUN (Urea Nitrogen) 15 mg/dL (8.4-25.7); Calc. Creatinine Clearance 139 mL/min (70-130); Calcium 9.3 mg/dL (7.8-10.44); Carbon Dioxide 32 mmol/L (23-31); Chloride 96 mmol/L (98-107); Estimated GFR-MDRD Greater than 90; Glucose 100 mg/dL (80-115); Potassium 3.3 mmol/L (3.5-5.1); Sodium 139 mmol/L (136-145)
[2019-01-01 05:50] LABS: Band 36 % (5-11); Eosinophils 21 % (0-10); Hemoglobin 11.1 g/dL (14.0-18.0); Lymphocytes 3 % (21-51); MDiff Complete? YES; Mean Corpuscular HGB CONC 33.3 g/dL (32.0-36.0); Mean Corpuscular Hemoglobin 33.3 pg (27.0-31.0); Mean Platelet Volume 7.3 fL (7.4-10.4); Monocytes 2 % (0-10); Neutrophil 38 % (42-75); Platelet Count 232 thou/uL (130-400); RBC Distribution Width 13.6 % (11.5-14.5); Red Blood Cell (RBC) Count 3.32 mill/uL (4.70-6.10); White Blood Cell (WBC) Count 16.4 thou/uL (4.8-10.8)
[2019-01-01] MEDS: Lidocaine 5% Patch TD SCH (08:32)
[2019-01-01] MEDS: predniSONE 20 MG TAB PO SCH (08:41)
[2019-01-01] MEDS: Senokot S 8.6-50 MG TAB PO SCH ×2 (08:42→21:49)
[2019-01-01] MEDS: Polyethylene Glycol 3350 17 GM Packet PO SCH ×2 (08:42→21:49)
--- NOTE | 2019-01-01 08:50 | PRG ---
DATE OF SERVICE: 01/01/2019 SUBJECTIVE: Kraig Hernández is doing well. His hemodynamics are stable. He is having a little hemoptysis. He has tolerated his radiation well. OBJECTIVE: VITAL SIGNS: He is afebrile. Heart rates between 108 and 117, which is where he has been. Respiratory rates in the teens, oximetry is 92% to 95% on his trach collar, blood pressure 116/60. LUNGS: Remarkable for mild rhonchi. HEART: Regular rhythm. ABDOMEN: Soft. LABORATORY DATA: White count 16.4, hemoglobin 11.1, platelets 232. Sodium 139, potassium 3.3, chloride 96, bicarb 32, BUN 15, and creatinine 0.63. IMPRESSION: 1. Lung cancer, metastatic. 2. Head and neck cancer. 3. Mouth cancer. 4. Status post tracheostomy. 5. Recent pneumonia. Overall, he is clinically stable. We will continue with his treatments. Job ID: [id number]
[2019-01-01] MEDS: Acetaminophen 650 MG/20.3 ML UDCUP PO SCH ×3 (12:00→23:52)
[2019-01-01] MEDS: Morphine Sulfate 100 MG in Dextrose 5% in Water 98 ML IV SCH (14:50)
--- NOTE | 2019-01-01 15:09 | PDOC.HOSPP ---
- Subjective Encounter Date: 01/01/19 Encounter Time: 15:08 Subjective: Mr. Hernández was seen today in follow-up of lung cancer and head and neck cancer. He does not have any new complaints. - Objective Vital Signs & Weight: Vital Signs (12 hours) Temp Pulse Resp BP Pulse Ox 01/01/19 14:55 94 L 01/01/19 14:13 120 H 24 H 92 L 01/01/19 08:18 98.0 F 120 H 18 125/91 H 92 L 01/01/19 08:10 118 H 22 H 92 L Weight Admit Weight 184 lb 8 oz Weight 185 lb 3.013 oz Most Recent Monitor Data Heart Rate from ECG 118 NIBP 153/101 NIBP BP-Mean 118 Respiration from ECG 25 SpO2 100 I&O: 12/31/18 01/01/19 01/02/19 06:59 06:59 06:59 Intake Total 960 910 Output Total 850 375 Balance 110 535 Result Diagrams: 01/01/19 04:37 01/01/19 04:37 Hospitalist ROS - Medication Medications: Active Medications Generic Name Dose Route Start Last Admin Trade Name Freq PRN Reason Stop Dose Admin Albuterol/Ipratropium 3 ml 12/17/18 19:00 01/01/19 14:13 Duoneb NEB 3 ml [id number] ALANIS Administration Fentanyl 50 mcg 12/31/18 12:00 12/31/18 11:09 Duragesic TD 50 mcg Q3D ALANIS Administration Morphine Sulfate 100 mg/ 100 mls @ 0 mls/hr 12/31/18 13:25 01/01/19 14:50 Dextrose/Water IV 100 mls INF ALANIS Administration Lidocaine 2 patch 12/21/18 09:00 01/01/19 08:32 Lidoderm 5% Patch TD 2 patch DAILY ALANIS Administration Lidocaine HCl 15 ml 12/31/18 01:32 12/31/18 09:13 Xylocaine 2% Viscous SSP 15 ml Q1H PRN Administration ORAL IRRITATION Miscellaneous Medication 1 each 12/21/18 21:00 12/31/18 21:39 Lidocaine Patch Removal TOP 1 each 2100 ALANIS Administration Polyethylene Glycol 17 gm 12/20/18 21:00 01/01/19 08:42 Miralax PO 17 gm BID ALANIS Administration Prednisone 20 mg 12/31/18 08:00 09/27/19 08:41 Prednisone PO 20 mg QAM-WM ALANIS Administration Senna/Docusate Sodium 1 tab 12/27/18 21:00 01/01/19 08:42 Senokot S PO 1 tab BID ALANIS Administration Sodium Chloride 10 ml 12/17/18 17:28 12/28/18 18:09 Flush - Normal Saline IVF 10 ml PRN PRN Administration Saline Flush - Exam Eye: PERRL, anicteric sclera Heart: RRR, no murmur, no gallops, no rubs, normal peripheral pulses Respiratory: CTAB, no rales, no ronchi, normal chest expansion, wheezes ( occassional wheeze) Gastrointestinal: soft, non-tender, non-distended, normal bowel sounds, no palpable masses, no hepatomegaly, no splenomegaly Extremities: no cyanosis, no clubbing, no edema Hosp A/P (1) Stage 4 lung cancer Code(s): C34.90 - MALIGNANT NEOPLASM OF UNSP PART OF UNSP BRONCHUS OR LUNG Status: Chronic (2) Tracheostomy care Code(s): Z43.0 - ENCOUNTER FOR ATTENTION TO TRACHEOSTOMY Status: Acute (3) Acute respiratory failure with hypoxia Code(s): J96.01 - ACUTE RESPIRATORY FAILURE WITH HYPOXIA Status: Acute - Plan * Acute respiratory failure- stable- resolved * Stage 4 Lung Cancer- he has a metastatic foci in the thoracic spine and is receiving XRT to this area * Head and neck cancer- continue symptom management for now, and plan is for chemotherapy after discharge * Continue to mobilize as much as possible
[2019-01-01] MEDS: Lidocaine Patch Removal 1 EACH TOP SCH (21:49)
[2019-01-02] MEDS: Acetaminophen 650 MG/20.3 ML UDCUP PO SCH ×2 (05:31→13:54)
[2019-01-02] MEDS: Lidocaine Viscous Sol 2% 15 ml UD Cup SSP PRN (09:01)
--- NOTE | 2019-01-02 11:56 | PRG ---
DATE OF SERVICE: 01/02/2019 SUBJECTIVE: He is about the same. Had no acute complaints of the back pain. OBJECTIVE: VITAL SIGNS: Temperature 98.6, pulse 116, respirations 20, O2 saturation 93% on trach collar. HEENT: Unremarkable. NECK: Bloody secretions around the trach. CARDIAC: S1 and S2. Regular. ABDOMEN: Soft. EXTREMITIES: No edema. ASSESSMENT: 1. Lung cancer, metastatic. 2. Head and neck cancer. 3. Mouth cancer. 4. Status post tracheostomy. PLAN: 1. Continue tracheal suctioning. 2. Discharge planning. Job ID: [id number]
[2019-01-02] MEDS: Morphine Sulfate 100 MG in Dextrose 5% in Water 98 ML IV SCH (13:09)
[2019-01-02] MEDS: Lidocaine 5% Patch TD SCH (13:20)
[2019-01-02] MEDS: Polyethylene Glycol 3350 17 GM Packet PO SCH ×2 (13:20→20:11)
[2019-01-02] MEDS: predniSONE 20 MG TAB PO SCH (13:20)
[2019-01-02] MEDS: Senokot S 8.6-50 MG TAB PO SCH ×2 (13:21→20:11)
--- NOTE | 2019-01-02 16:40 | PDOC.HOSPP ---
- Subjective Encounter Date: 01/02/19 Encounter Time: 13:00 Subjective: Mr. Hernández was seen today in follow-up of bleeding from the trach and respiratory failure. He does not have any new complaints. - Objective Vital Signs & Weight: Vital Signs (12 hours) Temp Pulse Resp BP Pulse Ox 01/02/19 13:33 98.4 F 117 H 28 H 137/69 90 L 01/02/19 13:26 117 H 24 H 92 L 01/02/19 08:08 116 H 20 93 L 01/02/19 08:00 98.6 F 116 H 28 H 139/80 91 L Weight Admit Weight 184 lb 8 oz Weight 185 lb 3.013 oz Most Recent Monitor Data Heart Rate from ECG 118 NIBP 153/101 NIBP BP-Mean 118 Respiration from ECG 25 SpO2 100 I&O: 01/01/19 01/02/19 01/03/19 06:59 06:59 06:59 Intake Total 910 640 Output Total 375 550 Balance 535 90 Result Diagrams: 01/01/19 04:37 01/01/19 04:37 Hospitalist ROS - Medication Medications: Active Medications Generic Name Dose Route Start Last Admin Trade Name Freq PRN Reason Stop Dose Admin Albuterol/Ipratropium 3 ml 12/17/18 19:00 01/02/19 13:26 Duoneb NEB 3 ml [id number] ALANIS Administration Fentanyl 50 mcg 12/31/18 12:00 12/31/18 11:09 Duragesic TD 50 mcg Q3D ALANIS Administration Morphine Sulfate 100 mg/ 100 mls @ 0 mls/hr 12/31/18 13:25 01/02/19 13:09 Dextrose/Water IV 100 mls INF ALANIS Administration Lidocaine 2 patch 12/21/18 09:00 01/02/19 13:20 Lidoderm 5% Patch TD 2 patch DAILY ALANIS Administration Lidocaine HCl 15 ml 12/31/18 01:32 01/02/19 09:01 Xylocaine 2% Viscous SSP 15 ml Q1H PRN Administration ORAL IRRITATION Miscellaneous Medication 1 each 12/21/18 21:00 01/01/19 21:49 Lidocaine Patch Removal TOP 1 each 2100 ALANIS Administration Polyethylene Glycol 17 gm 12/20/18 21:00 01/02/19 13:20 Miralax PO 17 gm BID ALANIS Administration Prednisone 20 mg 12/31/18 08:00 01/02/19 13:20 Prednisone PO 20 mg QAM-WM ALANIS Administration Senna/Docusate Sodium 1 tab 12/27/18 21:00 01/02/19 13:21 Senokot S PO 1 tab BID ALANIS Administration Sodium Chloride 10 ml 12/17/18 17:28 12/28/18 18:09 Flush - Normal Saline IVF 10 ml PRN PRN Administration Saline Flush - Exam Eye: PERRL, anicteric sclera ENT: normocephalic atraumatic (+ blood oozing from the floor of his mouth) Heart: RRR, no murmur, no gallops, no rubs, normal peripheral pulses Respiratory: no rales, no ronchi, wheezes (+ mild expiratory wheeze) Gastrointestinal: soft, non-tender, non-distended, normal bowel sounds, no palpable masses, no hepatomegaly, no splenomegaly, no guarding Extremities: no cyanosis, no clubbing, no edema Hosp A/P (1) Stage 4 lung cancer Code(s): C34.90 - MALIGNANT NEOPLASM OF UNSP PART OF UNSP BRONCHUS OR LUNG Status: Chronic (2) Tracheostomy care Code(s): Z43.0 - ENCOUNTER FOR ATTENTION TO TRACHEOSTOMY Status: Acute (3) Acute respiratory failure with hypoxia Code(s): J96.01 - ACUTE RESPIRATORY FAILURE WITH HYPOXIA Status: Acute - Plan * Acute respiratory failure- stable- resolved * Stage 4 Lung Cancer- he has a metastatic foci in the thoracic spine and is receiving XRT to this area * Head and neck cancer- continue symptom management for now- he is on a Morphine MECHANICAL OPERATOR pump for pain control * Plan is to begin Chemotherapy after discharge * Continue to mobilize as much as possible
[2019-01-02] MEDS ORDERED: Acetaminophen 650 MG/20.3 ML UDCUP PO PRN (18:00)
[2019-01-02] MEDS: Lidocaine Patch Removal 1 EACH TOP SCH (20:11)
[2019-01-03] MEDS: Lidocaine Viscous Sol 2% 15 ml UD Cup SSP PRN (10:23)
[2019-01-03] MEDS: Polyethylene Glycol 3350 17 GM Packet PO SCH ×2 (11:34→21:18)
[2019-01-03] MEDS: predniSONE 20 MG TAB PO SCH (11:34)
[2019-01-03] MEDS: Senokot S 8.6-50 MG TAB PO SCH ×2 (11:34→21:18)
[2019-01-03] MEDS: Lidocaine 5% Patch TD SCH (11:34)
--- NOTE | 2019-01-03 11:57 | PRG ---
DATE OF SERVICE: 01/03/2019 SUBJECTIVE: The patient is still having some bleeding around his trach. I think this is probably due to tumor bleeding. He requires frequent suctioning. OBJECTIVE: VITAL SIGNS: On exam, temperature is 98.5, pulse 117, O2 saturation in the high 80s to low 90s on trach collar, and blood pressure 144/77. NECK: His tracheostomy site was examined, it shows some bleeding, otherwise everything looks okay. LABORATORY DATA: No new labs were done today. ASSESSMENT: Status post tracheostomy for mouth cancer. PLAN: 1. Continue suctioning. 2. Discharge planning. Job ID: [id number]
[2019-01-03] MEDS: fentaNYL 50 mcg/hour Patch TD SCH (15:38)
[2019-01-03] MEDS: Morphine Sulfate 100 MG in Dextrose 5% in Water 98 ML IV SCH (16:19)
[2019-01-03] MEDS ORDERED: Aluminum & Magnesium Hydroxide 60 ML, diphenhydrAMINE 150 MG, Lidocaine 2% Viscous Solu... SSW PRN (18:23)
--- NOTE | 2019-01-03 18:26 | PDOC.HOSPP ---
- Subjective Encounter Date: 01/03/19 Encounter Time: 18:25 Subjective: f/u for - Objective Vital Signs & Weight: Vital Signs (12 hours) Temp Pulse Resp BP BP Pulse Ox 01/03/19 13:10 120 H 20 01/03/19 12:27 90 L 01/03/19 12:25 98.4 F 122 H 28 H 155/86 H 92 L 01/03/19 08:12 98.5 F 117 H 28 H 144/77 H 89 L 01/03/19 07:01 93 L Weight Admit Weight 184 lb 8 oz Weight 185 lb 3.013 oz Most Recent Monitor Data Heart Rate from ECG 118 NIBP 153/101 NIBP BP-Mean 118 Respiration from ECG 25 SpO2 100 I&O: 01/02/19 01/03/19 01/04/19 06:59 06:59 06:59 Intake Total 640 240 Output Total 550 550 Balance 90 -310 Result Diagrams: 01/01/19 04:37 01/01/19 04:37 Hospitalist ROS - Medication Medications: Active Medications Generic Name Dose Route Start Last Admin Trade Name Freq PRN Reason Stop Dose Admin Albuterol/Ipratropium 3 ml 12/17/18 19:00 01/03/19 13:10 Duoneb NEB 3 ml [id number] ALANIS Administration Bisacodyl 10 mg 12/17/18 17:28 01/03/19 11:36 Dulcolax PO 10 mg DAILYPRN PRN Administration Constipation Fentanyl 50 mcg 12/31/18 12:00 01/03/19 15:38 Duragesic TD 50 mcg Q3D ALANIS Administration Morphine Sulfate 100 mg/ 100 mls @ 0 mls/hr 12/31/18 13:25 01/03/19 16:19 Dextrose/Water IV 100 mls INF ALANIS Administration Lidocaine 2 patch 12/21/18 09:00 01/03/19 11:34 Lidoderm 5% Patch TD 2 patch DAILY ALANIS Administration Lidocaine HCl 15 ml 12/31/18 01:32 01/03/19 10:23 Xylocaine 2% Viscous SSP 15 ml Q1H PRN Administration ORAL IRRITATION Miscellaneous Medication 1 each 12/21/18 21:00 01/02/19 20:11 Lidocaine Patch Removal TOP 1 each 2100 ALANIS Administration Polyethylene Glycol 17 gm 12/20/18 21:00 09/29/19 11:34 Miralax PO 17 gm BID ALANIS Administration Prednisone 20 mg 12/31/18 08:00 01/03/19 11:34 Prednisone PO 20 mg QAM-WM ALANIS Administration Senna/Docusate Sodium 1 tab 12/27/18 21:00 01/03/19 11:34 Senokot S PO 1 tab BID ALANIS Administration Sodium Chloride 10 ml 12/17/18 17:28 12/28/18 18:09 Flush - Normal Saline IVF 10 ml PRN PRN Administration Saline Flush - Exam General Appearance: ill appearing General - other findings: anxious appearing Eye: PERRL, anicteric sclera Eye - other findings: blood in oropharynx ENT: normocephalic atraumatic Neck: symmetric Neck - other findings: trach with blood around insertion at skin, bloody secretions Heart: no murmur, no gallops Heart - other findings: tachycardic Respiratory: rales, rhonchi Respiratory - other findings: diminished bilat Gastrointestinal: soft, non-tender, non-distended, normal bowel sounds Extremities: no cyanosis, no edema Neurological: cranial nerve grossly intact, no new deficit Musculoskeletal: generalized weakness Hosp A/P (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 Plan: Consider Keytruda given the location of SCC, Med/Rad oncology coordinating, start Magic Mouthwash (2) Central stenosis of spinal canal Code(s): M48.00 - SPINAL STENOSIS, SITE UNSPECIFIED Status: Chronic Plan: ROLLER HAND with Morphine Sulfate, Duragesic patch, Lidocaine patch and Ultram (3) Constipation Code(s): K59.00 - CONSTIPATION, UNSPECIFIED Status: Acute Qualifiers: Constipation type: slow transit constipation Qualified Code(s): K59.01 - Slow transit constipation (4) Leucocytosis Code(s): D72.829 - ELEVATED WHITE BLOOD CELL COUNT, UNSPECIFIED Status: Chronic Plan: Likely multifactorial given oral CA and chronic Prednisone (5) Oral bleeding Code(s): K13.79 - OTHER LESIONS OF ORAL MUCOSA Status: Acute Plan: Secondary to SCC of oropharynx, Magic mouthwash (6) Stable burst fracture of T11 vertebra Code(s): S22.081A - STABLE BURST FRACTURE OF T11-T12 VERTEBRA, INIT FOR CLOS FX Status: Chronic Plan: Pain control, XRT per Rad oncology - Plan PT/OT, social work case manager, respiratory therapy, DVT proph w/SCDs Stable overall Continue routine trach care PT for mobilization Start Magic Mouthwash CM for SNF/NH options Titrate ROLLER HAND per Pain Mgmt Service Continue Duragesic patch
[2019-01-03] MEDS ORDERED: Scopolamine 1.5 mg/72 hour Patch TD SCH (20:00)
[2019-01-03] MEDS: Lidocaine Patch Removal 1 EACH TOP SCH (23:45)
--- NOTE | 2019-01-04 01:31 | PDOC.EVN ---
Event Note - Event Note Event Note: Called to bedside for tracheal bleeding, patient with some bleeding from trach site in manner similar to previuos, he may have aspirated some blood as well , started on pulse ox continuous monitor and CXR and empiric unasyn started, called later by nursing that sats doing well but RR increased, will transfer to ICU, call placed to pulmonology knowledge management consultant Dr Ariza in case needs to be placed on ventilator awaiting reply
[2019-01-04] MEDS: Ampicillin/Sulbactam 3 GM in Sodium Chloride 0.9% 100 ML IVPB SCH ×4 (02:50→19:54)
--- NOTE | 2019-01-04 09:37 | RAD ---
SINGLE VIEW CHEST: Date: 01/04/19 COMPARISON: 12/17/18. HISTORY: Bleeding tracheostomy. FINDINGS: Single view of the chest shows normal sized cardiomediastinal silhouette. There is near complete opac ification of the left thorax. The tracheostomy is seen in good position overlying the midline. The Me diPort is unchanged in position. IMPRESSION: 1. No significant tracheal change. 2. Near complete opacification of the left thorax may represent a pleural effusion and/or pulmonary mass. POS: CET
[2019-01-04] MEDS: Lidocaine 5% Patch TD SCH (10:23)
[2019-01-04] MEDS: predniSONE 20 MG TAB PO SCH (10:25)
[2019-01-04] MEDS: Senokot S 8.6-50 MG TAB PO SCH ×2 (10:26→21:30)
[2019-01-04] MEDS: Polyethylene Glycol 3350 17 GM Packet PO SCH ×2 (10:26→21:30)
[2019-01-04] MEDS ORDERED: Lorazepam 2 MG/ML VIAL SLOW IVP PRN (13:17)
--- NOTE | 2019-01-04 13:19 | PDOC.HOSPP ---
- Subjective Encounter Date: 01/04/19 Encounter Time: 13:10 Subjective: f/u for Stage IV lung ca with mets receiving radiation tx for osseous metastatic process. Moved to CCU overnight due to resp distress, increased trach site bleeding and initiation of Unasyn. Still anxious per nursing and pulling at lines and agitated. Also remains on TELEPHONE INTERVIEWER with Morphine Sulfate, Duragesic patch and po Ultram. - Objective Vital Signs & Weight: Vital Signs (12 hours) Temp Pulse Resp BP Pulse Ox 01/04/19 12:00 99.1 F 01/04/19 08:00 99.1 F 95 01/04/19 06:55 94 L 01/04/19 06:54 124 H 36 H 94 L 01/04/19 04:00 98.2 F 01/04/19 02:00 98.3 F 98 01/04/19 01:26 113 H 40 H 139/69 91 L Weight Admit Weight 184 lb 8 oz Weight 185 lb 3.013 oz Most Recent Monitor Data Heart Rate from ECG 108 NIBP 117/65 NIBP BP-Mean 88 Respiration from ECG 26 SpO2 94 I&O: 01/03/19 01/04/19 01/05/19 06:59 06:59 06:59 Intake Total 240 146 30 Output Total 550 350 0 Balance -310 -204 30 Result Diagrams: 01/01/19 04:37 01/01/19 04:37 Radiology Reviewed by me: Yes (PCXR - opacification of L hemithorax worsened since 12/25/18) EKG Reviewed by me: Yes (Tele - Sinus tachycardia in 120's) Hospitalist ROS - Medication Medications: Active Medications Generic Name Dose Route Start Last Admin Trade Name Freq PRN Reason Stop Dose Admin Albuterol/Ipratropium 3 ml 12/17/18 19:00 01/04/19 06:54 Duoneb NEB 3 ml [id number] ALANIS Administration Bisacodyl 10 mg 12/17/18 17:28 01/03/19 11:36 Dulcolax PO 10 mg DAILYPRN PRN Administration Constipation Al Hydroxide/Mg Hydroxide 60 0 ml 01/03/19 18:23 01/03/19 20:09 ml/ Diphenhydramine HCl 150 mg SSW 10 ml / Lidocaine HCl 60 ml/ PRN PRN Administration Nystatin 6,000,000 units Mouth Irritation Fentanyl 50 mcg 12/31/18 12:00 01/03/19 15:38 Duragesic TD 50 mcg Q3D ALANIS Administration Morphine Sulfate 100 mg/ 100 mls @ 0 mls/hr 12/31/18 13:25 01/03/19 16:19 Dextrose/Water IV 100 mls INF ALANIS Administration Ampicillin Sodium/Sulbactam 100 mls @ 200 mls/hr 01/04/19 02:00 01/04/19 08: 36 Sodium 3 gm/ Sodium Chloride IVPB 100 mls 0200,0800,1400,2000 ALANIS Administration Lidocaine 2 patch 12/21/18 09:00 01/04/19 10:23 Lidoderm 5% Patch TD 2 patch DAILY ALANIS Administration Lidocaine HCl 15 ml 12/31/18 01:32 01/03/19 10:23 Xylocaine 2% Viscous SSP 15 ml Q1H PRN Administration ORAL IRRITATION Miscellaneous Medication 1 each 12/21/18 21:00 01/03/19 23:45 Lidocaine Patch Removal TOP 1 each 2100 ALANIS Administration Polyethylene Glycol 17 gm 12/20/18 21:00 01/04/19 10:26 Miralax PO Not Given BID ALANIS Prednisone 20 mg 12/31/18 08:00 01/04/19 10:25 Prednisone PO 20 mg QAM-WM ALANIS Administration Scopolamine 1.5 mg 01/03/19 20:00 01/03/19 20:12 Transderm Scop TD 1.5 mg Q3D ALANIS Administration Senna/Docusate Sodium 1 tab 12/27/18 21:00 01/04/19 10:26 Senokot S PO 1 tab BID ALANIS Administration Sodium Chloride 10 ml 12/17/18 17:28 12/28/18 18:09 Flush - Normal Saline IVF 10 ml PRN PRN Administration Saline Flush Tramadol HCl 50 mg 12/31/18 10:12 01/03/19 18:49 Ultram PO 50 mg Q6H PRN Administration Pain - Exam General Appearance: ill appearing General - other findings: anxious, grabbing at the air, non-verbal Eye: PERRL ENT: normocephalic atraumatic ENT - other findings: blood around trach site and in oral cavity Neck - other findings: Trach in place Heart: no gallops, no rubs, normal peripheral pulses Heart - other findings: tachycardic Respiratory: rales, rhonchi, tachypneic Respiratory - other findings: diminished air movement of left hemithorax Gastrointestinal: soft, normal bowel sounds, no palpable masses Gastrointestinal - other findings: distended Extremities: no edema Skin: normal turgor Neurological: no new deficit Neurological - other findings: non-verbal, moves all limbs Musculoskeletal: generalized weakness Psychiatric: oriented to person Hosp A/P (1) Acute respiratory failure with hypoxia Code(s): J96.01 - ACUTE RESPIRATORY FAILURE WITH HYPOXIA Status: Acute Plan: Secondary to lung carcinoma, increased secretions from around trach site and potential infectious process with effusion, continue Unasyn, suctioning, Duonebs T-piece, appears to be worsening (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 Plan: With associated intermittent bleeding (3) Central stenosis of spinal canal Code(s): M48.00 - SPINAL STENOSIS, SITE UNSPECIFIED Status: Chronic (4) Constipation Code(s): K59.00 - CONSTIPATION, UNSPECIFIED Status: Acute Qualifiers: Constipation type: slow transit constipation Qualified Code(s): K59.01 - Slow transit constipation Plan: Stool softeners (5) Leucocytosis Code(s): D72.829 - ELEVATED WHITE BLOOD CELL COUNT, UNSPECIFIED Status: Chronic (6) Oral bleeding Code(s): K13.79 - OTHER LESIONS OF ORAL MUCOSA Status: Acute (7) Stable burst fracture of T11 vertebra Code(s): S22.081A - STABLE BURST FRACTURE OF T11-T12 VERTEBRA, INIT FOR CLOS FX Status: Chronic Plan: Radiation tx for palliative tx - Plan plan discussed w/ family, continue antibiotics, professor of social work, respiratory therapy, DVT proph w/SCDs Clinical deterioration Trach care with RT PT for mobilization Start Magic Mouthwash Palliative care/Hospice discussion Titrate TELEPHONE INTERVIEWER per Pain Mgmt Service Continue Duragesic patch Ativan IV prn agitation Lab: BMP, CBC ABG now Poor prognosis
[2019-01-04 13:48] LABS: Actual Bicarbonate (HCO3a) 26.3 mEq/L (22-28); Base Excess (BEa) 1.7 mEq/L (-2.0 to +3.0); CO2 Tension 41.2 mmHg (35.0-45.0); Calcium, Ionized 1.15 mmol/L (1.12-1.30); Carboxyhemoglobin (COHb) 1.5 gm% (0.0-3.0); Hemoglobin (Hb) 11.2 g/dL (14.0-18.0); O2 Tension (PaO2) 68.1 mmHg (> 80.0); Potassium - ABG Lab 3.49 mmol/L (3.70-5.30); Puncture Site LRA; pH, Arterial 7.42 (7.35-7.45)
[2019-01-04] MEDS: Lorazepam 2 MG/ML VIAL SLOW IVP PRN (19:54)
--- NOTE | 2019-01-04 19:56 | PRG ---
DATE OF SERVICE: 01/04/2019 SUBJECTIVE: Kraig Hernández has taken a turn for the worse over the weekend. He has moved back in the ICU today. He is having trouble handling his secretions and he has become so weak over the last few days. He cannot cough his secretions out of his tracheostomy tube. OBJECTIVE: VITAL SIGNS: Have been stable. He is tachypneic, breathing in the high 30s. LUNGS: Remarkable for diffuse rhonchi. HEART: Regular rhythm. S1 and S2 are normal. ABDOMEN: Soft and nontender. LABORATORY DATA: There is no new lab. IMPRESSION AND PLAN: Multiple malignancies with deconditioning and weakness that will lead to his unfortunate demise. He has actually done quite well for some time and better than expected. I had a long meeting with the today and explained that comfort care is the next best option. She agreed to this. He will be kept comfortable and if he is stable overnight, we will transfer him out of the critical care unit in the morning, so the family can be with him. Job ID: [id number]
[2019-01-04] MEDS: Lidocaine Patch Removal 1 EACH TOP SCH (21:30)
[2019-01-05] MEDS: Lorazepam 2 MG/ML VIAL SLOW IVP PRN ×4 (00:40→21:26)
[2019-01-05] MEDS: Ampicillin/Sulbactam 3 GM in Sodium Chloride 0.9% 100 ML IVPB SCH ×2 (02:12→08:14)
[2019-01-05 06:40] LABS: Hemoglobin 10.1 g/dL (14.0-18.0); Mean Corpuscular HGB CONC 32.6 g/dL (32.0-36.0); Mean Corpuscular Hemoglobin 32.3 pg (27.0-31.0); Mean Platelet Volume 7.6 fL (7.4-10.4); Platelet Count 139 thou/uL (130-400); RBC Distribution Width 13.7 % (11.5-14.5); Red Blood Cell (RBC) Count 3.13 mill/uL (4.70-6.10); White Blood Cell (WBC) Count 12.1 thou/uL (4.8-10.8)
[2019-01-05 07:02] LABS: Anion Gap 15 mmol/L (10-20); BUN (Urea Nitrogen) 19 mg/dL (8.4-25.7); Calc. Creatinine Clearance 146 mL/min (70-130); Calcium 8.4 mg/dL (7.8-10.44); Carbon Dioxide 32 mmol/L (23-31); Chloride 101 mmol/L (98-107); Estimated GFR-MDRD Greater than 90; Glucose 92 mg/dL (80-115); Potassium 3.3 mmol/L (3.5-5.1); Sodium 145 mmol/L (136-145)
[2019-01-05 07:20] LABS: Band 54 % (5-11); Eosinophils 9 % (0-10); Lymphocytes 2 % (21-51); MDiff Complete? YES; Metamyelocyte 1 % (0-0); Monocytes 2 % (0-10); Myelocyte 2 % (0-0); Neutrophil 30 % (42-75); Platelet Morphology Comment Appears Adequate; Polychromasia SLIGHT = 2-3 cells (100X) (0-2/hpf)
[2019-01-05] MEDS: predniSONE 20 MG TAB PO SCH (08:12)
[2019-01-05] MEDS: Polyethylene Glycol 3350 17 GM Packet PO SCH (08:13)
[2019-01-05] MEDS: Senokot S 8.6-50 MG TAB PO SCH (08:13)
[2019-01-05] MEDS: Lidocaine 5% Patch TD SCH (10:15)
--- NOTE | 2019-01-05 12:53 | PRG ---
DATE OF SERVICE: 01/05/2019 SUBJECTIVE: Kraig Hernández is sedated because of respiratory distress. He does not awake with verbal stimuli. He is tachypneic. He has audible rhonchi across the room. He is still coughing up blood. OBJECTIVE: HEART: Regular rhythm. ABDOMEN: Soft. LABORATORY DATA: White count 12.1, hemoglobin 10.1, and platelets 139. Electrolytes are normal. ASSESSMENT AND PLAN: He has reached a point, where comfort measures will be only good option. Family is on board with this. Daughter, son, and were at the bedside. We will transfer him out to the noncritical care bed when one becomes available to continue with comfort measures. Job ID: [id number]
--- NOTE | 2019-01-05 17:03 | PDOC.HOSPP ---
- Subjective Encounter Date: 01/05/19 Encounter Time: 17:00 Subjective: f/u for respiratory failure, progressive clinical decline, hemoptysis/tracheal bleeding. Remains sedate with Ativan on O2 supplementation by T-collar. Transitioning to comfort/palliative care. - Objective Vital Signs & Weight: Vital Signs (12 hours) Temp Pulse Resp BP Pulse Ox 01/05/19 15:19 97.0 F L 110 H 36 H 97 01/05/19 13:00 113 H 32 H 137/72 93 L 01/05/19 12:00 98.5 F 01/05/19 08:06 116 H 27 H 01/05/19 08:00 98.3 F 100 Weight Admit Weight 184 lb 8 oz Weight 185 lb 3.013 oz Most Recent Monitor Data Heart Rate from ECG 110 NIBP 123/78 NIBP BP-Mean 109 Respiration from ECG 31 SpO2 99 I&O: 01/04/19 01/05/19 01/06/19 06:59 06:59 06:59 Intake Total 146 920 240 Output Total 350 1215 230 Balance -204 -295 10 Result Diagrams: 01/05/19 06:00 01/05/19 06:00 EKG Reviewed by me: Yes (Tele - Sinus tachycardia) Hospitalist ROS - Medication Medications: Active Medications Generic Name Dose Route Start Last Admin Trade Name Freq PRN Reason Stop Dose Admin Bisacodyl 10 mg 12/17/18 17:28 01/03/19 11:36 Dulcolax PO 10 mg DAILYPRN PRN Administration Constipation Al Hydroxide/Mg Hydroxide 60 0 ml 01/03/19 18:23 01/03/19 20:09 ml/ Diphenhydramine HCl 150 mg SSW 10 ml / Lidocaine HCl 60 ml/ PRN PRN Administration Nystatin 6,000,000 units Mouth Irritation Fentanyl 50 mcg 12/31/18 12:00 01/03/19 15:38 Duragesic TD 50 mcg Q3D ALANIS Administration Morphine Sulfate 100 mg/ 100 mls @ 0 mls/hr 12/31/18 13:25 01/03/19 16:19 Dextrose/Water IV 100 mls INF ALANIS Administration Lidocaine 2 patch 12/21/18 09:00 01/05/19 10:15 Lidoderm 5% Patch TD 2 patch DAILY ALANIS Administration Lidocaine HCl 15 ml 12/31/18 01:32 01/03/19 10:23 Xylocaine 2% Viscous SSP 15 ml Q1H PRN Administration ORAL IRRITATION Lorazepam 1 mg 01/04/19 14:05 01/05/19 12:10 Ativan SLOW IVP 1 mg Q2H PRN Administration Anxiety/Agitation Miscellaneous Medication 1 each 12/21/18 21:00 01/04/19 21:30 Lidocaine Patch Removal TOP 1 each 2100 ALANIS Administration Scopolamine 1.5 mg 01/03/19 20:00 01/03/19 20:12 Transderm Scop TD 1.5 mg Q3D ALANIS Administration Sodium Chloride 10 ml 12/17/18 17:28 12/28/18 18:09 Flush - Normal Saline IVF 10 ml PRN PRN Administration Saline Flush Tramadol HCl 50 mg 12/31/18 10:12 01/03/19 18:49 Ultram PO 50 mg Q6H PRN Administration Pain - Exam General Appearance: ill appearing General - other findings: somnolent Eye: anicteric sclera ENT: normocephalic atraumatic ENT - other findings: blood around trach site Neck: supple, symmetric, no JVD Neck - other findings: trach in place Heart: no gallops, no rubs, normal peripheral pulses Heart - other findings: tachycardic Respiratory: rhonchi, tachypneic Respiratory - other findings: diminished L>R, scattered coarse sounds Gastrointestinal: soft, non-tender, non-distended, normal bowel sounds Extremities: no cyanosis, no clubbing, no edema Skin: normal turgor Neurological: no new deficit Musculoskeletal: generalized weakness Psychiatric: somnolent, lethargic Hosp A/P (1) Acute respiratory failure with hypoxia Code(s): J96.01 - ACUTE RESPIRATORY FAILURE WITH HYPOXIA Status: Acute Plan: Persistent give hx of Stage IV Lung CA, continue T-collar, titrate O2 to clinical response, appears end-stage (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 (3) Central stenosis of spinal canal Code(s): M48.00 - SPINAL STENOSIS, SITE UNSPECIFIED Status: Chronic (4) Constipation Code(s): K59.00 - CONSTIPATION, UNSPECIFIED Status: Acute Qualifiers: Constipation type: slow transit constipation Qualified Code(s): K59.01 - Slow transit constipation (5) Leucocytosis Code(s): D72.829 - ELEVATED WHITE BLOOD CELL COUNT, UNSPECIFIED Status: Chronic (6) Oral bleeding Code(s): K13.79 - OTHER LESIONS OF ORAL MUCOSA Status: Acute (7) Stable burst fracture of T11 vertebra Code(s): S22.081A - STABLE BURST FRACTURE OF T11-T12 VERTEBRA, INIT FOR CLOS FX Status: Chronic - Plan respiratory therapy, DVT proph w/SCDs Clinical deterioration Trach care with RT Transition to Palliative/comfort care Magic Mouthwash Palliative care/Hospice Titrate PROVIDER RELATIONS COORDINATOR per Pain Mgmt Service Continue Duragesic patch Ativan IV prn agitation Poor prognosis Code Status: DNAR
[2019-01-05] MEDS ORDERED: Morphine 4 MG/ML VIAL SLOW IVP PRN (17:05)
--- NOTE | 2019-01-05 17:13 | PDOC.PALCO ---
Palliative Care Consult - Consult Details Requesting Physician: Obriant Reason for Consult: goals of care, symptom management, family support Family Members Present: and daughter - Pertinent HPI 63 year old male who was admitted to the hospital secondary to shortness of breath and cough with bleeding from his trach. Underlying metastatic cancer with hypoxia, admitted to IMCU and transferred to oncology for comfort measures. - Social History Smoking Status: Former smoker Smoking: cigarettes Alcohol Use: rarely Drug Use History: none Living Situation: - Medications MAR Reviewed: Yes - Allergies Allergies/Adverse Reactions: Allergies Allergy/AdvReac Type Severity Reaction Status Date / Time No Known Allergies Allergy Verified 11/23/18 14:04 - Subjective Restless with distended abdomen and labored respirations. Increase in confusion and patient not routinely utilizing SALES SUPPORT ADVISOR pump. ROS: confusion, trach, restless, labored respirations. - Objective Vital Signs: Vital Signs - Most Recent Temp Pulse Resp BP Pulse Ox 97.0 F L 110 H 36 H 137/72 97 01/05/19 15:19 01/05/19 15:19 01/05/19 15:19 01/05/19 13:00 01/05/19 15:19 Palliative Performance Scale: 20 - Physical Exam Constitutional: confusion, moderate distress HEENT: moist MMs, EOMI Respiratory: tachypnea Deviation from normal: labored respirations, bloody secretions via trach Cardiovascular: RRR Gastrointestinal: positive bowel sounds Deviation from normal: distended, tympani, Musculoskeletal: edema present Neurological: moves all 4 limbs Deviation from normal: restless, confused Deviation from normal: mottled extremities, cool - Problem List (1) Palliative care encounter Code(s): Z51.5 - ENCOUNTER FOR PALLIATIVE CARE Current Visit: Yes Status: Acute (2) Acute respiratory failure with hypoxia Code(s): J96.01 - ACUTE RESPIRATORY FAILURE WITH HYPOXIA Current Visit: Yes Status: Acute (3) COPD with acute exacerbation Code(s): J44.1 - CHRONIC OBSTRUCTIVE PULMONARY DISEASE W (ACUTE) EXACERBATION Current Visit: Yes Status: Acute (4) Stage 4 lung cancer Code(s): C34.90 - MALIGNANT NEOPLASM OF UNSP PART OF UNSP BRONCHUS OR LUNG Current Visit: Yes Status: Chronic - Plan/Recommendations Plan: 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 DC Pain Morphine pump as patient not able to manipulate Morphine IVP with breakthrough option Continue Ativan IVP Increase Scopolamine patch to facilitate decrease in secretions. [60] minutes spent on this encounter with >50% of the time in counseling and coordination of care. Thank you for this very appropriate consult.
[2019-01-05] MEDS: Scopolamine 1.5 mg/72 hour Patch TD SCH (18:37)
[2019-01-05] MEDS: Lidocaine Patch Removal 1 EACH TOP SCH (21:26)
[2019-01-06] MEDS: Atropine Sulfate 1% Ophth Soln 5 ml Bottle FS PRN ×2 (04:16→08:16)
[2019-01-06] MEDS: Morphine 2 MG/ML SYRINGE SLOW IVP PRN (06:27)
[2019-01-06] MEDS: Lidocaine 5% Patch TD SCH (08:16)
[2019-01-06] MEDS: Lorazepam 2 MG/ML VIAL SLOW IVP PRN ×2 (10:31→14:02)
--- NOTE | 2019-01-06 10:47 | PDOC.HOSPP ---
- Subjective Encounter Date: 01/06/19 Encounter Time: 10:40 Subjective: f/u for resp failure, tracheal/oral bleeding, end-stage lung CA transitioned to comfort care and transferred to oncology. Still bleeding per nursing. - Objective Vital Signs & Weight: Vital Signs (12 hours) Temp Pulse Resp BP Pulse Ox 01/06/19 04:00 97.4 F L 105 H 28 H 145/84 H 96 01/06/19 02:49 97 01/06/19 00:01 97.5 F L 107 H 28 H 122/69 94 L Weight Admit Weight 184 lb 8 oz Weight 185 lb 3.013 oz Most Recent Monitor Data Heart Rate from ECG 110 NIBP 123/78 NIBP BP-Mean 109 Respiration from ECG 31 SpO2 99 I&O: 01/05/19 01/06/19 01/07/19 06:59 06:59 06:59 Intake Total 920 240 Output Total 1215 580 Balance -295 -340 Result Diagrams: 01/05/19 06:00 01/05/19 06:00 Hospitalist ROS - Medication Medications: Active Medications Generic Name Dose Route Start Last Admin Trade Name Freq PRN Reason Stop Dose Admin Atropine Sulfate 0 drop 01/06/19 03:58 01/06/19 08:16 Atropine 1% Ophth Soln FS 2 drop Q4H PRN Administration SECRETIONS Bisacodyl 10 mg 12/17/18 17:28 01/03/19 11:36 Dulcolax PO 10 mg DAILYPRN PRN Administration Constipation Al Hydroxide/Mg Hydroxide 60 0 ml 01/03/19 18:23 01/03/19 20:09 ml/ Diphenhydramine HCl 150 mg SSW 10 ml / Lidocaine HCl 60 ml/ PRN PRN Administration Nystatin 6,000,000 units Mouth Irritation Fentanyl 50 mcg 12/31/18 12:00 01/03/19 15:38 Duragesic TD 50 mcg Q3D ALANIS Administration Lidocaine 2 patch 12/21/18 09:00 01/06/19 08:16 Lidoderm 5% Patch TD 2 patch DAILY ALANIS Administration Lidocaine HCl 15 ml 12/31/18 01:32 01/03/19 10:23 Xylocaine 2% Viscous SSP 15 ml Q1H PRN Administration ORAL IRRITATION Lorazepam 1 mg 01/04/19 14:05 01/06/19 10:31 Ativan SLOW IVP 1 mg Q2H PRN Administration Anxiety/Agitation Miscellaneous Medication 1 each 12/21/18 21:00 01/05/19 21:26 Lidocaine Patch Removal TOP 1 each 2100 ALANIS Administration Morphine Sulfate 2 mg 01/05/19 17:06 01/06/19 06:27 Morphine SLOW IVP 2 mg Q4H PRN Administration Breakthrough Pain Scopolamine 3 mg 01/05/19 18:00 01/05/19 18:37 Transderm Scop TD 3 mg Q3D ALANIS Administration Sodium Chloride 10 ml 12/17/18 17:28 12/28/18 18:09 Flush - Normal Saline IVF 10 ml PRN PRN Administration Saline Flush Tramadol HCl 50 mg 12/31/18 10:12 01/03/19 18:49 Ultram PO 50 mg Q6H PRN Administration Moderate Pain (4-6) - Exam General Appearance: NAD, ill appearing Eye: PERRL, anicteric sclera ENT: normocephalic atraumatic Neck: supple, no JVD Neck - other findings: Trach in place with blood in and around the device Heart: RRR Respiratory - other findings: coarse bilat, diminished L>R Gastrointestinal: soft, non-distended, normal bowel sounds Extremities: no cyanosis, no clubbing Skin: normal turgor Neurological: no new deficit Musculoskeletal: normal tone, generalized weakness Psychiatric: somnolent, lethargic Hosp A/P (1) Acute respiratory failure with hypoxia Code(s): J96.01 - ACUTE RESPIRATORY FAILURE WITH HYPOXIA Status: Acute Plan: Persistent with current T-collar, continues bleeding in oropharynx and trach site with frequent suctioning (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 (3) Central stenosis of spinal canal Code(s): M48.00 - SPINAL STENOSIS, SITE UNSPECIFIED Status: Chronic (4) Constipation Code(s): K59.00 - CONSTIPATION, UNSPECIFIED Status: Acute Qualifiers: Constipation type: slow transit constipation Qualified Code(s): K59.01 - Slow transit constipation (5) Leucocytosis Code(s): D72.829 - ELEVATED WHITE BLOOD CELL COUNT, UNSPECIFIED Status: Chronic (6) Oral bleeding Code(s): K13.79 - OTHER LESIONS OF ORAL MUCOSA Status: Acute Plan: Persistent, see above (7) Stable burst fracture of T11 vertebra Code(s): S22.081A - STABLE BURST FRACTURE OF T11-T12 VERTEBRA, INIT FOR CLOS FX Status: Chronic - Plan plan discussed w/ family Clinical deterioration Trach care with RT Transition to Palliative/comfort care Magic Mouthwash PRN Palliative care/Hospice appreciated Morphine Sulfate/Ativan Continue Duragesic patch Poor prognosis Code Status: DNAR
[2019-01-06] MEDS: Morphine 4 MG/ML VIAL SLOW IVP PRN ×3 (12:30→23:04)
[2019-01-06] MEDS: fentaNYL 50 mcg/hour Patch TD SCH (13:21)
--- NOTE | 2019-01-06 19:35 | PRG ---
DATE OF SERVICE: 01/06/2019 SUBJECTIVE: Mr. Hernández has been stable overnight. He intermittently wakes up and takes liquids. OBJECTIVE: VITAL SIGNS: He is afebrile. Heart rate is 115, respiratory rate is 28, oximetry is 95%, blood pressure is 115/73. LUNGS: Remarkable for rhonchi. HEART: Regular rhythm. ABDOMEN: Soft. LABORATORY DATA: No new lab. IMPRESSION: End-stage multiple malignancy situation with mouth cancer, lung cancer, and head and neck cancer. We will proceed forward with supportive care. I met with family and answered all their questions. Transfer to a hospice facility would be appropriate. Job ID: [id number] MTDD
[2019-01-06] MEDS: Lidocaine Patch Removal 1 EACH TOP SCH (23:00)
[2019-01-07] MEDS: Lorazepam 2 MG/ML VIAL SLOW IVP PRN ×5 (00:13→14:55)
[2019-01-07] MEDS: Morphine 4 MG/ML VIAL SLOW IVP PRN ×4 (03:17→14:52)
[2019-01-07] MEDS: Lidocaine 5% Patch TD SCH (09:17)
--- NOTE | 2019-01-07 09:55 | PRG ---
DATE OF SERVICE: 01/07/2019 SUBJECTIVE: Kraig Hernández is evaluated. His tidal volumes are getting smaller. He is starting to show exam findings of diaphragmatic fatigue. He has rhonchi. OBJECTIVE: HEART: Regular rhythm. ABDOMEN: Soft. VITAL SIGNS: He is afebrile. Heart rate is 113, oximetry is fluctuating between low 80s and mid 90s, blood pressure is 140/75 at 3:20 this morning. IMPRESSION: End-stage metastatic head and neck cancer, lung cancer, and mouth cancer. PLAN: Continue comfort care. Job ID: [id number]
[2019-01-07] MEDS: Morphine 2 MG/ML SYRINGE SLOW IVP PRN ×2 (12:30→20:26)
--- NOTE | 2019-01-07 19:41 | PDOC.HOSPP ---
- Subjective Encounter Date: 01/07/19 Encounter Time: 13:25 Subjective: f/u for end-stage head/neck/lung CA with persistent trach/oral bleeding. Transitioned to comfort care and receiving Morphine Sulfate/Duragesic/Tramadol. Sleeping mainly and calmer. - Objective Vital Signs & Weight: Vital Signs (12 hours) Temp Pulse Resp BP Pulse Ox 01/07/19 08:15 95.9 F L 100 28 H 111/68 97 Weight Admit Weight 184 lb 8 oz Weight 185 lb 3.013 oz Most Recent Monitor Data Heart Rate from ECG 110 NIBP 123/78 NIBP BP-Mean 109 Respiration from ECG 31 SpO2 99 I&O: 01/06/19 01/07/19 01/08/19 06:59 06:59 06:59 Intake Total 240 Output Total 580 400 150 Balance -340 -400 -150 Result Diagrams: 01/05/19 06:00 01/05/19 06:00 Hospitalist ROS - Medication Medications: Active Medications Generic Name Dose Route Start Last Admin Trade Name Freq PRN Reason Stop Dose Admin Atropine Sulfate 0 drop 01/06/19 03:58 01/06/19 08:16 Atropine 1% Ophth Soln FS 2 drop Q4H PRN Administration SECRETIONS Bisacodyl 10 mg 12/17/18 17:28 01/03/19 11:36 Dulcolax PO 10 mg DAILYPRN PRN Administration Constipation Al Hydroxide/Mg Hydroxide 60 0 ml 01/03/19 18:23 01/03/19 20:09 ml/ Diphenhydramine HCl 150 mg SSW 10 ml / Lidocaine HCl 60 ml/ PRN PRN Administration Nystatin 6,000,000 units Mouth Irritation Fentanyl 50 mcg 12/31/18 12:00 01/06/19 13:21 Duragesic TD 50 mcg Q3D ALANIS Administration Lidocaine 2 patch 12/21/18 09:00 01/07/19 09:17 Lidoderm 5% Patch TD Not Given DAILY ALANIS Lidocaine HCl 15 ml 12/31/18 01:32 01/03/19 10:23 Xylocaine 2% Viscous SSP 15 ml Q1H PRN Administration ORAL IRRITATION Lorazepam 1 mg 01/04/19 14:05 01/07/19 14:55 Ativan SLOW IVP 1 mg Q2H PRN Administration Anxiety/Agitation Miscellaneous Medication 1 each 12/21/18 21:00 01/06/19 23:00 Lidocaine Patch Removal TOP 1 each 2100 ALANIS Administration Morphine Sulfate 2 mg 01/05/19 17:06 01/07/19 12:30 Morphine SLOW IVP 2 mg Q4H PRN Administration Breakthrough Pain Morphine Sulfate 4 mg 01/06/19 10:39 01/07/19 14:52 Morphine SLOW IVP 4 mg Q2H PRN Administration Severe Pain (7-10) Scopolamine 3 mg 01/05/19 18:00 01/05/19 18:37 Transderm Scop TD 3 mg Q3D ALANIS Administration Sodium Chloride 10 ml 12/17/18 17:28 12/28/18 18:09 Flush - Normal Saline IVF 10 ml PRN PRN Administration Saline Flush Tramadol HCl 50 mg 12/31/18 10:12 01/03/19 18:49 Ultram PO 50 mg Q6H PRN Administration Moderate Pain (4-6) - Exam General - other findings: somnolent Eye: anicteric sclera ENT - other findings: trach with blood on periphery Neck: supple, no JVD, no thyromegaly Heart: RRR, no murmur, no gallops, no rubs, normal peripheral pulses Respiratory: tachypneic Respiratory - other findings: scattered rhonchi Gastrointestinal: soft, non-tender, non-distended, normal bowel sounds Extremities: no cyanosis Neurological - other findings: somnolent, lethargic Hosp A/P (1) Acute respiratory failure with hypoxia Code(s): J96.01 - ACUTE RESPIRATORY FAILURE WITH HYPOXIA Status: Acute Plan: Progressive failure, continue supportive mgmt, T-collar 8L/min (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 Plan: End-stage process (3) Central stenosis of spinal canal Code(s): M48.00 - SPINAL STENOSIS, SITE UNSPECIFIED Status: Chronic (4) Constipation Code(s): K59.00 - CONSTIPATION, UNSPECIFIED Status: Acute Qualifiers: Constipation type: slow transit constipation Qualified Code(s): K59.01 - Slow transit constipation Plan: Supportive, stool softeners prn (5) Leucocytosis Code(s): D72.829 - ELEVATED WHITE BLOOD CELL COUNT, UNSPECIFIED Status: Chronic (6) Oral bleeding Code(s): K13.79 - OTHER LESIONS OF ORAL MUCOSA Status: Acute Plan: Magic Mouthwash prn (7) Stable burst fracture of T11 vertebra Code(s): S22.081A - STABLE BURST FRACTURE OF T11-T12 VERTEBRA, INIT FOR CLOS FX Status: Chronic - Plan mental health social worker, DVT proph w/SCDs Consults: Palliative Care Clinical deterioration Trach care with RT Transition to Palliative/comfort care Magic Mouthwash PRN Palliative care/Hospice appreciated Morphine Sulfate/Ativan/Ultram Continue Duragesic patch Poor prognosis Code Status: DNAR
[2019-01-07] MEDS: Lidocaine Patch Removal 1 EACH TOP SCH (20:28)
[2019-01-08] MEDS: Morphine 4 MG/ML VIAL SLOW IVP PRN ×2 (09:45→18:29)
[2019-01-08] MEDS: Lidocaine 5% Patch TD SCH (13:18)
[2019-01-08] MEDS: Scopolamine 1.5 mg/72 hour Patch TD SCH (15:18)
--- NOTE | 2019-01-08 19:05 | PDOC.HOSPP ---
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 Started on antibiotics and bronchodilators for sepsis and COPD exacerbation with some improvement. Patient later was transfered to oncology for radiaton therapy but he later decomensated and was made comfort care only. Patient is sleeping and comfortable. - Objective Vital Signs & Weight: Vital Signs (12 hours) Temp Pulse Resp BP Pulse Ox 01/08/19 08:05 98.6 F 113 H 29 H 89/54 L 82 L 01/08/19 08:00 82 L Weight Admit Weight 184 lb 8 oz Weight 185 lb 3.013 oz Most Recent Monitor Data Heart Rate from ECG 110 NIBP 123/78 NIBP BP-Mean 109 Respiration from ECG 31 SpO2 99 I&O: 01/07/19 01/08/19 01/09/19 06:59 06:59 06:59 Intake Total 0 Output Total 400 200 50 Balance -400 -200 -50 Result Diagrams: 01/05/19 06:00 01/05/19 06:00 Hospitalist ROS - Medication Medications: Active Medications Generic Name Dose Route Start Last Admin Trade Name Freq PRN Reason Stop Dose Admin Atropine Sulfate 0 drop 01/06/19 03:58 01/06/19 08:16 Atropine 1% Ophth Soln FS 2 drop Q4H PRN Administration SECRETIONS Bisacodyl 10 mg 12/17/18 17:28 01/03/19 11:36 Dulcolax PO 10 mg DAILYPRN PRN Administration Constipation Al Hydroxide/Mg Hydroxide 60 0 ml 01/03/19 18:23 01/03/19 20:09 ml/ Diphenhydramine HCl 150 mg SSW 10 ml / Lidocaine HCl 60 ml/ PRN PRN Administration Nystatin 6,000,000 units Mouth Irritation Fentanyl 50 mcg 12/31/18 12:00 01/06/19 13:21 Duragesic TD 50 mcg Q3D ALANIS Administration Lidocaine 2 patch 12/21/18 09:00 01/08/19 13:18 Lidoderm 5% Patch TD Not Given DAILY ALANIS Lidocaine HCl 15 ml 12/31/18 01:32 01/03/19 10:23 Xylocaine 2% Viscous SSP 15 ml Q1H PRN Administration ORAL IRRITATION Lorazepam 1 mg 01/04/19 14:05 01/07/19 14:55 Ativan SLOW IVP 1 mg Q2H PRN Administration Anxiety/Agitation Miscellaneous Medication 1 each 12/21/18 21:00 01/07/19 20:28 Lidocaine Patch Removal TOP Not Given 2100 ALANIS Morphine Sulfate 2 mg 01/05/19 17:06 01/07/19 20:26 Morphine SLOW IVP 2 mg Q4H PRN Administration Breakthrough Pain Morphine Sulfate 4 mg 01/06/19 10:39 01/08/19 18:29 Morphine SLOW IVP 4 mg Q2H PRN Administration Severe Pain (7-10) Scopolamine 3 mg 01/05/19 18:00 01/08/19 15:18 Transderm Scop TD 3 mg Q3D ALANIS Administration Sodium Chloride 10 ml 12/17/18 17:28 12/28/18 18:09 Flush - Normal Saline IVF 10 ml PRN PRN Administration Saline Flush Tramadol HCl 50 mg 12/31/18 10:12 01/03/19 18:49 Ultram PO 50 mg Q6H PRN Administration Moderate Pain (4-6) - Exam General - other findings: sleeping/lethargic ENT: normocephalic atraumatic Neck - other findings: tracheostomy noted Heart: RRR Respiratory - other findings: fair air entry with transmitted sound Gastrointestinal: soft, non-distended Neurological - other findings: sleeping/lethargic Hosp A/P (1) Acute respiratory failure with hypoxia Code(s): J96.01 - ACUTE RESPIRATORY FAILURE WITH HYPOXIA Status: Acute (2) Sepsis Code(s): A41.9 - SEPSIS, UNSPECIFIED ORGANISM Status: Acute (3) COPD with acute exacerbation Code(s): J44.1 - CHRONIC OBSTRUCTIVE PULMONARY DISEASE W (ACUTE) EXACERBATION Status: Acute (4) Hypokalemia Code(s): E87.6 - HYPOKALEMIA Status: Acute (5) Hyponatremia Code(s): E87.1 - HYPO-OSMOLALITY AND HYPONATREMIA Status: Acute (6) Pneumonia Code(s): J18.9 - PNEUMONIA, UNSPECIFIED ORGANISM Status: Acute (7) Stage 4 lung cancer Code(s): C34.90 - MALIGNANT NEOPLASM OF UNSP PART OF UNSP BRONCHUS OR LUNG Status: Chronic (8) Tracheostomy complication, unspecified Code(s): J95.00 - UNSPECIFIED TRACHEOSTOMY COMPLICATION Status: Acute (9) Tracheostomy care Code(s): Z43.0 - ENCOUNTER FOR ATTENTION TO TRACHEOSTOMY Status: Acute (10) Dehydration Code(s): E86.0 - DEHYDRATION Status: Acute (1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 (12) Constipation Code(s): K59.00 - CONSTIPATION, UNSPECIFIED Status: Acute Qualifiers: Constipation type: slow transit constipation Qualified Code(s): K59.01 - Slow transit constipation (13) Back pain Code(s): M54.9 - DORSALGIA, UNSPECIFIED Status: Acute (14) Leucocytosis Code(s): D72.829 - ELEVATED WHITE BLOOD CELL COUNT, UNSPECIFIED Status: Chronic (15) Laryngeal cancer Status: Acute (16) Stable burst fracture of T11 vertebra Code(s): S22.081A - STABLE BURST FRACTURE OF T11-T12 VERTEBRA, INIT FOR CLOS FX Status: Chronic (17) Central stenosis of spinal canal Code(s): M48.00 - SPINAL STENOSIS, SITE UNSPECIFIED Status: Chronic - Plan Continue comfort care with morphine and ativan as needed.
--- NOTE | 2019-01-08 19:17 | PRG ---
DATE OF SERVICE: 01/08/2019 SUBJECTIVE: Kraig Hernández remains somnolent. He has not opened his eyes since yesterday. He is still receiving morphine for pain. OBJECTIVE: VITAL SIGNS: Stable. His respiratory rate is in the 30s. His tidal volumes are no more than 150 or 200 mL. LUNGS: There are rhonchi bilaterally. HEART AND ABDOMEN: Unchanged. He has significant signs of respiratory muscle weakness. IMPRESSION: End-stage metastatic lung cancer, head and neck cancer, mouth cancer. PLAN: Ameya with family, answered all their questions for approximately 30 minutes. Job ID: [id number] MTDD
[2019-01-08] MEDS: Lidocaine Patch Removal 1 EACH TOP SCH (19:18)
[2019-01-08 19:50] VITALS: BP 73/44; TEMP 97.8
--- NOTE | 2019-01-11 10:21 | DIS ---
DATE OF ADMISSION: 12/17/2018 DATE OF DISCHARGE: 01/08/2019 DATE OF : 01/08/2019. TIME OF : 2354 hours. PRIMARY CARE PHYSICIAN: Dr. Katty Leroy. FINAL DIAGNOSES: 1. Acute respiratory failure with hypoxia. 2. Sepsis. 3. Chronic obstructive pulmonary disease with acute exacerbation. 4. Pneumonia/obstructive pneumonia. 5. Stage IV lung cancer. 6. Tracheostomy complication. 7. Bleeding from tracheostomy. 8. Recurrent laryngeal cancer with airway obstruction. 9. Cancer of floor of the mouth. 10. Dehydration. 11. Hypokalemia. 12. Hyponatremia. 13. Osseous metastasis. 14. Chronic bone pain. 15. Leukocytosis. 16. Constipation. 17. Stable burst fracture of T11 vertebrae. 18. Central stenosis of spinal canal. 19. Physical deconditioning. CONSULTANTS: 1. Hematology/Oncology. 2. Pulmonary and Critical Care. 3. Radiation oncologist. HOSPITAL COURSE: A 63-year-old male with squamous cell cancer of the larynx, status post tracheostomy; COPD; recent left upper lobe second primary lung cancer and mouth floor, squamous cell cancer; admitted due to worsening shortness of breath and increased secretions associated with bleeding from tracheostomy and poor Passy-Silverton valve tolerance. There was also poor oral intake prior to presentation. Impression of acute respiratory failure from airway obstruction due to recurrent laryngeal cancer associated with sepsis due to obstructive pneumonia with COPD exacerbation was made and the patient was started on bronchodilators, oxygen supplementation, antibiotics, steroids, and other supportive care with improvement. The patient recently had an MRI of the back, which showed severe spinal stenosis due to secondary pathologic burst fracture of T11. With improvement in general condition, it was felt that the patient would soon due to progression of the laryngeal cancer and also is at increased risk of cord compression due to progression of hence Hematology/Oncology consult was obtained. Keytruda chemotherapy is planned, but this could only be undertaken when the patient is strong enough to be discharged home. On further discussion, radiation oncologist was involved, and due to advancement of the spinal stenosis, radiation therapy was considered and the patient was moved down to oncology floor for further treatment. However, the patient's condition deteriorated further and following further discussion with the patient and family, they elected to comfort only care. Hospice service consideration was discussed, , hence the patient was treated with comfort care only in the hospital and he later passed on January 08, 2019, at 2354 hours. Job ID: [id number]
--- NOTE | 2019-01-21 00:36 | PQF ---
[facility] Director [employer] FREDERIC Rivero TONI MD [id number] CLINICAL DOCUMENTATION CLARIFICATION FORM: POST DISCHARGE Addendum to original discharge summary date: ____ Late entry note date: __ DATE: 01/21/19 ATTN: Hernandez Florez Please exercise your independent, professional judgment in responding to the clarification form. Clinical indicators are provided on the bottom of this form for your review Kindly clarify regarding pneumonia Please check appropriate box(s): [ ] Aspiration Pneumonia [ ] Healthcare-associated pneumonia [ ] Pneumonia secondary to (specify organism / underlying disease) [ ] Simple Pneumonia (community acquired - nosocomial) [ ] Pneumonia of unknown etiology [ ] Other diagnosis [ ] Unable to determine In addition, please specify: Present on Admission (POA): [ ] Yes [ ] No [ ] Unable to determine For continuity of documentation, please document condition throughout progress notes and discharge summary. Thank You. CLINICAL INDICATORS - SIGNS / SYMPTOMS / LABS ED DX: Hospital acquired PNA - ED report Aspiration pneumonia - PN dated 12/[address] Carmona Pt wants to eat by mouth knowing he can aspirate - PN dated 12/[address] Scott Healthcare-associated PNA, likely; sepsis w/o end organ damage - PN dated 12/[address] Santiago healthcare associated PNA - PN dated 12/[address] Florez my have aspirated some bld - Event note dated 01/04 by Rylan East RISK FACTORS Acute respiratory failure with hypoxia - Discharge summary COPD with acute exacerbation - discharge summary Recurrent laryngeal cancer wtih airway obstruction - discharge summary TREATMENTS: IV Vancomycin started on 12/17 - Medications [facility] Director [employer] Win[employer] ViewerAmoxicillin from 12/21 to - Medications Pulmonary consult dated 12/18 Serial CXRs done (This form is maintained as a part of the permanent medical record) 2014 [employer], [employer] All Rights Reserved Darrick [email or web address] [phone] [email or web address]
== END 2019-01-08 23:54 | disposition expired | DRG 871 ==
LOC: ERS 13:22 → IMCU/EMU 15:00 → ONC 12-24 16:01 → CCU 01-04 01:58 → ONC 01-05 12:49
PROVIDERS: ADMIT Internal Medicine; ATTEND Internal Medicine
DX: A41.9 Sepsis, unspecified organism (principal); J18.9 Pneumonia, unspecified organism; J96.01 Acute respiratory failure with hypoxia; S22.081A Stable burst fracture of T11-T12 vertebra, initial encounter for closed fracture; J95.01 Hemorrhage from tracheostomy stoma; C34.90 Malignant neoplasm of unspecified part of unspecified bronchus or lung; E87.1 Hypo-osmolality and hyponatremia; J44.1 Chronic obstructive pulmonary disease with (acute) exacerbation; J44.0 Chronic obstructive pulmonary disease with (acute) lower respiratory infection; C79.51 Secondary malignant neoplasm of bone; Z51.5 Encounter for palliative care; Z66 Do not resuscitate; E87.6 Hypokalemia; Y83.8 Other surgical procedures as the cause of abnormal reaction of the patient, or of later complication, without mention of misadventure at the time of the procedure; I10 Essential (primary) hypertension; K13.79 Other lesions of oral mucosa; M54.9 Dorsalgia, unspecified; C32.9 Malignant neoplasm of larynx, unspecified; K21.9 Gastro-esophageal reflux disease without esophagitis; E78.00 Pure hypercholesterolemia, unspecified; E78.5 Hyperlipidemia, unspecified; E86.0 Dehydration; C04.9 Malignant neoplasm of floor of mouth, unspecified; C76.0 Malignant neoplasm of head, face and neck; M48.00 Spinal stenosis, site unspecified; Z87.891 Personal history of nicotine dependence; W19.XXXA Unspecified fall, initial encounter; R63.0 Anorexia; Z68.28 Body mass index [BMI] 28.0-28.9, adult; K59.01 Slow transit constipation; K27.9 Peptic ulcer, site unspecified, unspecified as acute or chronic, without hemorrhage or perforation
CPT/HCPCS: 36415; 71045; 77014; 77290; 77306; 77332; 77334; 77412; 77417; 80048; 80053; 80069; 80202; 82550; 82805; 83735; 83930; 83935; 84300; 85007; 85025; 85027; 85610; 85730; 86850; 86900; 86901; 87040; 90471; 90670; 93005; 94640; 94760; 96365; 96367; 96375; G0009; J0295; J1100; J1642; J2060; J2270; J2274; J2543; J2920; J3010; J3370; J3475; J3490; J7070; J7512; J7620; Q0163